=== PATIENT | female | born 1950 | race Caucasian/White ===

== ENCOUNTER 2019-09-11 11:10 | Outpatient (CLI) | payer MEDICARE, MEDICAID, SELFPAY ==
--- NOTE | 2019-09-11 11:12 | MM_ITS ---
WS: [id number] BILATERAL DIGITAL SCREENING MAMMOGRAPHY WITH CAD CLINICAL INFORMATION: SCREENING COMPARISON: September 24, 2016 TECHNIQUE: Bilateral CC and MLO views. FINDINGS: Scattered fibroglandular densities bilaterally. Incidental axillary lymph nodes. A few stable cluster ed calcifications. Vascular calcification. No suspicious focal mass, asymmetry, calcifications, or ar chitectural distortion. No evidence of malignancy. MM/[place] [id number] IMPRESSION: BI-RADS: 2-Benign FOLLOW UP: 1 Year Follow-up Recommend return to annual screening mammography.
== END 2019-09-11 11:11 | disposition home or self-care (01) ==
LOC: RADSHAW 11:10
PROVIDERS: Family Provider Family Medicine; PCP Family Medicine; Visit Provider Family Medicine
DX: Z12.31 Encounter for screening mammogram for malignant neoplasm of breast (principal)
CPT/HCPCS: 77067

== ENCOUNTER 2020-05-20 20:00 | Outpatient (CLI) | payer MEDICARE, MEDICAID, SELFPAY | END 2020-05-20 20:01 | disposition home or self-care (01) | LOC: SLEEP 05-21 09:34 | PROVIDERS: Family Provider Family Medicine; PCP Family Medicine; Visit Provider Family Medicine | DX: G47.33 Obstructive sleep apnea (adult) (pediatric) (principal) | CPT/HCPCS: 95810; 95811 ==

== ENCOUNTER 2020-07-03 20:00 | Outpatient (CLI) | payer MEDICARE, MEDICAID, SELFPAY | END 2020-07-03 20:01 | disposition home or self-care (01) | LOC: SLEEP 07-04 10:13 | PROVIDERS: Family Provider Family Medicine; PCP Family Medicine; Visit Provider Family Medicine | DX: G47.33 Obstructive sleep apnea (adult) (pediatric) (principal) | CPT/HCPCS: 95811 ==

== ENCOUNTER 2021-02-05 09:47 | Outpatient (CLI) | payer MEDICARE, MEDICAID, SELFPAY | END 2021-02-05 09:48 | disposition home or self-care (01) | LOC: WOUND 09:48 | PROVIDERS: Family Provider Family Medicine; PCP Family Medicine; Visit Provider Nurse Practitioner Family | DX: E11.622 Type 2 diabetes mellitus with other skin ulcer (principal); L97.902 Non-pressure chronic ulcer of unspecified part of unspecified lower leg with fat layer exposed | CPT/HCPCS: 11042; G0463 ==

== ENCOUNTER 2021-02-16 10:31 | Outpatient (CLI) | payer MEDICARE, MEDICAID, SELFPAY | END 2021-02-16 10:32 | disposition home or self-care (01) | LOC: WOUND 10:35 | PROVIDERS: Family Provider Family Medicine; PCP Family Medicine; Visit Provider Nurse Practitioner Family | DX: E11.622 Type 2 diabetes mellitus with other skin ulcer (principal); L97.818 Non-pressure chronic ulcer of other part of right lower leg with other specified severity | CPT/HCPCS: 11042 ==

== ENCOUNTER 2021-02-26 08:02 | Outpatient (CLI) | payer MEDICARE, MEDICAID, SELFPAY | END 2021-02-26 08:03 | disposition home or self-care (01) | LOC: WOUND 08:06 | PROVIDERS: Family Provider Family Medicine; PCP Family Medicine; Visit Provider Nurse Practitioner Family | DX: Z09 Encounter for follow-up examination after completed treatment for conditions other than malignant neoplasm (principal) | CPT/HCPCS: 99212 ==

== ENCOUNTER 2021-03-04 12:45 | Outpatient (CLI) | payer MEDICARE, MEDICAID, SELFPAY ==
--- NOTE | 2021-03-04 12:45 | USCV_ITS ---
Roz Mann Age: 70 Gender: F : 1950 Exam Date: 03/04/2021 12:39 Ordering Phys: Shanel Calderon DO Technologist: Marlin Mohamud Exam Location: [facility] – [place] Indication: LOWER EXTREMITY ULCER RIGHT LEFT Brachial 153.00 mmHg Brachial 144.00 mmHg Pressure (mmHg) Waveform Pressure (mmHg) Waveform 141.00 BUILDINGS AND GROUNDS DIRECTOR 125.00 136.00 DPA 121.00 0.92 Ankle/Brachial Index 0.82 124.00 Pre-Exercise Toe Pressure 97.00 0.81 Pre-Exercise Toe/Brachial Index 0.63 FINDINGS Slightly diminished resting ABIs bilaterally-0.92 on the right side and 0.82 on the left side Normal TBI on the right side with a diminished TBI on the left side CONCLUSIONS Features of mild peripheral artery disease on the left side. Possibly no significant arterial obstruction on the right side Dr Ebony Samaniego MD [facility] (Electronically Signed) Final Date: 08 March 2021 21:29 S
== END 2021-03-04 12:46 | disposition home or self-care (01) ==
LOC: US 12:47
PROVIDERS: PCP Family Medicine; Visit Provider Dermatology
DX: L95.0 Livedoid vasculitis (principal); I99.8 Other disorder of circulatory system; L97.909 Non-pressure chronic ulcer of unspecified part of unspecified lower leg with unspecified severity
CPT/HCPCS: 93922

== ENCOUNTER 2021-09-15 18:05 | Inpatient (IN) | payer MEDICARE, MEDICAID, SELFPAY ==
[2021-09-15 18:16] VITALS: BP 110/63; PULSE 103; RESP 20; TEMP 36.8; O2SAT 88; BMI 51.5
--- NOTE | 2021-09-15 18:31 | ECG_ITS ---
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 [id number]
--- NOTE | 2021-09-15 18:31 | XRR_ITS ---
PROCEDURE INFORMATION: Exam: XR Chest Exam date and time: 09/15/2021 6:31 PM Age: 71 years old Clinical indication: Shortness of breath; Additional info: SOB TECHNIQUE: Imaging protocol: XR of the chest. Views: 1 view. COMPARISON: No relevant prior studies available. FINDINGS: Lungs: Ill-defined interstitial and alveolar opacities in the lower lungs. Findings are suspicious for pneumonia, including atypical and viral organisms. Pleural spaces: No pleural effusion. No pneumothorax. Heart/Mediastinum: The cardiac silhouette is mildly enlarged. Mediastinal contours are unremarkable. Bones/joints: Unremarkable for age. XR/XR chest 1V portable [id number] IMPRESSION: 1. Ill-defined interstitial and alveolar opacities in the lower lungs. Findings are suspicious for pneumonia, including atypical and viral organisms. Recommend clinical correlation. Recommend followup chest imaging to insure resolution of these findings. 2. Incidental/nonacute findings are listed in the report.
[2021-09-15] MEDS: dexamethasone 4 mg/mL INJ 6 MG IVP (18:47)
[2021-09-15 18:48] LABS: Basophils % 0.3 %; Eosinophils # 0.3 10^3/uL (0.0-0.8); Eosinophils % 2.2 %; Hematocrit 38.5 % (37.0-47.0); Lymphocytes # 2.2 10^3/uL (0.8-4.8); Lymphocytes % 18.8 %; Mean Corpuscular HGB Conc 31.2 g/dL (30.0-36.0); Mean Corpuscular Hemoglobin 28.1 pg (28.0-34.0); Mean Corpuscular Volume 90.2 fl (81-99); Mean Platelet Volume 11.8 fL (7.4-10.4); Monocytes # 0.7 10^3/uL (0.2-0.9); Monocytes % 5.7 %; Neutrophils # 8.49 10^3/uL (1.8-7.7); Neutrophils % 72.2 %; Nucleated Red Blood Cells % 0 %; Platelet Count 191 10^3/cmm (130-400); Red Blood Count 4.27 10^6/uL (4.1-5.3); Red Cell Distribution Width 15.3 % (12.1-15.1); White Blood Count 11.8 10^3/uL (4.0-10.0)
[2021-09-15 18:50] VITALS: PULSE 126; RESP 18; O2SAT 97
[2021-09-15] MEDS: ipratropium-albuterol 3 mL Neb INHALATION ×2 (18:50→21:45)
[2021-09-15 18:54] VITALS: PULSE 128
--- NOTE | 2021-09-15 18:54 | W.ED.SOB ---
HPI - SOB/Dyspnea General: Chief Complaint: Shortness of Breath/Dyspnea Stated Complaint: O2 Stats Low 84 Time Seen by Provider: 09/15/21 18:17 Source: patient Mode of arrival: ambulatory Limitations: no limitations History of Present Illness: HPI Narrative: 71-year-old female states that she has been having fever chills body aches cough and increasing dyspnea over the last 3 days. She is got much more short of breath today and is in distress here able to only speak in 1-2 word sentences patient is currently on 6 L of oxygen states she does not wear oxygen at baseline she does have a history of obesity and diabetes denies any history of any lung issues in the past. Denies any chest pain. Associated symptoms: Reports fever(s); Deny abdominal pain, chest pain, nausea or vomiting Review of Systems Const: Reports: fever(s), chills and body aches; Denies: change in appetite Eyes: Denies: blurry vision or eye discomfort ENMT: Denies: throat pain or dental pain Card: Denies: chest pain Resp: Reports: dyspnea and non-productive cough GI: Denies: abdominal pain, nausea, vomiting or diarrhea : Denies: dysuria Musc: Denies: neck pain or back pain Skin/Breast: Denies: rash Neuro: Denies: headache(s) Psych: Denies: depression Ede/Lymph: Denies: easy bruising All/Imm: Denies: urticaria PFSH ED PFSH: Medical History Diabetes Essential (primary) hypertension Hyperlipidemia Surgical History H/O: hysterectomy History of appendectomy History of hernia surgery History of tonsillectomy History of tubal ligation Family History Other CAD (coronary artery disease) Social History Smoking and tobacco status: never smoked Alcohol intake: never History of recent travel: No Physical Exam Const: COMMON NORMALS: patient oriented x3 GENERAL APPEARANCE: in distress and ill appearing HENMT: COMMON NORMALS: normocephalic and atraumatic HEAD & SCALP: normocephalic and atraumatic Eye: COMMON NORMALS: Equal, round and reactive pupils present and EOMs intact bilaterally PUPIL: Yes Equal, round and reactive pupils present Neck/C-Spine: COMMON NORMALS: full ROM and supple Chest: COMMONS NORMALS: normal inspection of the chest and normal palpation of entire chest wall Resp: COMMON NORMALS: No retractions EFFORT & INSPECTION: Yes tachypneic, Yes respiratory distress and Yes labored AUSCULTATION: rales Cardio: COMMON NORMALS: regular rate, regular rhythm and No murmurs present (Cardio) RATE: regular rate RHYTHM: regular rhythm GI: COMMON NORMALS: Normal to inspection, nondistended, normoactive bowel sounds present, Soft to palpation, non-tender and no masses PALPATION: Yes Soft to palpation Extremity: COMMON NORMALS: normal to inspection and full ROM Neuro: COMMON NORMALS: patient oriented x3, moves all extremities and no focal motor deficits Psych: COMMON NORMALS: mental status grossly normal, Normal thought process present and cooperative THOUGHT PROCESS: Normal thought process present Skin: COMMON NORMALS: no rashes or lesions noted and no wounds GENERAL SKIN EXAM: no rashes or lesions noted Course Vital Signs: Vital signs: Vital Signs Temperature 98.3 F 09/15/21 18:16 Pulse Rate 82 09/15/21 22:14 Respiratory Rate 22 H 09/15/21 22:14 Blood Pressure 98/61 09/15/21 22:14 Pulse Oximetry 94 09/15/21 22:14 MDM - SOB/Dyspnea Medical Decision Making Patient presents here with dyspnea with hypoxia from COVID. Her PCR did come back positive for COVID she is doing well here on nasal cannula blood pressures been stable was originally in A. fib with RVR but is since heart rate is now in the 70s patient seen by hospitalist will admit. Lab Data : 09/15/21 18:37 09/15/21 18:37 Labs/Radiology: Radiology Impressions Chest X-Ray 09/15/21 18:31 IMPRESSION: 1. Ill-defined interstitial and alveolar opacities in the lower lungs. Findings are suspicious for pneumonia, including atypical and viral organisms. Recommend clinical correlation. Recommend followup chest imaging to insure resolution of these findings. 2. Incidental/nonacute findings are listed in the report. Laboratory Results WBC 11.8 10^3/uL (4.0-10.0) H 09/15/21 18:37 RBC 4.27 10^6/uL (4.1-5.3) 09/15/21 18: Hgb 12.0 g/dL (11.5-15.3) 09/15/21 18: Hct 38.5 % (37.0-47.0) 09/15/21 18: MCV 90.2 fl (81-99) 09/15/21 18: MCH 28.1 pg (28.0-34.0) 09/15/21 18: MCHC 31.2 g/dL (30.0-36.0) 09/15/21 18: RDW 15.3 % (12.1-15.1) H 09/15/21 18: Plt Count 191 10^3/cmm (130-400) 09/15/21 18: MPV 11.8 fL (7.4-10.4) H 09/15/21 18:37 Neut % (Auto) 72.2 % 09/15/21 18: Lymph % (Auto) 18.8 % 09/15/21 18:37 [place] % (Auto) 5.7 % 09/15/21 18:37 Eos % (Auto) 2.2 % 09/15/21 18:37 Baso % (Auto) 0.3 % 09/15/21 18:37 Neut # (Auto) 8.49 10^3/uL (1.8-7.7) H 09/15/21 18:37 Lymph # (Auto) 2.2 10^3/uL (0.8-4.8) 09/15/21 18:37 [place] # (Auto) 0.7 10^3/uL (0.2-0.9) 09/15/21 18:37 Eos # (Auto) 0.3 10^3/uL (0.0-0.8) 09/15/21 18:37 Baso # (Auto) 0.0 10^3/uL (0.0-0.1) 09/15/21 18:37 Nucleated RBC % (auto) 0 % 09/15/21 18: Nucleated RBCs # 0.0 /100WBC 09/15/21 18: D-Dimer 1.67 ug/mIFEU (0-0.59) H 09/15/21 18:37 Specimen Type Arterial 09/15/21: Sample Site Radial, left 09/15/21: ABG pH 7.46 (7.35-7.45) H 09/15/21: ABG pCO2 35.4 mmHg (35-45) 09/15/21: ABG pO2 95.0 mmHg (80.0-100.0) 09/15/21: ABG HCO3 25.2 mmol/L (22-26) 09/15/21: ABG Base Excess 1.6 mmol/L (-2.0-2.0) 09/15/21: Maximino Test Pos 09/15/21: Hematocrit 36.7 % (37-47) L 09/15/21: O2 Delivery Device Nc 09/15/21: O2 Liters/Min 6.0 % 09/15/21: Dental Technician ID Buttr 09/15/21: Sodium 137 mmol/L (136-145) 09/15/21 18:37 Potassium 4.1 mmol/L (3.5-5.1) 09/15/21 18:37 Chloride 100 mmol/L (98-107) 09/15/21 18:37 Carbon Dioxide 23 mmol/L (22-29) 09/15/21 18:37 Anion Gap 18.1 (5-19) 09/15/21 18:37 BUN 18 mg/dL (8-23) 09/15/21 18:37 Creatinine 1.3 mg/dL (0.5-0.9) H 09/15/21 18:37 GFR Calculation Not Reportable 09/15/21 18:37 Glucose 200 mg/dL (65-115) H 09/15/21 18:37 Calculated Osmolality 292 mOsm/kg (285-295) 09/15/21 18:37 Lactic Acid 1.8 mmol/L (0.5-2.2) 09/15/21 18:37 Calcium 8.1 mg/dL (8.5-10.5) L 09/15/21 18:37 Total Bilirubin 0.2 mg/dL (0.15-1.2) 09/15/21 18:37 AST 34 U/L (0-32) H 09/15/21 18:37 ALT 22 U/L (0-33) 09/15/21 18:37 Alkaline Phosphatase 326 IU/L (35-105) H 09/15/21 18:37 C-Reactive Protein 162.5 mg/L (0.0-4.9) H 09/15/21 18:37 NT-Pro-B Natriuret Pep 578 pg/mL (0-125) H 09/15/21 18:37 Total Protein 6.7 g/dL (6.6-8.7) 09/15/21 18:37 Albumin 3.7 g/dL (3.5-5.2) 09/15/21 18:37 Globulin 3.0 g/dL (1.3-4.6) 09/15/21 18:37 Procalcitonin 0.33 ng/mL (0-0.5) 09/15/21 18:37 TSH 2.13 uIU/mL (0.27-4.20) 09/15/21 18:37 Coronavirus 229E (PCR) Not detected (NOT DETECT) 09/15/21 18:47 SARS-CoV-2 (PCR) Detected (NOT DETECT) A 09/15/21 18:47 SARS-CoV-2 Ag (Rapid) Negative (Negative) 09/15/21 19:45 EKG Data EKG 1: I personally reviewed and interpreted this EKG as follows: EKG Interpretation Date: 09/15/21 EKG interpretation time: 18:52 Interpretation: afib rvr hr [address] or t wave abnormalities qrs 97 qtc 377 Critical Care Time Critical Care Time: Critical Care Time: Yes Total Critical Care Time: 40 Attestation: The high probability of a clinically significant, sudden or life threatening deterioration of the patient's resp system(s) required my full and direct attention, intervention and personal management. The critical care time is as shown. This time is in addition to time spent performing any reported procedures but includes the following: [x] Data and vital sign review and interpretation [x] Patient assessment, examination and intervention [x] Documentation [x] Medication orders and management Discharge Plan Discharge Patient Disposition: Admitted As Inpatient Clinical Impression: COVID-19, Respiratory failure with hypoxia Condition: Stable Coding Level of Care Code ED Finance Professor for Chg Fwd Exam Comprehensive
--- NOTE | 2021-09-15 18:55 | PC.NURSE ---
pt on continuous spo2, nibp, cm.
[2021-09-15 19:07] LABS: Lactic Sepsis W/Reflex 1.8 mmol/L (0.5-2.2)
--- NOTE | 2021-09-15 19:17 | PC.NURSE ---
report given to cornell vang assumed care.
[2021-09-15 19:27] LABS: D Dimer 1.67 ug/mIFEU (0-0.59)
[2021-09-15 19:40] LABS: ABG PCO2 35.4 mmHg (35-45); ABG PH Result 7.46 (7.35-7.45); Arterial Blood Gas Hematocrit 36.7 % (37-47); Base Excess ABG 1.6 mmol/L (-2.0-2.0); Blood Gas Allen Test Pos; Blood Gas Sample Site Radial, left; Blood Gas Sample Type Arterial; HCO3 ABG 25.2 mmol/L (22-26); Oxygen Device NC
[2021-09-15 19:43] LABS: Alanine Aminotransferase 22 U/L (0-33); Albumin Level 3.7 g/dL (3.5-5.2); Alkaline Phosphatase 326 IU/L (35-105); Anion Gap 18.1 (5-19); Aspartate Amino Transferase 34 U/L (0-32); Blood Urea Nitrogen 18 mg/dL (8-23); C Reactive Protein 162.5 mg/L (0.0-4.9); Calcium 8.1 mg/dL (8.5-10.5); Carbon Dioxide 23 mmol/L (22-29); Chloride 100 mmol/L (98-107); Creatinine Clr Calc Pharmacy 53.0871; Glucose 200 mg/dL (65-115); NT Pro B Type Natriuretic Pept 578 pg/mL (0-125); Osmolality Calculated 292 mOsm/kg (285-295); Potassium 4.1 mmol/L (3.5-5.1); Sodium 137 mmol/L (136-145); Total Bilirubin 0.2 mg/dL (0.15-1.2); Total Protein 6.7 g/dL (6.6-8.7)
[2021-09-15 20:13] LABS: SARS Covid-2 Antigen Negative (Negative)
[2021-09-15 21:02] LABS: Procalcitonin 0.33 ng/mL (0-0.5)
--- NOTE | 2021-09-15 21:10 | P.HP_ITS ---
Providers/Chief Complaint Admitting Physician: Nitesh Carney MD, hospitalist Primary Care Provider: Rm Cabral MD Chief Complaint: O2 Stats Low 84 History of Present Illness Roz Mann is a 71 year old female who presents to the emergency department with shortness of breath. She reports she has been ill for at least 2 weeks, started with nasal congestion and cough. In the last 3 to 4 days she has run a fever. She has felt significantly short of breath, and cough is productive of colored sputum. She denies any hemoptysis, chest pain. She reports she is vaccinated for Covid but has not received a booster. She denies any exposure to Covid. She has not had any nausea or vomiting. She denies any prior history of cardiac issues or arrhythmias. Review of Systems General: Reports: 10 or more systems reviewed and unremarkable except in HPI and below Const: Reports: fever(s) and fatigue Eyes: Denies: change in vision ENMT: Denies: throat pain Card: Denies: chest pain Resp: Reports: dyspnea and productive cough GI: Denies: abdominal pain, hematochezia or melena : Denies: flank pain Musc: Denies: neck pain Skin/Breast: Denies: rash Neuro: Denies: headache(s) Psych: Denies: anxiety Endo: Denies: polyuria Ede/Lymph: Denies: easy bruising All/Imm: Denies: urticaria Medications/Allergies Home Medications Medication Instructions Recorded Confirmed Last Taken Type aspirin 81 mg tablet,delayed 81 mg PO DAILY 01/29/21 08/24/21 Unknown History release (Adult Aspirin Regimen) glipizide 5 mg tablet 2.5 mg PO DAILY 01/29/21 08/24/21 Unknown History insulin degludec 100 unit/mL (3 15 unit SUBCUT DAILY 01/29/21 08/24/21 Unknown History mL) subcutaneous pen (Tresiba FlexTouch U-100 insulin) lisinopril 20 1 tab PO DAILY 01/29/21 08/24/21 Unknown History mg-hydrochlorothiazide 25 mg tablet metformin 1,000 mg tablet 1,000 mg PO BID 01/29/21 08/24/21 Unknown History metronidazole 1 % topical cream 1 applic TOPICAL DAILY 01/29/21 08/24/21 Unknown History rosuvastatin 20 mg tablet 20 mg PO DAILY 01/29/21 08/24/21 Unknown History diabetic shoes with 3 molded #1 ea 07/13/21 08/24/21 Unknown Rx inserts fluticasone propionate 50 1 spray INTRANASAL DAILY 07/13/21 08/24/21 Unknown History mcg/actuation nasal spray,suspension gabapentin 300 mg capsule 300 mg PO TID 30 Days #90 cap 07/13/21 08/24/21 Unknown Rx montelukast 10 mg tablet 10 mg PO DAILY 07/13/21 08/24/21 Unknown History gabapentin 300 mg capsule 300 mg PO TID 30 Days #90 cap 08/24/21 08/24/21 Unknown Rx Allergies Allergy/AdvReac Type Severity Reaction Status Date / Time No Known Allergies Allergy Verified 07/13/21 15:26 PFSH Acute PFSH: Medical History (Updated 09/15/21 @ 22:37 by Sommer Santo MD) Diabetes Essential (primary) hypertension Hyperlipidemia Surgical History (Updated 09/15/21 @ 21:12 by Nitesh Carney MD) H/O: hysterectomy History of appendectomy History of hernia surgery History of tonsillectomy History of tubal ligation Family History (Updated 09/15/21 @ 21:13 by Nitesh Carney MD) Other CAD (coronary artery disease) Social History (Updated 09/15/21 @ 21:13 by Nitesh Carney MD) Smoking and tobacco status: never smoked Alcohol intake: never History of recent travel: No Vitals/I&O/Wt Last Vital Signs Temp 98.3 F 09/15/21 18:16 Pulse 128 H 09/15/21 18:54 Resp 18 09/15/21 18:50 BP 110/63 09/15/21 18:16 Pulse Ox 97 09/15/21 18:50 Weight last 48 hrs Weight 136.078 kg Physical Exam Narrative: General exam is a white female, visibly short of breath with accessory muscle use on 6 L of oxygen HEENT: Pupils equally round. Oropharynx clear. Neck supple no lymphadenopathy or thyromegaly Cardiovascular irregular, irregular without murmur Lungs coarse breath sounds at the bases bilaterally Abdomen is soft nontender positive bowel sounds. Obese. exam is deferred Extremities no cyanosis clubbing or edema, cap refill brisk Skin without rash Neuro no focal deficits. Data : 09/15/21 18:37 09/15/21 18:37 Other Labs: EKG demonstrates atrial fibrillation with rapid ventricular rate, rate of around 125, normal axis Chest x-ray demonstrates bibasilar infiltrate. Dimer is 1.67 LFTs demonstrate alk phos of 326, CRP of 162, BNP of 578. AST slightly high at 34 Rapid Covid negative, PCR pending Micro: Microbiology 09/15/21 19:26 Blood Culture - Preliminary Blood SPECIMEN COLLECTED 09/15/21 18:37 Blood Culture - Preliminary Blood SPECIMEN COLLECTED A&P Assessment and plan (1) Pneumonia: Covid PCR has now come back positive. Initiate remdesivir, dexamethasone CRP is elevated, however patient did not start having fevers until 3 days ago in this 2-week illness. There may be superimposed bacterial pneumonia. We will not initiate baricitinib or Actemra currently. Budesonide, DuoNeb, incentive spirometer, flutter valve Prone is much as possible IV antibiotics consisting of Rocephin and azithromycin in case superimposed bacterial pneumonia is present Sputum culture, MRSA PCR. Check urinalysis Status: Acute (2) Atrial fibrillation: Appears to be in rapid ventricular rate on admission, but with treatment of respiratory status with breathing treatments, and oxygen heart rate has drifted down to 82. Full dose anticoagulation Check echocardiogram, TSH, magnesium Initiate low-dose metoprolol Status: Acute (3) Acute kidney injury: Hydrated in the emergency department Continue oral hydration, monitoring respiratory status closely Repeat BMP in the morning Check urinalysis Status: Acute (4) Elevated d-dimer: No further exploration currently. Patient will be on full dose anticoagulation with Lovenox secondary to atrial fibrillation Status: Acute Plan Multiple other medical problems as outlined in past medical history Full code Lovenox will suffice for DVT prophylaxis Protonix for GI prophylaxis Attestations Medical Necessity Statement*: Will need greater than 2 midnight stay for evaluation and treatment of acute hypoxic respiratory failure with pneumonia requiring significant amounts of oxygen. Coding Level of Care Code Acute Medical Billing Clerk for Maurilio Cao Diagnoses Pneumonia J18.9 Atrial fibrillation I48.91 Acute kidney injury N17.9 Elevated d-dimer R79.89
[2021-09-15] MEDS: cefTRIAXone 1,000 MG in sodium chloride 0.9% (plus) 50 ML 100 MG IV (21:33)
[2021-09-15] MEDS: sodium chloride 0.9% 1,000 ML 999 ML IV (21:33)
[2021-09-15 21:44] LABS: Thyroid Stimulating Hormone 2.13 uIU/mL (0.27-4.20)
[2021-09-15 21:45] VITALS: PULSE 78; RESP 14; O2SAT 94
[2021-09-15 22:14] VITALS: BP 98/61; PULSE 82; RESP 22; O2SAT 94
[2021-09-15 22:16] LABS: Adenovirus Not Detected (NOT DETECT); Chlamydia Pneumoniae Not Detected (NOT DETECT); Coronavirus 229E,HKU1,NL63,OC4 Not Detected (NOT DETECT); Human Metapneumovirus Not Detected (NOT DETECT); Human Rhinovirus/Enterovirus Not Detected (NOT DETECT); Influenza A Not Detected (NOT DETECT); Influenza A H1 Not Detected (NOT DETECT); Influenza A H1-2009 Not Detected (NOT DETECT); Influenza A H3 Not Detected (NOT DETECT); Influenza B Not Detected (NOT DETECT); Mycoplasma Pneumoniae Not Detected (NOT DETECT); Parainfluenza Virus Type 1 Not Detected (NOT DETECT); Parainfluenza Virus Type 2 Not Detected (NOT DETECT); Parainfluenza Virus Type 3 Not Detected (NOT DETECT); Parainfluenza Virus Type 4 Not Detected (NOT DETECT); Respiratory Syncytial Virus A Not Detected (NOT DETECT); Respiratory Syncytial Virus B Not Detected (NOT DETECT); SARS-COV-2 Detected (NOT DETECT)
[2021-09-15] MEDS: azithromycin 500 MG in sodium chloride 0.9% 250 ML 250 MG IV (22:29)
[2021-09-15] MEDS: enoxaparin 150 mg/mL Syringe 130 MG SUBCUT (22:38)
[2021-09-15 23:59] VITALS: BP 93/40; PULSE 75; RESP 12; O2SAT 96
[2021-09-16] VITALS (26 sets, daily range): BP systolic 97–155; BP diastolic 42–73; PULSE 64–78; RESP 14–32; TEMP 36.6–37; O2SAT 91–97
--- NOTE | 2021-09-16 | USCV_ITS ---
Transthoracic Echo Roz Mann Age: 71 Gender: F : 1950 Exam Date: 09/16/2021 02:32 Ordering Phys: Nitesh Carney MD Technologist: MIRNA Exam Location: [facility] – [place] Indication: Atrial fibrillation BP: / HR: 67 Rhythm: Sinus Technical Quality: Adequate MEASUREMENTS (Male / Female) Normal Values 2D ECHO LVOT Diameter 2.1 cm LA Diameter 3.2 cm LA Width 3.6 cm LA Height 5.5 cm Aorta at Sinotubular Diameter 2.8 cm DOPPLER AV Peak Velocity 188.0 cm/s LVOT Peak Velocity 197.0 cm/s AV Area Cont Eq vti 4.3 cm squared AV Area Cont Eq pk 3.5 cm squared MV Peak Velocity 89.0 cm/s MV Area PHT 4.9 cm squared Mitral E to A Ratio 1.7 MV E' Velocity 44.5 cm/s Mitral E to MV E' Ratio 15.0 Mitral E to LV E' Lateral Ratio 13.1 Mitral E to LV E' Septal Ratio 18.0 TR Peak Velocity 160.7 cm/s TR Peak Gradient 12.5 mmHg TR Mean Velocity 181.7 cm/s TR Mean Gradient 14.4 mmHg TR Velocity Time Integral 82.5 cm TV Peak E Velocity 123.0 cm/s Right Atrial Pressure 5.0 mmHg Pulmonary Artery Systolic Pressu 15.3 mmHg RV Acceleration Time 0.1 s RV Ejection Time 0.3 s RV AcT/ET 0.2 FINDINGS Left Ventricle Normal left ventricular cavity size. Normal left ventricular systolic function. Left ventricular ejection fraction is estimated at 65 %. Although no diagnostic regional wall motion abnormality could be rectified, this possibility cannot be completely excluded. Grade II diastolic dysfunction, moderately elevated filling pressures. Right Ventricle Normal right ventricular size and systolic function. Right ventricular systolic pressure 25 mm Hg. Right Atrium Right atrium not well visualized. Left Atrium Left atrium not well visualized. Mitral Valve Mild mitral annular calcification. Mildly thickened mitral valve. No mitral valve stenosis. No significant mitral valve regurgitation. Aortic Valve Aortic valve not well visualized. No aortic valve stenosis. Trace aortic valve regurgitation. Tricuspid Valve Structurally normal tricuspid valve. Pulmonic Valve Pulmonic valve not well visualized. Pericardium No pericardial effusion. Aorta Normal size aortic root and proximal ascending aorta. CONCLUSIONS 1. This is a technically difficult study with off axis images. 2. Normal left ventricular cavity size and systolic function. Left ventricular ejection fraction is estimated at 65 %. Although no diagnostic regional wall motion abnormality could be rectified, this possibility cannot be completely excluded. Grade II diastolic dysfunction, moderately elevated filling pressures. 3. No prior similar studies to compare. Yasmine Tam MD (Electronically Signed) Final Date: 16 September 2021 16:36 S
[2021-09-16] MEDS: remdesivir 200 MG in sodium chloride 0.9% (100 ml) 60 ML 100 MG IV (00:20)
[2021-09-16 00:21] LABS: Troponin T (5th) Once 18 ng/L (0-10)
[2021-09-16 00:28] LABS: Procalcitonin 0.31 ng/mL (0-0.5)
[2021-09-16] MEDS: ipratropium-albuterol 3 mL Neb INHALATION ×7 (01:49→23:31)
--- NOTE | 2021-09-16 04:37 | PC.NURSE ---
Pt. resting quietly in bed with eyes closed. Pt. states that she has no needs or complaints at this time. Pt. states that she would like some food, I have explained that the refrigerator is empty at this time and I will be looking for something.
[2021-09-16 06:10] LABS: Basophils % 0.2 %; Eosinophils % 0.1 %; Hematocrit 36.4 % (37.0-47.0); Hemoglobin 10.9 g/dL (11.5-15.3); Lymphocytes % 22.8 %; Mean Corpuscular HGB Conc 29.9 g/dL (30.0-36.0); Mean Corpuscular Hemoglobin 27.9 pg (28.0-34.0); Mean Corpuscular Volume 93.3 fl (81-99); Mean Platelet Volume 11.5 fL (7.4-10.4); Monocytes # 0.4 10^3/uL (0.2-0.9); Monocytes % 4.1 %; Neutrophils # 6.16 10^3/uL (1.8-7.7); Neutrophils % 71.9 %; Nucleated Red Blood Cells % 0 %; Platelet Count 176 10^3/cmm (130-400); Red Cell Distribution Width 15.4 % (12.1-15.1); White Blood Count 8.6 10^3/uL (4.0-10.0)
[2021-09-16 06:26] LABS: Alanine Aminotransferase 21 U/L (0-33); Albumin Level 3.3 g/dL (3.5-5.2); Alkaline Phosphatase 273 IU/L (35-105); Anion Gap 17.2 (5-19); Aspartate Amino Transferase 25 U/L (0-32); Blood Urea Nitrogen 20 mg/dL (8-23); C Reactive Protein 134.1 mg/L (0.0-4.9); Calcium 8.5 mg/dL (8.5-10.5); Carbon Dioxide 21 mmol/L (22-29); Chloride 104 mmol/L (98-107); Globulin 3.5 g/dL (1.3-4.6); Glucose 267 mg/dL (65-115); Osmolality Calculated 298 mOsm/kg (285-295); Potassium 4.2 mmol/L (3.5-5.1); Sodium 138 mmol/L (136-145); Total Bilirubin 0.2 mg/dL (0.15-1.2); Total Protein 6.8 g/dL (6.6-8.7)
--- NOTE | 2021-09-16 06:49 | P.PN_ITS ---
Subjective Subjective: He states Ursula reports she is feeling a little bit better this morning. Not coughing as much. She is trying to lay on her side as much as possible. No chest discomfort. Medications: Reviewed: Yes Vitals/I&O/Wt Last Vital Signs Temp 98.3 F 09/15/21 18:16 Pulse 66 09/16/21 05:39 Resp 16 09/16/21 05:39 BP 103/42 09/16/21 05:39 Pulse Ox 94 09/16/21 05:39 09/15/21 09/15/21 09/16/21 14:59 22:59 06:59 Intake Total 50 / 50 1310 / 1360 Balance 50 / 50 1310 / 1360 Weight last 48 hrs Weight 136.078 kg Physical Exam Narrative: General exam no distress currently on oxygen. Telemetry shows sinus rhythm today. Neck supple no lymphadenopathy or thyromegaly Cardiovascular regular rate and rhythm without murmur Lungs coarse breath sounds at the bases bilaterally Abdomen is soft nontender positive bowel sounds. Obese. Extremities no cyanosis clubbing or edema, cap refill brisk Data : 09/16/21 05:55 09/16/21 05:55 Micro: Microbiology 09/15/21 19:26 Blood Culture - Preliminary Blood SPECIMEN COLLECTED 09/15/21 18:37 Blood Culture - Preliminary Blood SPECIMEN COLLECTED A&P Assessment and plan (1) Pneumonia: Covid PCR has now come back positive. Continue remdesivir, dexamethasone CRP is elevated, however patient did not start having fevers until 3 days ago in this 2-week illness. There may be superimposed bacterial pneumonia. We will not initiate baricitinib or Actemra currently. Budesonide, DuoNeb, incentive spirometer, flutter valve Prone is much as possible Continue Rocephin and azithromycin in case superimposed bacterial pneumonia is present Await sputum culture, MRSA PCR. Urinalysis not yet collected CRP is decreasing. Status: Acute (2) Atrial fibrillation: A. fib with RVR on admission. Metoprolol started. She is already converted to sinus rhythm. Continue full dose anticoagulation Await echocardiogram TSH and magnesium were checked and normal Echocardiogram pending Status: Acute (3) Acute kidney injury: Hydrated in the emergency department Continue oral hydration, monitoring respiratory status closely Await urinalysis Creatinine improved Status: Acute (4) Elevated d-dimer: No further exploration currently. Patient will be on full dose anticoagulation with Lovenox secondary to atrial fibrillation Status: Acute Plan Multiple other medical problems as outlined in past medical history Full code Lovenox will suffice for DVT prophylaxis Protonix for GI prophylaxis Attestations Medical Necessity Statement*: Needs continued hospital stay secondary to COVID-19 pneumonia with hypoxia. Coding Level of Care Code Acute General Cleaner for [facility] Diagnoses Pneumonia J18.9 Atrial fibrillation I48.91 Acute kidney injury N17.9 Elevated d-dimer R79.89
[2021-09-16] MEDS: insulin lispro 100 unit/1 mL SUBCUT ×4 (08:33→21:11)
[2021-09-16] MEDS: atorvastatin 40 mg Tablet 80 MG PO (08:36)
[2021-09-16] MEDS: budesonide 0.5 mg/2 mL Neb INHALATION ×2 (08:48→19:30)
[2021-09-16] MEDS: pantoprazole DR 40 mg Tablet PO (09:07)
[2021-09-16] MEDS: aspirin 81 mg EC Tablet PO (09:07)
[2021-09-16] MEDS: metoprolol tartrate 25 mg Tablet 12.5 MG PO ×2 (09:07→21:01)
[2021-09-16 09:49] LABS: Glucose Point of Care 226 mg/dL (70-110)
[2021-09-16] MEDS: enoxaparin 150 mg/mL Syringe 130 MG SUBCUT ×2 (11:06→21:01)
[2021-09-16] MEDS: gabapentin 300 mg Capsule PO ×3 (11:07→21:00)
[2021-09-16 11:32] LABS: Glucose Point of Care 217 mg/dL (70-110)
[2021-09-16 16:02] LABS: Glucose Point of Care 213 mg/dL (70-110)
[2021-09-16] MEDS: remdesivir 100 MG in sodium chloride 0.9% (100 ml) 80 ML IV (16:45)
[2021-09-16] MEDS: dexamethasone 10 mg/mL INJ 6 MG IVP (19:51)
[2021-09-16] MEDS: cefTRIAXone 1,000 MG in sodium chloride 0.9% (plus) 50 ML 100 MG IV (19:52)
[2021-09-16 20:34] LABS: Glucose Point of Care 207 mg/dL (70-110)
[2021-09-16] MEDS: azithromycin 500 MG in sodium chloride 0.9% 250 ML 250 MG IV (20:44)
[2021-09-16 21:45] LABS: Glucose Point of Care 205 mg/dL (70-110)
[2021-09-17] VITALS (18 sets, daily range): BP systolic 93–146; BP diastolic 49–92; PULSE 58–75; RESP 16–22; TEMP 35.7–36.4; O2SAT 87–99
[2021-09-17 03:09] LABS: Basophils % 0.2 %; Eosinophils % 0.2 %; Hematocrit 35.2 % (37.0-47.0); Hemoglobin 10.7 g/dL (11.5-15.3); Lymphocytes # 1.5 10^3/uL (0.8-4.8); Mean Corpuscular HGB Conc 30.4 g/dL (30.0-36.0); Mean Corpuscular Hemoglobin 28.2 pg (28.0-34.0); Mean Corpuscular Volume 92.9 fl (81-99); Monocytes # 0.6 10^3/uL (0.2-0.9); Monocytes % 5.6 %; Neutrophils # 8.63 10^3/uL (1.8-7.7); Neutrophils % 79.1 %; Nucleated Red Blood Cells % 0 %; Platelet Count 226 10^3/cmm (130-400); Red Blood Count 3.79 10^6/uL (4.1-5.3); Red Cell Distribution Width 15.3 % (12.1-15.1); White Blood Count 10.9 10^3/uL (4.0-10.0)
[2021-09-17 03:30] LABS: Alanine Aminotransferase 29 U/L (0-33); Albumin Level 3.5 g/dL (3.5-5.2); Alkaline Phosphatase 270 IU/L (35-105); Anion Gap 15.8 (5-19); Aspartate Amino Transferase 35 U/L (0-32); Blood Urea Nitrogen 27 mg/dL (8-23); Calcium 8.5 mg/dL (8.5-10.5); Carbon Dioxide 23 mmol/L (22-29); Chloride 103 mmol/L (98-107); Globulin 3.1 g/dL (1.3-4.6); Glucose 272 mg/dL (65-115); Osmolality Calculated 299 mOsm/kg (285-295); Potassium 4.8 mmol/L (3.5-5.1); Sodium 137 mmol/L (136-145); Total Bilirubin 0.2 mg/dL (0.15-1.2); Total Protein 6.6 g/dL (6.6-8.7)
[2021-09-17 03:31] LABS: D Dimer 0.79 ug/mIFEU (0-0.59)
[2021-09-17 06:30] LABS: Glucose Point of Care 317 mg/dL (70-110)
[2021-09-17 07:40] LABS: Bilirubin Urine Neg (Negative); Blood Urine 2+ (Negative); Glucose Urine UA 1+ (Normal); Ketones Urine Negative (Negative); Leukocyte Esterase Urine Negative (Negative); Nitrate Urine Negative (Negative); Protein Urine 1+ (Negative); Urine Appearance Clear (CLEAR); Urine Color Yellow (Yellow); Urobilinogen Urine Norm (Negative); pH Urine 5 (5-7)
[2021-09-17 07:41] LABS: Add Urine Culture? No; Bacteria Urine 1+ /hpf; Mucus Urine TRACE /hpf; RBC Urine 0-4 /hpf (0-2); Squamous Epithelial Cell Urine 0-4 /hpf (0-5)
[2021-09-17] MEDS: ipratropium-albuterol 3 mL Neb INHALATION ×2 (07:41→12:02)
[2021-09-17] MEDS: budesonide 0.5 mg/2 mL Neb INHALATION (07:41)
[2021-09-17] MEDS: insulin lispro 100 unit/1 mL SUBCUT ×2 (07:50→11:52)
[2021-09-17] MEDS: enoxaparin 150 mg/mL Syringe 130 MG SUBCUT (07:52)
[2021-09-17] MEDS: atorvastatin 40 mg Tablet 80 MG PO (08:02)
[2021-09-17] MEDS: gabapentin 300 mg Capsule PO ×2 (08:02→15:58)
[2021-09-17] MEDS: pantoprazole DR 40 mg Tablet PO (08:02)
[2021-09-17] MEDS: aspirin 81 mg EC Tablet PO (08:02)
[2021-09-17] MEDS: metoprolol tartrate 25 mg Tablet 12.5 MG PO (09:26)
[2021-09-17 11:41] LABS: Glucose Point of Care 224 mg/dL (70-110)
--- NOTE | 2021-09-17 12:56 | PM.DCS ---
Discharge Providers Date of Admission: 09/16/21 03:31 Date of Discharge: September 17, 2021 Attending Provider at Admission: Nitesh Carney MD Attending Provider at Discharge: Franklyn Ceballos Primary Care Provider: Rm Cabral MD Diagnoses at Discharge Discharge Diagnosis (1) Pneumonia: Status: Acute (2) Atrial fibrillation: Status: Acute (3) Acute kidney injury: Status: Acute (4) Elevated d-dimer: Status: Acute Reason for Visit Reason for Visit: O2 Stats Low 84 Hospital Course Hospital Course Pleasant 71-year-old lady with history of diabetes, HTN, HLD, obesity, admitted due to malaise of 2 weeks duration, cough, progressive shortness of breath, found to have severe COVID-19, possible superimposed bacterial pneumonia. Started on treatment with ceftriaxone, azithromycin, remdesivir, dexamethasone. Noted to be in new atrial fibrillation with RVR on presentation. Started on low-dose metoprolol with improvement, started on anticoagulation for stroke protection. Noted mild acute kidney injury on presentation, creatinine 1.3. LUH inhibitor for now held. As to avoid any nephrotoxins. Her symptoms have been improving, she is feeling much better today. Had mild diarrhea yesterday, but this is since resolved. Tolerating oral intake. Shortness of breath is better. Wean down from 6 L nasal cannula oxygen needed initially down to 3 L currently. Feels comfortable continuing her recovery at home. Home oxygen evaluation is requested. Blood cultures so far negative. MRSA PCR was negative. Sputum culture is in progress. Physical Exam Const: COMMON NORMALS: no acute distress and patient oriented x3 NUTRITIONAL APPEARANCE: obese HENMT: COMMON NORMALS: oropharynx normal Neck/C-Spine: COMMON NORMALS: no JVD Resp: COMMON NORMALS: normal respiratory effort and clear to auscultation bilaterally AUSCULTATION: clear to auscultation bilaterally Cardio: COMMON NORMALS: no JVD, regular rhythm, S1 normal heart sound present, S2 normal heart sound present and No murmurs present (Cardio) RHYTHM: regular rhythm HEART SOUNDS: S1 normal heart sound present and S2 normal heart sound present GI: COMMON NORMALS: Normal to inspection, nondistended, normoactive bowel sounds present, Soft to palpation and non-tender PALPATION: Yes Soft to palpation Extremity: COMMON NORMALS: no joint enlargement and no pedal edema OTHER: Chronic stasis changes. Neuro: COMMON NORMALS: patient oriented x3 and moves all extremities Skin: COMMON NORMALS: no rashes or lesions noted GENERAL SKIN EXAM: no rashes or lesions noted Discharge Data Studies Completed and Pending Completed Studies During Hospitalization Category Date Time Status XR chest 1V portable [id number] Stat Exams 09/15/21 18:31 Completed Pending at discharge Category Date Time Status Blood Culture Stat Lab 09/15/21 19:26 Results Sputum Culture and Gram Stain Routine Lab 09/16/21 00:49 Results CV. echo complete* [id number] Routine Ultrasound 09/16/21 21:17 Taken Radiology Impressions Chest X-Ray 09/15/21 18:31 IMPRESSION: 1. Ill-defined interstitial and alveolar opacities in the lower lungs. Findings are suspicious for pneumonia, including atypical and viral organisms. Recommend clinical correlation. Recommend followup chest imaging to insure resolution of these findings. 2. Incidental/nonacute findings are listed in the report. Laboratory Results WBC 10.9 10^3/uL (4.0-10.0) H 09/17/21 02:24 RBC 3.79 10^6/uL (4.1-5.3) L 09/17/21 02:24 Hgb 10.7 g/dL (11.5-15.3) L 09/17/21 02:24 Hct 35.2 % (37.0-47.0) L 09/17/21 02:24 MCV 92.9 fl (81-99) 09/17/21 02:24 MCH 28.2 pg (28.0-34.0) 09/17/21 02:24 MCHC 30.4 g/dL (30.0-36.0) 09/17/21 02:24 RDW 15.3 % (12.1-15.1) H 09/17/21 02:24 Plt Count 226 10^3/cmm (130-400) 09/17/21 02:24 MPV 12.0 fL (7.4-10.4) H 09/17/21 02:24 Neut % (Auto) 79.1 % 09/17/21 02:24 Lymph % (Auto) 14.0 % 09/17/21 02:24 [place] % (Auto) 5.6 % 09/17/21 02:24 Eos % (Auto) 0.2 % 09/17/21 02:24 Baso % (Auto) 0.2 % 09/17/21 02:24 Neut # (Auto) 8.63 10^3/uL (1.8-7.7) H 09/17/21 02:24 Lymph # (Auto) 1.5 10^3/uL (0.8-4.8) 09/17/21 02:24 [place] # (Auto) 0.6 10^3/uL (0.2-0.9) 09/17/21 02:24 Eos # (Auto) 0.0 10^3/uL (0.0-0.8) 09/17/21 02:24 Baso # (Auto) 0.0 10^3/uL (0.0-0.1) 09/17/21 02:24 Nucleated RBC % (auto) 0 % 09/17/21 02: Nucleated RBCs # 0.0 /100WBC 09/17/21 02: D-Dimer 0.79 ug/mIFEU (0-0.59) H 09/17/21 02:24 Specimen Type Arterial 09/15/21 19:28 Sample Site Radial, left 09/15/21 19:28 ABG pH 7.46 (7.35-7.45) H 09/15/21 19:28 ABG pCO2 35.4 mmHg (35-45) 09/15/21 19:28 ABG pO2 95.0 mmHg (80.0-100.0) 09/15/21 19: ABG HCO3 25.2 mmol/L (22-26) 09/15/21 19: ABG Base Excess 1.6 mmol/L (-2.0-2.0) 09/15/21 19:28 Maximino Test Pos 09/15/21 19:28 Hematocrit 36.7 % (37-47) L 09/15/21 19:28 O2 Delivery Device Nc 09/15/21 19:28 O2 Liters/Min 6.0 % 09/15/21 19:28 Landfill Gas Collection Operator ID Buttr 09/15/21 19:28 Sodium 137 mmol/L (136-145) 09/17/21 02:24 Potassium 4.8 mmol/L (3.5-5.1) 09/17/21 02:24 Chloride 103 mmol/L (98-107) 09/17/21 02:24 Carbon Dioxide 23 mmol/L (22-29) 09/17/21 02:24 Anion Gap 15.8 (5-19) 09/17/21 02:24 BUN 27 mg/dL (8-23) H 09/17/21 02:24 Creatinine 1.2 mg/dL (0.5-0.9) H 09/17/21 02:24 GFR Calculation Not Reportable 09/17/21 02:24 Glucose 272 mg/dL (65-115) H 09/17/21 02:24 POC Glucose 224 mg/dL (70-110) H 09/17/21 11:31 Calculated Osmolality 299 mOsm/kg (285-295) H 09/17/21 02:24 Lactic Acid 1.8 mmol/L (0.5-2.2) 09/15/21 18:37 Calcium 8.5 mg/dL (8.5-10.5) 09/17/21 02:24 Magnesium 2.0 mg/dL (1.7-2.3) 09/15/21 18:37 Total Bilirubin 0.2 mg/dL (0.15-1.2) 09/17/21 02:24 AST 35 U/L (0-32) H 09/17/21 02:24 ALT 29 U/L (0-33) 09/17/21 02:24 Alkaline Phosphatase 270 IU/L (35-105) H 09/17/21 02:24 Troponin T Gen 5 ng/L 18 ng/L (0-10) H 09/15/21 18:37 C-Reactive Protein 134.1 mg/L (0.0-4.9) H 09/16/21 05:55 NT-Pro-B Natriuret Pep 578 pg/mL (0-125) H 09/15/21 18:37 Total Protein 6.6 g/dL (6.6-8.7) 09/17/21 02:24 Albumin 3.5 g/dL (3.5-5.2) 09/17/21 02:24 Globulin 3.1 g/dL (1.3-4.6) 09/17/21 02:24 Procalcitonin 0.31 ng/mL (0-0.5) 09/15/21 18:37 Procalcitonin 0.33 ng/mL (0-0.5) 09/15/21 18:37 TSH 2.13 uIU/mL (0.27-4.20) 09/15/21 18:37 Urine Color Yellow (Yellow) 09/17/21 07:20 Urine Appearance Clear (CLEAR) 09/17/21 07:20 Urine pH 5 (5-7) 09/17/21 07:20 Ur Specific [place] 1.020 (1.005-1.030) 09/17/21 07:20 Urine Protein 1+ (Negative) H 09/17/21 07:20 Urine Glucose (UA) 1+ (Normal) H 09/17/21 07:20 Urine Ketones Negative (Negative) 09/17/21 07:20 Urine Blood 2+ (Negative) H 09/17/21 07:20 Urine Nitrate Negative (Negative) 09/17/21 07:20 Urine Bilirubin Neg (Negative) 09/17/21 07:20 Urine Urobilinogen Norm mg/dL (Negative) 09/17/21 07:20 Ur Leukocyte Esterase Negative (Negative) 09/17/21 07:20 Urine RBC 0-4 /hpf (0-2) H 09/17/21 07:20 Urine WBC None /hpf (0-5) 09/17/21 07:20 Ur Squamous Epith Cells 0-4 /hpf (0-5) H 09/17/21 07:20 Amorphous Sediment Not Reportable 09/17/21 07:20 Urine Bacteria 1+ /hpf (NONE) H 09/17/21 07:20 Urine Mucus Trace /hpf 09/17/21 07:20 Coronavirus 229E (PCR) Not detected (NOT DETECT) 09/15/21 18:47 SARS-CoV-2 (PCR) Detected (NOT DETECT) A 09/15/21 18:47 SARS-CoV-2 Ag (Rapid) Negative (Negative) 09/15/21 19:45 Vitals Last Vital Signs Temp 96.3 F L 09/17/21 12:00 Pulse 68 09/17/21 12:12 Resp 18 09/17/21 12:12 BP 116/92 09/17/21 12:00 Pulse Ox 94 09/17/21 12:12 Discharge Plan Discharge Patient Disposition: Home Condition: Stable Prescriptions: New benzonatate 200 mg capsule 200 mg PO BID PRN (Reason: cough) Qty: 60 0RF Eliquis 5 mg tablet 5 mg PO BID Qty: 90 0RF azithromycin 500 mg tablet 500 mg PO DAILY 5 Days Qty: 5 0RF metoprolol tartrate 25 mg Tablet 12.5 mg PO BID@0900,2100 Qty: 180 0RF Robitussin Cough-Chest Ryan DM 5-100 mg/5 mL liquid 10 ml PO Q4H PRN (Reason: cough) Qty: 237 0RF cefdinir 300 mg capsule 300 mg PO BID 5 Days Qty: 10 0RF Continued metformin 1,000 mg tablet 1,000 mg PO BID 0RF rosuvastatin 20 mg tablet 20 mg PO BEDTIME 0RF aspirin [Adult Aspirin Regimen] 81 mg tablet,delayed release (DR/EC) 81 mg PO BEDTIME 0RF montelukast 10 mg tablet 10 mg PO BEDTIME 0RF fluticasone propionate 50 mcg/actuation spray,suspension 1 spray intranasal BID 0RF Rx Instructions: administer into each nostril (DME) diabetic shoes with 3 molded inserts See Rx Instructions .Route .MEDSUPPLY Qty: 1 0RF Rx Instructions: As directed gabapentin 300 mg capsule 300 mg PO TID 30 Days Qty: 90 2RF glipizide 5 mg tablet extended release 24hr 5 mg PO QAM 0RF triamcinolone acetonide 0.1 % cream 1 applic TOPICAL BID PRN (Reason: UNKNOWN) 0RF levothyroxine 100 mcg tablet 100 mcg PO .MON THROUGH FRI 0RF levothyroxine 125 mcg tablet 125 mcg PO .ON SAT AND SUN 0RF furosemide 20 mg tablet 20 mg PO DAILY PRN (Reason: Edema) 0RF azelastine 137 mcg (0.1 %) aerosol,spray 2 spray INTRANASAL BID 0RF albuterol sulfate 90 mcg/actuation HFA aerosol inhaler 2 puff INHALATION BID PRN (Reason: Shortness Of Breath) 0RF Tradjenta 5 mg tablet 5 mg PO BEDTIME 0RF Rene Mag Zinc Plus D3 333 mg-133 unit -133 mg-5 mg Tablet 3 tab PO BEDTIME 0RF Myrbetriq 25 mg tablet extended release 24 hr 25 mg PO QAM 0RF Tresiba FlexTouch U-200 200 unit/mL (3 mL) insulin pen 64 unit SUBCUT QAM 0RF Held lisinopril 20 mg tablet 20 mg PO QAM 0RF Hold Instructions: Resume on 09/28/21. Discharge Orders: Discharge Order (Routine); Ordered 09/17/21 Ordered By: Franklyn Ceballos Referrals: Rm Cabral MD [Primary Care Provider] - 1 week Discharge Diet: Diabetic and Low Cholesterol Discharge Activity: Increase activity as tolerated and Oxygen as instructed Patient Instructions: A-fib (Atrial Fibrillation) (GEN), Acute Kidney Injury (GEN), Using Oxygen at Home (GEN), Hypoxia (GEN), COVID-19 (Coronavirus Disease 2019) (GEN), How to Recover from COVID-19 at Home (GEN) Activity Restrictions/Additional Instructions: Target oxygen saturation 90-92%. Increase oxygen flow in case oxygen level falling below 88%. Decrease oxygen flow if oxygen staying in high 90s. Seek medical attention if your oxygen level persistently below 88% despite increasing oxygen flow, taking a rest from activity, or having chest pain or pressure, fainting, or any other concerning symptoms. Avoid bouts of cough, take cough medicine. Maintain droplet and contact precautions for additional 6 days, then isolation may be discontinued. Hold losartan for now due to mild acute kidney injury. Please have your primary doctor follow-up your renal function. Avoid any NSAIDs like ibuprofen, Aleve, or other medications that may injure your kidneys. Please discuss with your primary doctor also regarding finding of atrial fibrillation presentation. To reduce risk of stroke you are started on blood thinner medication. Avoid any injury as this medication increase your risk of bleeding. If experiencing bleeding that is not minor and is not stopping, do not take any more of the blood thinner medication and seek medical attention immediately. Discharge Attestations Time Spent in Discharge Care*: greater than 30 min Quality Metrics Clinical Quality Measures [ No reported AMI, CVA or VTE this stay] Coding Level of Care Code Acute Chg FW DC note Diagnoses Pneumonia J18.9 Atrial fibrillation I48.91 Acute kidney injury N17.9 Elevated d-dimer R79.89
== END 2021-09-17 17:30 | disposition home or self-care (01) | DRG 177 ==
LOC: ER 22:37 → CSU 09-16 05:52
PROVIDERS: Admitting Provider Internal Medicine; Emergency Provider Emergency Medicine; PCP Family Medicine; Visit Provider Internal Medicine
DX: U07.1 COVID-19 (principal); J12.82 Pneumonia due to coronavirus disease 2019; J96.01 Acute respiratory failure with hypoxia; J18.9 Pneumonia, unspecified organism; N17.9 Acute kidney failure, unspecified; Z68.43 Body mass index [BMI] 50.0-59.9, adult; I48.91 Unspecified atrial fibrillation; R79.1 Abnormal coagulation profile; E11.9 Type 2 diabetes mellitus without complications; E78.5 Hyperlipidemia, unspecified; E66.9 Obesity, unspecified; Z79.84 Long term (current) use of oral hypoglycemic drugs; Z79.82 Long term (current) use of aspirin; Z79.4 Long term (current) use of insulin
CPT/HCPCS: 36415; 36416; 36600; 71045; 80053; 81001; 82803; 82962; 83605; 83735; 83880; 84145; 84443; 84484; 85025; 85378; 86140; 87040; 87070; 87205; 87426; 87635; 87641; 93005; 93306; 94640; 96365; 96367; 96372; 96375; 99285; J0456; J0696; J1100; J1650; J1815; J7030; J7050; J7626

== ENCOUNTER → 2022-02-02 08:57 | Outpatient (BNVA) | payer MEDICARE, MEDICAID, SELFPAY | PROVIDERS: PCP Family Medicine; Visit Provider Podiatrist Foot & Ankle Surgery | DX: E11.42 Type 2 diabetes mellitus with diabetic polyneuropathy (principal); M79.671 Pain in right foot; M79.672 Pain in left foot; M21.41 Flat foot [pes planus] (acquired), right foot; M21.42 Flat foot [pes planus] (acquired), left foot; L60.3 Nail dystrophy | CPT/HCPCS: 99213; 99214 ==

== ENCOUNTER → 2022-05-11 09:01 | Outpatient (BNVA) | payer MEDICARE, MEDICAID, SELFPAY | PROVIDERS: PCP Family Medicine; Visit Provider Podiatrist Foot & Ankle Surgery | DX: E11.8 Type 2 diabetes mellitus with unspecified complications (principal); E11.42 Type 2 diabetes mellitus with diabetic polyneuropathy; M21.41 Flat foot [pes planus] (acquired), right foot; M21.42 Flat foot [pes planus] (acquired), left foot; L60.3 Nail dystrophy; Z79.4 Long term (current) use of insulin | CPT/HCPCS: 11721 ==

== ENCOUNTER → 2022-08-10 08:46 | Outpatient (BNVA) | payer MEDICARE, MEDICAID, SELFPAY | PROVIDERS: PCP Family Medicine; Visit Provider Podiatrist Foot & Ankle Surgery | DX: E11.42 Type 2 diabetes mellitus with diabetic polyneuropathy (principal); M21.41 Flat foot [pes planus] (acquired), right foot; M21.42 Flat foot [pes planus] (acquired), left foot; L60.3 Nail dystrophy; E11.8 Type 2 diabetes mellitus with unspecified complications; Z79.84 Long term (current) use of oral hypoglycemic drugs; Z79.4 Long term (current) use of insulin | CPT/HCPCS: 11721 ==

== ENCOUNTER 2022-08-24 09:31 | Outpatient (RCR) | payer MEDICARE, MEDICAID, SELFPAY | END 2022-08-31 23:59 | disposition home or self-care (01) | LOC: SOT 09:31 | PROVIDERS: PCP Family Medicine; Visit Provider Family Medicine | DX: M65.311 Trigger thumb, right thumb (principal) | CPT/HCPCS: 97110; 97166 ==

== ENCOUNTER 2022-09-01 06:00 | Outpatient (RCR) | payer MEDICARE, MEDICAID, SELFPAY | END 2022-09-28 23:59 | disposition home or self-care (01) | LOC: SOT 06:00 | PROVIDERS: PCP Family Medicine; Visit Provider Family Medicine | DX: M65.311 Trigger thumb, right thumb (principal) | CPT/HCPCS: 97018; 97035; 97110; 97140 ==

== ENCOUNTER → 2022-09-21 07:56 | Outpatient (BNVA) | payer MEDICARE, MEDICAID, SELFPAY | PROVIDERS: PCP Family Medicine; Referring Provider Family Medicine; Visit Provider Orthopaedic Surgery | DX: M65.311 Trigger thumb, right thumb (principal) | CPT/HCPCS: 99203 ==

== ENCOUNTER 2022-09-29 06:00 | Outpatient (RCR) | payer MEDICARE, MEDICAID, SELFPAY | END 2022-10-27 23:59 | disposition home or self-care (01) | LOC: SOT 06:00 | PROVIDERS: PCP Family Medicine; Visit Provider Family Medicine | DX: M65.311 Trigger thumb, right thumb (principal) | CPT/HCPCS: 97110 ==

== ENCOUNTER → 2022-11-16 08:04 | Outpatient (BNVA) | payer MEDICARE, MEDICAID, SELFPAY | PROVIDERS: PCP Family Medicine; Visit Provider Podiatrist Foot & Ankle Surgery | DX: E11.42 Type 2 diabetes mellitus with diabetic polyneuropathy (principal); M21.41 Flat foot [pes planus] (acquired), right foot; M21.42 Flat foot [pes planus] (acquired), left foot; L60.3 Nail dystrophy; E11.8 Type 2 diabetes mellitus with unspecified complications; Z79.84 Long term (current) use of oral hypoglycemic drugs; Z79.4 Long term (current) use of insulin | CPT/HCPCS: 11721 ==

== ENCOUNTER 2023-01-25 09:21 | Outpatient (RCR) | payer MEDICARE, MEDICAID, SELFPAY | END 2023-01-28 23:59 | disposition home or self-care (01) | LOC: SOT 09:21 | PROVIDERS: PCP Family Medicine; Visit Provider Family Medicine | DX: M77.12 Lateral epicondylitis, left elbow (principal) | CPT/HCPCS: 97110; 97166; 97530 ==

== ENCOUNTER 2023-02-11 14:56 | Outpatient (RCR) | payer MEDICARE, MEDICAID, SELFPAY | END 2023-02-28 23:59 | disposition home or self-care (01) | LOC: SOT 14:56 | PROVIDERS: PCP Family Medicine; Visit Provider Family Medicine | DX: M77.12 Lateral epicondylitis, left elbow (principal) | CPT/HCPCS: 97035; 97110; 97124; 97140 ==

== ENCOUNTER → 2023-02-16 09:16 | Outpatient (BNVA) | payer MEDICARE, MEDICAID, SELFPAY | PROVIDERS: PCP Family Medicine; Visit Provider Podiatrist Foot & Ankle Surgery | DX: M21.41 Flat foot [pes planus] (acquired), right foot (principal); M21.42 Flat foot [pes planus] (acquired), left foot; L60.3 Nail dystrophy; E11.42 Type 2 diabetes mellitus with diabetic polyneuropathy | CPT/HCPCS: 11721 ==

== ENCOUNTER 2023-03-01 06:00 | Outpatient (RCR) | payer MEDICARE, MEDICAID, SELFPAY | END 2023-03-31 23:59 | disposition home or self-care (01) | LOC: SOT 06:00 | PROVIDERS: PCP Family Medicine; Visit Provider Family Medicine | DX: M65.311 Trigger thumb, right thumb (principal) | CPT/HCPCS: 97035; 97110; 97140 ==

== ENCOUNTER → 2023-05-18 09:20 | Outpatient (BNVA) | payer MEDICARE, MEDICAID, SELFPAY | PROVIDERS: PCP Family Medicine; Visit Provider Podiatrist Foot & Ankle Surgery | DX: L03.116 Cellulitis of left lower limb (principal); M21.41 Flat foot [pes planus] (acquired), right foot; M21.42 Flat foot [pes planus] (acquired), left foot; L60.3 Nail dystrophy; E11.42 Type 2 diabetes mellitus with diabetic polyneuropathy; I89.0 Lymphedema, not elsewhere classified; Z79.84 Long term (current) use of oral hypoglycemic drugs; Z79.4 Long term (current) use of insulin | CPT/HCPCS: 11721; 99213 ==

== ENCOUNTER → 2023-07-11 13:44 | Outpatient (BNVA) | payer MEDICARE, MEDICAID, SELFPAY | PROVIDERS: PCP Family Medicine; Visit Provider Thoracic Surgery (Cardiothoracic Vascular Surgery) | DX: I87.2 Venous insufficiency (chronic) (peripheral) (principal); E11.52 Type 2 diabetes mellitus with diabetic peripheral angiopathy with gangrene; L97.821 Non-pressure chronic ulcer of other part of left lower leg limited to breakdown of skin; L97.811 Non-pressure chronic ulcer of other part of right lower leg limited to breakdown of skin | CPT/HCPCS: 97597; 99213 ==

== ENCOUNTER 2023-07-15 08:26 | Outpatient (RCR) | payer MEDICARE, MEDICAID, SELFPAY | END 2023-07-31 23:59 | disposition home or self-care (01) | LOC: SPT 08:26 | PROVIDERS: PCP Family Medicine; Visit Provider Thoracic Surgery (Cardiothoracic Vascular Surgery) | DX: I89.0 Lymphedema, not elsewhere classified (principal) | CPT/HCPCS: 29581; 97140; 97161 ==

== ENCOUNTER → 2023-07-18 15:46 | Outpatient (BNVA) | payer MEDICARE, MEDICAID, SELFPAY | PROVIDERS: PCP Family Medicine; Visit Provider Thoracic Surgery (Cardiothoracic Vascular Surgery) | DX: I96 Gangrene, not elsewhere classified (principal); I87.2 Venous insufficiency (chronic) (peripheral); L97.821 Non-pressure chronic ulcer of other part of left lower leg limited to breakdown of skin; L97.811 Non-pressure chronic ulcer of other part of right lower leg limited to breakdown of skin | CPT/HCPCS: 97597 ==

== ENCOUNTER → 2023-08-03 14:48 | Outpatient (BNVA) | payer MEDICARE, MEDICAID, SELFPAY | PROVIDERS: PCP Family Medicine; Visit Provider Thoracic Surgery (Cardiothoracic Vascular Surgery) | DX: E11.52 Type 2 diabetes mellitus with diabetic peripheral angiopathy with gangrene (principal); I87.2 Venous insufficiency (chronic) (peripheral); E11.622 Type 2 diabetes mellitus with other skin ulcer; L97.821 Non-pressure chronic ulcer of other part of left lower leg limited to breakdown of skin; L97.811 Non-pressure chronic ulcer of other part of right lower leg limited to breakdown of skin | CPT/HCPCS: 97597 ==

== ENCOUNTER → 2023-08-08 07:51 | Outpatient (BNVA) | payer MEDICARE, MEDICAID, SELFPAY | PROVIDERS: PCP Family Medicine; Visit Provider Podiatrist Foot & Ankle Surgery | DX: M21.41 Flat foot [pes planus] (acquired), right foot (principal); M21.42 Flat foot [pes planus] (acquired), left foot; L60.3 Nail dystrophy; E11.42 Type 2 diabetes mellitus with diabetic polyneuropathy; I89.0 Lymphedema, not elsewhere classified; I87.2 Venous insufficiency (chronic) (peripheral); E11.52 Type 2 diabetes mellitus with diabetic peripheral angiopathy with gangrene; E11.622 Type 2 diabetes mellitus with other skin ulcer; L97.821 Non-pressure chronic ulcer of other part of left lower leg limited to breakdown of skin; L97.811 Non-pressure chronic ulcer of other part of right lower leg limited to breakdown of skin; Z79.4 Long term (current) use of insulin; Z79.84 Long term (current) use of oral hypoglycemic drugs | CPT/HCPCS: 97597; 99213 ==

== ENCOUNTER → 2023-08-15 11:09 | Outpatient (BNVA) | payer MEDICARE, MEDICAID, SELFPAY | PROVIDERS: PCP Family Medicine; Visit Provider Thoracic Surgery (Cardiothoracic Vascular Surgery) | DX: E11.52 Type 2 diabetes mellitus with diabetic peripheral angiopathy with gangrene (principal); E11.622 Type 2 diabetes mellitus with other skin ulcer; I87.2 Venous insufficiency (chronic) (peripheral); L97.821 Non-pressure chronic ulcer of other part of left lower leg limited to breakdown of skin; L97.811 Non-pressure chronic ulcer of other part of right lower leg limited to breakdown of skin | CPT/HCPCS: 11042; 97597 ==

== ENCOUNTER → 2023-08-29 15:03 | Outpatient (BNVA) | payer MEDICARE, MEDICAID, SELFPAY | PROVIDERS: PCP Family Medicine; Visit Provider Thoracic Surgery (Cardiothoracic Vascular Surgery) | DX: E11.52 Type 2 diabetes mellitus with diabetic peripheral angiopathy with gangrene (principal); E11.622 Type 2 diabetes mellitus with other skin ulcer; L97.821 Non-pressure chronic ulcer of other part of left lower leg limited to breakdown of skin; Z09 Encounter for follow-up examination after completed treatment for conditions other than malignant neoplasm | CPT/HCPCS: 97597; A6219 ==

== ENCOUNTER → 2023-09-06 13:52 | Outpatient (BNVA) | payer MEDICARE, MEDICAID, SELFPAY | PROVIDERS: PCP Family Medicine; Visit Provider Thoracic Surgery (Cardiothoracic Vascular Surgery) | DX: Z09 Encounter for follow-up examination after completed treatment for conditions other than malignant neoplasm (principal); Z87.2 Personal history of diseases of the skin and subcutaneous tissue | CPT/HCPCS: 99212 ==

== ENCOUNTER → 2023-11-21 09:19 | Outpatient (BNVA) | payer MEDICARE, MEDICAID, SELFPAY | PROVIDERS: PCP Family Medicine; Visit Provider Podiatrist Foot & Ankle Surgery | DX: L60.3 Nail dystrophy (principal); I89.0 Lymphedema, not elsewhere classified; E11.42 Type 2 diabetes mellitus with diabetic polyneuropathy; Z79.4 Long term (current) use of insulin; Z79.84 Long term (current) use of oral hypoglycemic drugs | CPT/HCPCS: 11721 ==

== ENCOUNTER → 2024-02-23 07:52 | Outpatient (BNVA) | payer MEDICARE, MEDICAID, SELFPAY | PROVIDERS: PCP Family Medicine; Visit Provider Podiatrist Foot & Ankle Surgery | DX: L60.3 Nail dystrophy (principal); I89.0 Lymphedema, not elsewhere classified; E11.42 Type 2 diabetes mellitus with diabetic polyneuropathy; Z79.84 Long term (current) use of oral hypoglycemic drugs; Z79.4 Long term (current) use of insulin | CPT/HCPCS: 11721 ==

== ENCOUNTER → 2024-03-15 09:37 | Outpatient (BNVA) | payer MEDICARE, MEDICAID, SELFPAY | PROVIDERS: PCP Family Medicine; Visit Provider Physician Assistant | DX: M25.561 Pain in right knee (principal); M25.562 Pain in left knee; M17.0 Bilateral primary osteoarthritis of knee | CPT/HCPCS: 20610; 73560; 73565; 99203; J3301 ==

== ENCOUNTER → 2024-04-06 08:29 | Outpatient (BNVA) | payer MEDICARE, MEDICAID, SELFPAY | PROVIDERS: PCP Family Medicine; Visit Provider Physician Assistant | DX: M54.16 Radiculopathy, lumbar region; M16.12 Unilateral primary osteoarthritis, left hip | CPT/HCPCS: 73502; 99213 ==

== ENCOUNTER → 2024-04-12 13:16 | Outpatient (BNVA) | payer MEDICARE, MEDICAID, SELFPAY | PROVIDERS: PCP Family Medicine; Visit Provider Orthopaedic Surgery | DX: M43.16 Spondylolisthesis, lumbar region (principal); M54.16 Radiculopathy, lumbar region | CPT/HCPCS: 72110; 99204 ==

== ENCOUNTER → 2024-05-10 13:57 | Outpatient (BNVA) | payer MEDICARE, MEDICAID, SELFPAY | PROVIDERS: PCP Family Medicine; Visit Provider Physician Assistant | DX: M25.511 Pain in right shoulder (principal); M19.011 Primary osteoarthritis, right shoulder; M75.41 Impingement syndrome of right shoulder | CPT/HCPCS: 73030; 99213 ==

== ENCOUNTER → 2024-05-17 08:00 | Outpatient (BNVA) | payer MEDICARE, MEDICAID, SELFPAY | PROVIDERS: PCP Family Medicine; Visit Provider Podiatrist Foot & Ankle Surgery | DX: I89.0 Lymphedema, not elsewhere classified (principal); M79.671 Pain in right foot; M79.672 Pain in left foot; E11.42 Type 2 diabetes mellitus with diabetic polyneuropathy; R03.0 Elevated blood-pressure reading, without diagnosis of hypertension; Z79.84 Long term (current) use of oral hypoglycemic drugs; Z79.4 Long term (current) use of insulin | CPT/HCPCS: 99213 ==

== ENCOUNTER 2024-05-24 09:20 | Outpatient (RCR) | payer MEDICARE, MEDICAID, SELFPAY | END 2024-05-31 23:59 | disposition home or self-care (01) | LOC: SPT 09:20 | PROVIDERS: PCP Family Medicine; Visit Provider Physician Assistant | DX: M25.511 Pain in right shoulder (principal); M75.41 Impingement syndrome of right shoulder | CPT/HCPCS: 97110; 97161 ==

== ENCOUNTER 2024-06-01 06:00 | Outpatient (RCR) | payer MEDICARE, MEDICAID, SELFPAY | END 2024-06-30 23:59 | disposition home or self-care (01) | LOC: SPT 06:00 | PROVIDERS: PCP Family Medicine; Visit Provider Physician Assistant | DX: M25.511 Pain in right shoulder (principal); M75.41 Impingement syndrome of right shoulder | CPT/HCPCS: 97110 ==

== ENCOUNTER → 2024-06-21 10:21 | Outpatient (BNVA) | payer MEDICARE, MEDICAID, SELFPAY | PROVIDERS: PCP Family Medicine; Visit Provider Physician Assistant | DX: M17.0 Bilateral primary osteoarthritis of knee (principal) | CPT/HCPCS: 20610; 99213; J3301 ==

== ENCOUNTER 2024-07-01 06:00 | Outpatient (RCR) | payer MEDICARE, MEDICAID, SELFPAY | END 2024-07-31 23:59 | disposition home or self-care (01) | LOC: SPT 06:00 | PROVIDERS: PCP Family Medicine; Visit Provider Physician Assistant | DX: M25.511 Pain in right shoulder (principal); M75.41 Impingement syndrome of right shoulder | CPT/HCPCS: 97110; 97164 ==

== ENCOUNTER → 2024-07-05 14:26 | Outpatient (BNVA) | payer MEDICARE, MEDICAID, SELFPAY | PROVIDERS: PCP Family Medicine; Visit Provider Physician Assistant | DX: M75.41 Impingement syndrome of right shoulder (principal); M19.011 Primary osteoarthritis, right shoulder | CPT/HCPCS: 99213 ==

== ENCOUNTER → 2024-08-16 08:15 | Outpatient (BNVA) | payer MEDICARE, MEDICAID, SELFPAY | PROVIDERS: PCP Family Medicine; Visit Provider Podiatrist Foot & Ankle Surgery | DX: E11.8 Type 2 diabetes mellitus with unspecified complications (principal); I89.0 Lymphedema, not elsewhere classified; E11.42 Type 2 diabetes mellitus with diabetic polyneuropathy; L97.512 Non-pressure chronic ulcer of other part of right foot with fat layer exposed; E11.621 Type 2 diabetes mellitus with foot ulcer; Z79.4 Long term (current) use of insulin; Z79.84 Long term (current) use of oral hypoglycemic drugs | CPT/HCPCS: 11042; 11721 ==

== ENCOUNTER → 2024-09-28 09:36 | Outpatient (BNVA) | payer MEDICARE, MEDICAID, SELFPAY | PROVIDERS: PCP Family Medicine; Visit Provider Physician Assistant | DX: M17.0 Bilateral primary osteoarthritis of knee (principal); Z71.89 Other specified counseling | CPT/HCPCS: 99213 ==

== ENCOUNTER → 2024-11-15 08:01 | Outpatient (BNVA) | payer MEDICARE, MEDICAID, SELFPAY | PROVIDERS: PCP Family Medicine; Visit Provider Podiatrist Foot & Ankle Surgery | DX: I89.0 Lymphedema, not elsewhere classified (principal); E11.42 Type 2 diabetes mellitus with diabetic polyneuropathy; L97.512 Non-pressure chronic ulcer of other part of right foot with fat layer exposed; E11.8 Type 2 diabetes mellitus with unspecified complications; E11.621 Type 2 diabetes mellitus with foot ulcer; Z79.4 Long term (current) use of insulin; Z79.84 Long term (current) use of oral hypoglycemic drugs | CPT/HCPCS: 99213 ==

== ENCOUNTER → 2024-12-12 12:35 | Outpatient (BNVA) | payer MEDICARE, MEDICAID, SELFPAY | PROVIDERS: PCP Family Medicine; Visit Provider Physician Assistant | DX: M17.0 Bilateral primary osteoarthritis of knee (principal) | CPT/HCPCS: 20610; 99213; J3301; J9999 ==

== ENCOUNTER → 2025-01-03 09:35 | Outpatient (BNVA) | payer MEDICARE, MEDICAID, SELFPAY | PROVIDERS: PCP Family Medicine; Visit Provider Podiatrist Foot & Ankle Surgery | DX: E11.8 Type 2 diabetes mellitus with unspecified complications (principal); I89.0 Lymphedema, not elsewhere classified; E11.42 Type 2 diabetes mellitus with diabetic polyneuropathy; Z79.84 Long term (current) use of oral hypoglycemic drugs | CPT/HCPCS: 99214 ==

== ENCOUNTER → 2025-03-15 10:08 | Outpatient (BNVA) | payer MEDICARE, MEDICAID, SELFPAY | PROVIDERS: PCP Family Medicine; Visit Provider Physician Assistant | DX: M17.0 Bilateral primary osteoarthritis of knee (principal) | CPT/HCPCS: 99213 ==

== ENCOUNTER 2025-03-27 12:17 | Emergency (ER) | payer MEDICARE, MEDICAID, SELFPAY ==
[2025-03-27 12:30] VITALS: BP 143/78; PULSE 59; RESP 20; TEMP 36.6; O2SAT 97
--- NOTE | 2025-03-27 13:44 | W.ED.BACK ---
HPI - Back Pain/Injury General: Chief Complaint: Back Pain/Injury Stated Complaint: Lower Back down to feet Pain Time Seen by Provider: 03/27/25 12:59 Source: patient and family Mode of arrival: wheelchair Limitations: no limitations History of Present Illness: Patient is a 74-year-old female who presents to the ED today with a complaint of left-sided lower back pain that radiates down into her left buttock and then all the way down to my toes . She states she has noticed symptoms over the past few days. She does report injuring her back over a decade ago and states since then she has not been able to lie on her left side due to pain in her back and hips. She states she has seen her primary care provider for this complaint as well as Dr. Novoa. They are wanting MRI imaging of her lumbar spine however they are having difficulty finding an MRI bariatric scanner. She has attempted MRI imaging here at the [facility] as well as an open MRI in [place] but was not able to comfortably tolerate this exam. She is not complaining of saddle anesthesia or bowel/bladder incontinence or retention. MD elicited complaint: back pain Pertinent past history: prior back pain Onset (ago): day(s) Timing: constant Severity: severe Similar Symptoms Previously: Yes Quality: burning and sharp Location: left lower back Radiation: buttocks and left leg below the knee Exacerbating factors: movement, walking and other (going from lying to sitting and sitting to standing) Relieving factors: none Associated symptoms: Reports no associated symptoms; Deny abdominal pain, dysuria, fever(s) or hematuria Work related injury: No Related Data Home Medications ?Medication ?Instructions ?Recorded ?Confirmed metformin 1,000 mg tablet 1,000 mg PO BID 01/29/21 03/15/25 rosuvastatin 20 mg tablet 20 mg PO BEDTIME 01/29/21 03/15/25 fluticasone propionate 50 1 spray intranasal BID 07/13/21 03/15/25 mcg/actuation nasal spray,suspension montelukast 10 mg tablet 10 mg PO BEDTIME 07/13/21 03/15/25 albuterol sulfate 90 mcg/actuation 2 puff inhalation BID PRN 09/16/21 03/15/25 aerosol inhaler Shortness Of Breath azelastine 137 mcg (0.1 %) nasal 2 spray intranasal BID 09/16/21 03/15/25 spray calcium 333 mg-vit D3 133 3 tab PO BEDTIME 09/16/21 03/15/25 unit-magnesium 133 mg-zinc 5 mg tablet (Rene Mag Zinc Plus D3) furosemide 20 mg tablet 20 mg PO DAILY PRN Edema 09/16/21 03/15/25 glipizide 5 mg tablet, extended 5 mg PO QAM 09/16/21 03/15/25 release 24 hr insulin degludec 200 unit/mL (3 64 unit SUBCUT QAM 09/16/21 03/15/25 mL) subcutaneous pen (Tresiba FlexTouch U-200 insulin) levothyroxine 100 mcg tablet 100 mcg PO .MON THROUGH Tue09/16/21 03/15/25 levothyroxine 125 mcg tablet 125 mcg PO .ON SAT AND SUN 09/16/21 03/15/25 linagliptin 5 mg tablet (Tradjenta) 5 mg PO BEDTIME 09/16/21 03/15/25 lisinopril 20 mg tablet 20 mg PO QAM 09/16/21 03/15/25 Held on 09/17/21. Instructions: Resume on 09/28/21. mirabegron 25 mg tablet,extended 25 mg PO QAM 09/16/21 03/15/25 release 24 hr (Myrbetriq) triamcinolone acetonide 0.1 % 1 applic topical BID PRN UNKNOWN 09/16/21 03/15/25 topical cream betamethasone valerate 0.1 % 1 applic topical DAILY PRN 05/10/24 03/15/25 topical cream calcipotriene 0.005 % scalp 1 applic topical DAILY 05/10/24 03/15/25 solution fluorouracil 5 % topical cream 1 applic topical BID 05/10/24 03/15/25 Previous Rx's ?Medication ?Instructions ?Recorded diabetic shoes with 3 molded #1 ea 07/13/21 inserts apixaban 5 mg tablet (Eliquis) 5 mg PO BID #90 tabs 09/17/21 benzonatate 200 mg capsule 200 mg PO BID PRN cough #60 caps 09/17/21 dextromethorphan-guaifenesin 5 10 ml PO Q4H PRN cough #237 mL 09/17/21 mg-100 mg/5 mL oral liquid (Robitussin Cough-Chest Congestion DM) metoprolol tartrate 25 mg tablet 12.5 mg (1/2 x 25 mg) PO 09/17/21 BID@0900,2100 #180 tabs diazepam 5 mg tablet 5 mg PO BID PRN anxiety #2 tabs 04/12/24 cephalexin 500 mg capsule 500 mg PO BID #14 caps 08/31/24 mupirocin 2 % topical ointment 1 applic topical TID #22 grams 08/31/24 cyclobenzaprine 10 mg tablet 10 mg PO TID PRN muscle spasm 7 12/18/24 days #21 tabs gabapentin 100 mg capsule 100 mg PO TID 3 months #270 caps 01/03/25 methocarbamol 500 mg tablet 500 mg PO Q8H #20 tabs 03/27/25 methylprednisolone 4 mg tablets in See Rx Instructions PO .COMPLEX 03/27/25 a dose pack (Medrol (Tristan)) #21 ea Allergies Allergy/AdvReac Type Severity Reaction Status Date / Time No Known Allergies Allergy Verified 03/15/25 10:09 Review of Systems Const: Denies: fever(s) GI: Denies: abdominal pain : Denies: flank pain, dysuria or hematuria Musc: Reports: back pain and extremity swelling (chronic lymphedema); Denies: neck pain, extremity pain, joint pain, joint swelling or joint redness Skin/Breast: Denies: rash Neuro: Denies: headache(s), numbness in extremities, weakness in extremities or sensory changes PFSH ED PFSH: Medical History Atrial fibrillation Pneumonia Diabetes Hyperlipidemia Essential (primary) hypertension Surgical History History of hernia surgery History of tubal ligation History of tonsillectomy History of appendectomy H/O: hysterectomy Family History Other CAD (coronary artery disease) Social History Smoking and tobacco/nicotine status: never used tobacco/nicotine Alcohol intake: never Physical Exam Const: COMMON NORMALS: no acute distress, patient oriented x3, no limitations, alert and well nourished GENERAL APPEARANCE: cooperative NUTRITIONAL APPEARANCE: obese morbidly obese (BMI of 58.5) ORIENTATION/CONSCIOUSNESS: Yes awake, Yes oriented to person, Yes oriented to place and Yes oriented to time Back/Pelvis: COMMON NORMALS: thoracic and lumbar spine normal to inspection and no thoracic nor lumbar tenderness LUMBAR SPINE/LOWER BACK: No lumbar spinal tenderness, No paraspinal muscle spasm and No mass present PELVIS: Yes sciatic notch tenderness on the left SACROILIAC JOINTS: Yes SI joint(s) abnormal SI joint details: tender to palpation (left) SACRUM: no tenderness COCCYX: no tenderness Extremity: NARRATIVE EXTREMITY EXAM: chronic bilateral lymphedema with wraps GENERAL: Yes normal exam except as noted Neuro: COMMON NORMALS: patient oriented x3, moves all extremities, no focal motor deficits and no sensory deficits noted SENSORIUM/ORIENTATION: Yes alert, Yes oriented to person, Yes oriented to place and Yes oriented to time MOTOR EXAM: 5/5 motor strength present throughout Course Vital Signs: Vital signs: Vital Signs Temperature 97.9 F 03/27/25 12:30 Pulse Rate 98 03/27/25 14:03 Respiratory Rate 18 03/27/25 14:03 Blood Pressure 142/78 03/27/25 14:03 Pulse Oximetry 97 03/27/25 14:03 Oxygen Delivery Me thod Room Air 03/27/25 12:30 MDM - Back Pain/Injury Medical Decision Making Patient's symptoms consistent with a left-sided sciatica. Contacted MRI team here who was unaware of location of closest bariatric MRI scanner. Recommend she continue to work with PCP regarding this. She did not seem open to surgery admitting that she would be very high risk given her comorbidities-I agree. She has tried PT in the past with no relief. She did not really seem open regarding pain management but family would like to see her to see them to see if they had any further suggestions in treating her pain non-operatively. They will speak to PCP regarding a referral. From an emergency standpoint I am limited in what I am going to be able to provide for patient today. XR/CT imaging would be of low yield and unlikely to change any form of management. She is agreeable to try steroids/muscle relaxers. States she cannot take NSAIDS and does not want controlled pain medication. Differential Diagnosis Likely lumbar radiculopathy, sciatica and strain of lumbar region Medical Records I reviewed the patient's medical records. No radiology studies performed this visit Discharge Plan Discharge Patient Disposition: Home Clinical Impression: Acute left-sided back pain with sciatica Condition: Stable Prescriptions: New methocarbamol 500 mg tablet 500 mg PO Q8H Qty: 20 0RF methylprednisolone [Medrol (Tristan)] 4 mg tablets,dose pack See Rx Instructions .ROUTE .COMPLEX Qty: 21 0RF Rx Instructions: orally per package directions No Action metformin 1,000 mg tablet 1,000 mg PO BID rosuvastatin 20 mg tablet 20 mg PO BEDTIME montelukast 10 mg tablet 10 mg PO BEDTIME fluticasone propionate 50 mcg/actuation spray,suspension 1 spray intranasal BID Rx Instructions: administer into each nostril (DME) diabetic shoes with 3 molded inserts See Rx Instructions .Route .MEDSUPPLY Qty: 1 0RF Rx Instructions: As directed diazepam 5 mg tablet 5 mg PO BID PRN (Reason: anxiety) Qty: 2 0RF Rx Instructions: 1st tab 1 1/2 hour prior to MRI. 2 tab just prior to MRI fluorouracil 5 % cream 1 applic topical BID betamethasone valerate 0.1 % cream 1 applic topical DAILY PRN calcipotriene 0.005 % solution 1 applic topical DAILY Rx Instructions: rub in gently and completely gabapentin 100 mg capsule 100 mg PO TID 90 Days Qty: 270 1RF mupirocin 2 % ointment 1 applic topical TID Qty: 22 2RF Rx Instructions: apply to wound TID and as needed with dressing changes, cover with band-aid cephalexin 500 mg capsule 500 mg PO BID Qty: 14 0RF cyclobenzaprine 10 mg tablet 10 mg PO TID PRN (Reason: muscle spasm) 7 Days Qty: 21 1RF lisinopril 20 mg tablet 20 mg PO QAM glipizide 5 mg tablet extended release 24hr 5 mg PO QAM triamcinolone acetonide 0.1 % cream 1 applic TOPICAL BID PRN (Reason: UNKNOWN) levothyroxine 100 mcg tablet 100 mcg PO .MON THROUGH FRI levothyroxine 125 mcg tablet 125 mcg PO .ON SAT AND SUN furosemide 20 mg tablet 20 mg PO DAILY PRN (Reason: Edema) azelastine 137 mcg (0.1 %) aerosol,spray 2 spray INTRANASAL BID albuterol sulfate 90 mcg/actuation HFA aerosol inhaler 2 puff INHALATION BID PRN (Reason: Shortness Of Breath) Tradjenta 5 mg tablet 5 mg PO BEDTIME Rene Mag Zinc Plus D3 333 mg-133 unit -133 mg-5 mg Tablet 3 tab PO BEDTIME Myrbetriq 25 mg tablet extended release 24 hr 25 mg PO QAM Tresiba FlexTouch U-200 200 unit/mL (3 mL) insulin pen 64 unit SUBCUT QAM benzonatate 200 mg capsule 200 mg PO BID PRN (Reason: cough) Qty: 60 0RF Robitussin Cough-Chest Ryan DM 5-100 mg/5 mL liquid 10 ml PO Q4H PRN (Reason: cough) Qty: 237 0RF Eliquis 5 mg tablet 5 mg PO BID Qty: 90 0RF metoprolol tartrate 25 mg Tablet 12.5 mg PO BID@0900,2100 Qty: 180 0RF Discharge Orders: Discharge ED (Routine); Ordered 03/27/25 Ordered By: Jael Pearson Referrals: Rm Cabral MD [Primary Care Provider, Family Practice] Patient Instructions: Sciatica (ED), Patient Portal & Janine Instructions, Sciatica Activity Restrictions/Additional Instructions: As we discussed, please follow-up with your primary care provider for further evaluation if medications are not helpful in treating discomfort. I did try to reach out to our MRI team here at the hospital and they did not have any further suggestions on location of a bariatric MRI scanner. We also discussed speaking to Dr. Cabral regarding whether he thought a referral to pain management could help with your discomfort. Print Language: Bolivian Coding Level of Care Code ED Flexo Operator for Maurilio Cao
[2025-03-27 14:03] VITALS: BP 142/78; PULSE 98; RESP 18; O2SAT 97
== END 2025-03-27 14:04 | disposition home or self-care (01) ==
PROVIDERS: Emergency Provider Physician Assistant; PCP Family Medicine
DX: M54.32 Sciatica, left side (principal); M54.50 Low back pain, unspecified; Z79.84 Long term (current) use of oral hypoglycemic drugs; Z79.01 Long term (current) use of anticoagulants; E11.9 Type 2 diabetes mellitus without complications; E78.5 Hyperlipidemia, unspecified; I10 Essential (primary) hypertension
CPT/HCPCS: 99283

== ENCOUNTER → 2025-04-11 08:05 | Outpatient (BNVA) | payer MEDICARE, MEDICAID, SELFPAY | PROVIDERS: PCP Family Medicine; Visit Provider Podiatrist Foot & Ankle Surgery | DX: E11.42 Type 2 diabetes mellitus with diabetic polyneuropathy (principal); L60.3 Nail dystrophy; I89.0 Lymphedema, not elsewhere classified; Z79.4 Long term (current) use of insulin; Z79.84 Long term (current) use of oral hypoglycemic drugs | CPT/HCPCS: 11721 ==

== ENCOUNTER → 2025-07-11 07:47 | Outpatient (BNVA) | payer MEDICARE, MEDICAID, SELFPAY | PROVIDERS: PCP Family Medicine; Visit Provider Podiatrist Foot & Ankle Surgery | DX: E11.42 Type 2 diabetes mellitus with diabetic polyneuropathy (principal); L60.3 Nail dystrophy; E11.8 Type 2 diabetes mellitus with unspecified complications; I89.0 Lymphedema, not elsewhere classified; Z79.4 Long term (current) use of insulin; Z79.84 Long term (current) use of oral hypoglycemic drugs | CPT/HCPCS: 11721 ==

== ENCOUNTER 2025-07-13 21:37 | Emergency (ER) | payer MEDICARE, MEDICAID, SELFPAY ==
[2025-07-13 21:39] VITALS: BP 145/64; PULSE 72; RESP 18; TEMP 36.4; O2SAT 99; BMI 58.3
--- OUTSIDE RECORDS SUMMARY | 2025-07-13 21:43 | XMS_ITS | Continuity of Care Document ---
Author Organization BUNNY Waddell [facility] Sujata Haines, [facility] ([facility]) Address [address] [place] [address] Care Team Providers Care Analytical Engineer Name Role Phone CABRAL, PRATEEK Primary Care Provider [phone] Assessment No assessment recorded. Plan of Treatment Reminders Order Date Submit Date Provider Last Modified By Organization Details Last Modified Time Details Appointments None recorded. Lab hemoglobin A1C/hemoglo bin total, QN, blood 2024 025 [facility], [address], [address], [place], [address], 5 11:52:01 microalbumi n/creatinin e, mass ratio, urine 2024 025 [facility], [address], [address] [place], [address], 5 06:12:27 CMP, serum or plasma 2024 025 [facility], [address], [address], [place], [address], 5 12:21:53 CBC 2024 025 [facility], [address], [address], [place], [address], 11:50:56 PTH (parathyroi d hormone), intact, serum or plasma 2024 025 [facility], [address], [address], [place], [address], 06:12:27 thyrotropin , QN, serum or plasma 2024 025 [facility], [address], [address], [place], [address], 12:22:04 Referral None recorded. Procedures None recorded. Surgeries None recorded. Imaging None recorded. Medication Orders None recorded. Patient TargetsNo targets recorded. Patient InstructionsNo instructions recorded. Reason for Referral None Reported. Results Created Date Observation Date Name Description Value Unit Range Abnormal Flag Note LastModifiedBy Organization Detail LastModifiedTime 04/19/2004/19/2025 CBC WBC 12.0 x10 4.0-10 .5 high Not Available [facility] [address], [place], [address], 04/19/2025 11:50:56 04/19/2004/19/2025 CBC RBC 3.95 x10 3.50-5 .50 Not Available [facility] [address] [facility] [address], [place], [address], 04/19/2025 11:50:56 04/19/2004/19/2025 CBC HGB 11.8 g/dL 12.0-1 6.0 low Not Available [facility] [address], [place], [address], 04/19/2025 11:50:56 04/19/2004/19/2025 CBC HCT 37.8 % 37.0-4 7.0 Not Available [facility] [address] [facility], [place], [address], 04/19/2025 11:50:56 04/19/20 25 04/19/2025 CBC MCV 95.7 fL 80.0-9 9.9 Not Available [facility] [address] [facility] [address], [place], [address], 04/19/2025 11:50:56 04/19/20 25 04/19/2025 CBC MCH 29.9 pg 27.0-3 2.0 Not Available [facility] [address] [facility] [address] [facility] [address], [place], [address], 04/19/2025 11:50:56 04/19/20 25 04/19/2025 CBC MCHC 31.2 g/dL 32.0-3 6.0 low Not Available [facility] [address] [facility] [address] [facility] [address], [place], [address], 04/19/2025 11:50:56 04/19/20 25 04/19/2025 CBC RDW 13.9 % 11.5-1 4.5 Not Available [facility] [address] [facility] [address] [facility] [address], [place], [address], 04/19/2025 11:50:56 04/19/20 25 04/19/2025 CBC plt 214.7 x10 140.0- 451.0 Not Available [facility] [address] [facility] [address] [facility] [address], [place], [address], 04/19/2025 11:50:56 04/19/20 25 04/19/2025 CBC lymphocytes % 23.4 % 20.0-5 0.0 Not Available [facility] [address] [facility] [address] [facility] [address], [place], [address], 04/19/2025 11:50:56 04/19/20 25 04/19/2025 CBC granulcytes % 68.7 % 30.0-7 0.0 Not Available [facility] [address] [facility], [place], [address], 04/19/2025 11:50:56 04/19/20 25 04/19/2025 CBC monocytes % 4.8 % 2.0-16 .0 Not Available [facility] [address] [facility] [facility] [address] [facility] [address], [place], [address], 04/19/2025 11:50:56 04/19/20 25 04/19/2025 CBC granulcytes# 8.2 x10 Not Kaur ilable [facility] [address] [facility] [facility] [address], [place], [address], 04/19/2025 11:50:56 04/19/20 25 04/19/2025 CBC lymphocytes # 2.8 x10 Not Available [facility] [address] [facility] [facility], [place], [address], 04/19/2025 11:50:56 04/19/20 25 04/19/2025 CBC monocytes # 0.6 x10 Not Avai lable [facility] [address] [facility] [facility] [address], [place], [address], 04/19/2025 11:50:56 04/19/20 25 04/19/2025 HBA1C hemaglobin A1C 6.4 4.2-6. 5 Not Available [facility] [address] [facility] [facility] 1, [place], [address], 04/19/2025 11:52:01 04/19/20 25 04/19/2025 CMP (FEMA LE) glucose 121.0 mg/dL 60.0-9 9.0 high Not Available [facility] [address] [facility] [facility] 1, [place], [address], 04/19/2025 12:21:53 04/19/20 25 04/19/2025 CMP (FEMA LE) BUN (blood urea nitrogen) 33.0 mg/dL 10.0-2 6.0 high Not Available [facility] [address] [facility] 1, [place], [address], 04/19/2025 12:21:53 04/19/20 25 04/19/2025 CMP (FEMA LE) creatinine (serum) 1.1 mg/dL 0.4-1. 5 Not Available [facility] [address] [facility] [address], [place], [address], 04/19/2025 12:21:53 04/19/20 25 04/19/2025 CMP (FEMA LE) BUN/creatini ne ratio 30.00 ratio Not Available [facility] [address] [facility] [address], [place], [address], 04/19/2025 12:21:53 04/19/20 25 04/19/2025 CMP (FEMA LE) eGFR calculated 51.2 Not Available [facility] [address] [facility] [address], [place], [address], 04/19/2025 12:21:53 04/19/20 25 04/19/2025 CMP (FEMA LE) total protein 6.7 g/dL 6.0-8. 5 Not Available [facility] [address] [address], [place], [address], 04/19/2025 12:21:53 04/19/20 25 04/19/2025 CMP (FEMA LE) total bilirubin 0.5 mg/dL 0.2-1. 3 Not Available [facility] [address] [facility] [address], [place], [address], 04/19/2025 12:21:53 04/19/20 25 04/19/2025 CMP (FEMA LE) albumin 4.1 g/dL 3.5-5. 5 Not Available [facility] [address] [facility] [address], [place], [address], 04/19/2025 12:21:53 04/19/20 25 04/19/2025 CMP (FEMA LE) globulin 2.6 calc Not Available [facility] [address] [facility] [address], [place], [address], 04/19/2025 12:21:53 04/19/20 25 04/19/2025 CMP (FEMA LE) AST (SGOT) 22.0 U/L 0.0-46 .0 Not Available [facility] [address] [facility] [address], [place], [address], 04/19/2025 12:21:53 04/19/20 25 04/19/2025 CMP (FEMA LE) altv (SGPT) 21.0 U/L 13.0-6 9.0 normal Not Available [facility] [address] [facility] [address], [place], [address], 04/19/2025 12:21:53 04/19/20 25 04/19/2025 CMP (FEMA LE) A/G ratio 1.6 ratio Not Available [facility] [address] [facility] [address], [place], [address], 04/19/2025 12:21:53 04/19/20 25 04/19/2025 CMP (FEMA LE) ALP phos 116.0 U/L 30.0-1 40.0 normal Not Available [facility] [address] [facility] [address], [place], [address], 04/19/2025 12:21:53 04/19/2004/19/2025 CMP (FEMA LE) calcium 9.7 mg/dL 8.4-10 .5 Not Available [facility] [address] [facility], [place], [address], 04/19/2025 12:21:53 04/19/20 25 04/19/2025 CMP (FEMA LE) sodium 141.0 mmol/ L 136.0- 145.0 Not Available [facility] [address] [facility], [place], [address], 04/19/2025 12:21:53 04/19/20 25 04/19/2025 CMP (FEMA LE) potassium 4.4 mmol/ L 3.5-5. 1 Not Available [facility] [address] [facility], [place], [address], 04/19/2025 12:21:53 04/19/2004/19/2025 CMP (FEMA LE) chloride 108.0 mmol/ L 98.0-1 10.0 normal Not Available [facility] [address] [facility] [address], [place], [address], 04/19/2025 12:21:53 04/19/20 25 04/19/2025 CMP (FEMA LE) C02 25.0 mmol/ L 22.0-3 1.0 Not Available [facility] [address] [facility] [address], [place], [address], 04/19/2025 12:21:53 04/19/20 25 04/19/2025 CMP (FEMA LE) anion gap 8.0 calc Not Available [facility] [address] [facility] [address], [place], [address], 04/19/2025 12:21:53 04/19/20 25 04/19/2025 CMP (FEMA LE) osmolality 299.1 calc Not Available [facility] [address] [facility], [place], [address], 04/19/2025 12:21:53 04/19/20 25 04/19/2025 TSH TSH 1.41 uIU/m L 0.49-3 .82 Not Available [facility] [address] [facility] [address], [place], [address], 04/19/2025 12:22:04 04/19/2004/20/2025 ALBUM IN, RANDO M URINE W/CRE ATINI NE creatinine, random urine 72 mg/dL 20-275 normal Not Available [facility] [address] [place], [address], 04/20/2025 06:12:26 04/19/2004/20/2025 ALBUM IN, RANDO M URINE W/CRE ATINI NE albumin, urine 5.9 mg/dL see note: normal Refer ence Range : Refer ence Range Not estab lishe d Not Available [address] , [place], [address], 04/20/2025 06:12:26 04/19/2004/20/2025 ALBUM IN, RANDO M URINE W/CRE ATINI NE albumin/crea tinine ratio, random urine 82 mg/g_ creat <30 high The ADA defin es abnor malit ies in album in excre tion as follo ws: Album inuri a Categ ory Resul t (mg/g creat inine ) Lucy l to Mildl y incre ased <30 Moder ately incre ased 30-29 9 Sever gauri incre ased > OR = 300 The ADA recom mends that at least two of three speci mens colle cted withi n a 3-6 month perio d be abnor mal befor e consi eyal g a patie nt to be withi n a diagn ostic categ ory. Not Available [facility] [address] [place], [address], 04/20/2025 06:12:26 04/19/2004/20/2025 PTH, INTAC T WITHO UT CALCI UM parathyroid hormone, intact 22 pg/mL 16-77 normal Inter preti ve Guide Intac t PTH Calci um ----- ----- ----- --- ----- ----- ----- -- Lucy l Parat hyroi d Lucy l Lucy l Hypop noemy yroid ism Low or Low Lucy l Low Hyper parat hyroi dism Prima ry Lucy l or High High Secon jonathan High Lucy l or Low Terti martha High High Non-P noemy yroid Hyper calce dustin Low or Low Lucy l High Not Available [facility] [address] [place], [address], 04/20/2025 06:12:27 04/29/20 25 12/13/2021 XR, chest , 2 view No observ ation record ed. [email or web address] Not Available 04/30 11:59:35 04/29/20 25 03/15/2024 XR, knee No observ ation record ed. [email or web address] Not Available 04/30 12:45:26 04/29/20 25 2024 XR, hip + pelvi s, bilat eral No observ ation record ed. [email or web address] Not Available 04/30 12:47:16 04/29/20 25 05/10/2024 XR, lumbo sacra l spine No observ ation record ed. [email or web address] Not Available 04/30 12:49:32 04/29/20 25 03/04/2021 imagi ng/di agnos tic resul t No observ ation record ed. [email or web address] Not Available 04/30 12:52:06 05/30/20 25 05/30/2025 CT, lumba r spine , w/o contr ast No observ ation record ed. [facility] [address] [facility], [place], [address], 05/31/2025 12:14:48 Result Notes None recorded. Problems Name Problem SNOMED Code Status Onset Date Resolution Date Notes Provider Name and Address Organization Details Recorded Time Valeri 415626613 Active 2021 RIANNA buckner [place] - [facility] 10:13:09 Hyperlipi demia 70079061 Active 2021 RIANNA PINEDA null, [facility] 4 10:12:19 Neuropath y due to diabetes mellitus 885817787 Active 2022 RIANNA PINEDA null, [facility] 4 10:12:47 Atrial fibrillat ion 53370394 Active 2022 RIANNA buckner, [facility] 4 10:11:21 Periphera l vascular disease 684935665 Active 2022 RIANNA buckner, [facility] 4 10:12:55 Hypothyro idism 56761029 Active 2022 RIANNA buckner, [facility] 4 10:12:25 Essential hypertens ion 57930801 Active 2022 RIANNA buckner, [facility] 4 10:12:08 Chronic respirato ry failure 24232342 Active 2023 RIANNA buckner, [facility] 5 08:53:36 Abnormal gait 23418387 Active 2023 RIANNA buckner, [facility] 5 08:53:01 Obstructi ve sleep apnea syndrome 18918677 Active 2023 RIANNA buckner, [facility] 4 10:26:23 Non-alcoh olic fatty liver 762146530 Active 2023 RIANNA buckner, [facility] 5 08:53:36 Squamous cell carcinoma of skin 503547241 Completed 202310/29/2024 Kanika Anderson null, [facility] 5 23:11:35 Actinic keratosis 121159211 Active 2023 Kanika Monica null, [facility] 5 23:11:29 Chronic kidney disease stage 3 due to type 2 diabetes mellitus 463714090104 Active 2023 RIANNA PINEDA null, [facility] 5 08:53:36 Type 2 diabetes mellitus 33651365 Active 2024 RIANNA PINEDA null, [facility] 5 15:24:58 Morbid obesity 974437010 Active 2024 RIANNA PINEDA null, [facility] 5 08:53:36 Chronic kidney disease stage 3A 305446718 Active 2024 RIANNA PINEDA null, [facility] 5 08:53:36 Bilateral sciatica 547841780786 69993 Active 2024 Prateek Cabral MD [address] [place] [address], [address], [facility] 5 11:03:33 Bilateral arthritis of knees 828588166466 9108 Active 2024 RIANNA PINEDA null, [facility] 5 13:27:03 Lumbar spondylol isthesis 600466884642 102 Active 2024 RIANNA PINEDA null, [facility] 5 13:27:03 Severe obesity 594728360828 04 Active 2024 RIANNA PINEDA null, [facility] 5 13:27:03 Uncontrol led type 2 diabetes mellitus 253663399 Active 2024 [facility]EDA null, [facility] 13:27:03 Problem Notes None recorded. Procedures Surgical History Date Name Laterality Status Provider Name and Address Organization Details Recorded Time repair of umbilical hernia completed [facility]23 10:14:45 [facility] 09:57:35 appendectomy completed [facility]ikajosiane Anderson [facility] 10/29/2024 23:11:55 [facility]29[facility]2024 23:12:06 Imaging Results None recorded. Procedure Notes None recorded. Medical Equipment None Reported. Allergies No known drug allergies Medications Name Sig Start Date Stop Date Status Note LastModified by Organization Details LastModified Time cyclobenz aprine 10 mg tablet TAKE 1 TABLET BY MOUTH THREE TIMES DAILY NEEDED FOR MUSCLE SPASMS for 7 days active Not Available Not Available No t Available methocarb prince 500 mg tablet TAKE 1 TABLET BY MOUTH EVERY 8 HOURS active Not Available Not Available No t Available Colace 100 mg capsule as needed 10/25 completed 0; Recorded 06/28/20 22 10:46AM by Kanika Jean RN, Office Visit; Not Available Not Available Not Available doxycycli ne hyclate 100 mg capsule TAKE 1 CAPSULE BY MOUTH TWICE A DAY FOR 10 DAYS 10/04 completed Not Available Not Available Not Available cetirizin e 10 mg tablet 1 daily 2021 active Not Available Not Available Not Avai lable chlorzoxa zone 500 mg tablet TAKE 1/2 TABLET BY MOUTH 3 TIMES DAILY NEEDED FOR 7 DAYS. 12/28 completed Not Available Not Available Not Available lisinopri l 20 mg tablet TAKE 1 TABLET BY MOUTH EVERY DAY active Not Available Not Available No t Available prednison e 20 mg tablet TAKE 1 TABLET BY MOUTH EVERY DAY FOR 5 DAYS 04/12 completed Not Available Not Available Not Available fluoroura cil 5 % topical cream THIN LAYER TO ARMS & HANDS TWICE DAILY FOR 2 WEEKS FOR ACTINIC KERATOSI S WASH BETWEEN APPLICAT IONS active Not Available Not Available No t Available glipizide ER 5 mg tablet, extended release 24 hr TAKE 1 TABLET BY MOUTH EVERY DAY 06/05 completed Not Available Not Available Not Available triamcino lone acetonide 0.1 % topical cream APPLY TO LOWER LEGS 2 TIMES DAILY, THEN FOLLOW WITH VASELINE AND MINERAL OIL COMBINAT ION 04/12 completed Not Available Not Available Not Available levothyro xine 100 mcg tablet TAKE 1 CAPSULE BY MOUTH FOR FIVE DAYS PER WEEK 10/20 completed Not Available Not Available Not Available betametha sone valerate 0.1 % topical cream apply ONE gram TO THE legs TWICE DAILY NEEDED FOR psoriasi s flare active Not Available Not Available No t Available cephalexi n 500 mg capsule take 1 capsule BY MOUTH TWICE DAILY 10/25 completed Not Available Not Available Not Available metformin 1,000 mg tablet TAKE 1 TABLET BY MOUTH TWICE DAILY active Not Available Not Available No t Available levothyro xine 125 mcg tablet TAKE 1 TABLET BY MOUTH 3 DAYS PER WEEK 03/30 completed Not Available Not Available Not Available gabapenti n 300 mg capsule take 1 capsule BY MOUTH THREE TIMES DAILY active Not Available Not Available No t Available monteluka st 10 mg tablet TAKE 1 TABLET BY MOUTH EVERY DAY active Not Available Not Available No t Available mupirocin 2 % topical ointment apply TO wound THREE TIMES DAILY and NEEDED with dressing changes, cover with bandaid. active Not Available Not Available No t Available furosemid e 20 mg tablet TAKE 1 TABLET BY MOUTH EVERY DAY active Not Available Not Available No t Available gabapenti n 100 mg capsule take 1 capsule BY MOUTH THREE TIMES DAILY 04/26 completed Not Available Not Available Not Available azelastin e 137 mcg (0.1 %) nasal spray USE 2 SPRAYS TO EACH NOSTRIL TWO TIMES DAILY active Not Available Not Available No t Available calcipotr iene 0.005 % scalp solution APPLY 1 GRAM DAILY TO LEGS FOR PSORIASI S active Not Available Not Available No t Available methylpre dnisolone 4 mg tablets in a dose pack Take as directed on package for 6 days 04/26 completed Not Available Not Available Not Available albuterol sulfate HFA 90 mcg/actua tion aerosol inhaler INHALE 2 PUFFS BY MOUTH TWICE DAILY NEEDED active Not Available Not Available No t Available fluticaso ne propionat e 50 mcg/actua tion nasal spray,miah pension SPRAY 1 SPRAY IN NOSTRIL( S) TWICE DAILY active Not Available Not Available No t Available levothyro xine 112 mcg tablet TAKE 1 TABLET BY MOUTH EVERY DAY active Not Available Not Available No t Available rosuvasta tin 20 mg tablet TAKE 1 TABLET BY MOUTH EVERY DAY active Not Available Not Available No t Available metoprolo l tartrate 25 mg tablet take 1/2 tablet BY MOUTH TWICE DAILY active Not Available Not Available No t Available metronida zole 1 % topical gel APPLY TO AFFECTED AREA ONCE DAILY AFTER WASHING active Not Available Not Available No t Available metronida zole once daily after washing 03/10 completed 436; Recorded 06/14/20 22 8:03AM by Rianna Pineda LPN (Authori ramo through Prateek Cabral MD), Refill Request; Refill Quantity : 1; Applicat or; Not Available Not Available Not Available nystatin two times daily 03/10 completed appply to the affected areas twice daily; 436; Recorded 12/02/19 22 9:53AM by Rianna Pineda LPN (Authori ramo through Prateek Cabral MD), Annotati on/Adden dum; Refill Quantity : 60; Gram; Not Available Not Available Not Available furosemid e daily 03/10 completed DOC DM/ky; 436; Recorded 10/19/19 23 1:11PM by Rianna Pineda LPN (Authori ramo through Prateek Cabral MD), Refill Request; Refill Quantity : 90; Tablet; Not Available Not Available Not Available lisinopri l daily 03/10 completed 436; Recorded 02/24/20 22 9:22AM by Rianna Pineda LPN (Authori ramo through Prateek Cabral MD), Annotati on/Adden dum; Refill Quantity : 90; Tablet; Not Available Not Available Not Available azelastin e two times daily 03/10 completed vo AM/dh; 436; Recorded 07/12/20 22 7:39AM by Rianna Pineda LPN (Authori zed through Prateek Cabral MD), Refill Request; Refill Quantity : 1; Applicat or; Not Available Not Available Not Available metformin BID 03/10 completed vo AM/dh; 436; Recorded 07/12/20 22 7:39AM by Rianna Pineda LPN (Authori presleyd through Prateek Cabral MD), Refill Request; Refill Quantity : 180; Tablet; Not Available Not Available Not Available [facility] Levothyro xine Sodium three days per week 03/10 completed 100 mcg aod; 436; Recorded 10/19/19 23 1:11PM by Rianna Pineda LPN (Authori presleyd through Prateek Cabral MD), Refill Request; Refill Quantity : 40; Capsule; Not Available Not Available Not Available Glipizide XL daily 03/10 completed 436; Recorded 01/13/20 22 12:04PM by Rianna Pineda LPN (Authori presleyd through Prateek Cabral MD), Refill Request; Refill Quantity : 90; Tablet; Not Available Not Available Not Available diclofena c 1 % topical gel APPLY 2 GRAMS TO THE AFFECTED AREA(S) BY TOPICAL ROUTE 4 TIMES PER DAY active Not Available Not Available No t Available Tradjenta 5 mg tablet TAKE 1 TABLET BY MOUTH EVERY DAY 06/05 completed Not Available Not Available Not Available Myrbetriq 25 mg tablet,ex tended release TAKE 1 TABLET BY MOUTH EVERY DAY active Not Available Not Available No t Available Eliquis 5 mg tablet TAKE 1 TABLET BY MOUTH TWICE A DAY active Not Available Not Available No t Available Eliquis two times daily 03/10 completed 436; Recorded 04/30/20 22 2:10PM by Rianna Pineda LPN (Authori presleyd through Prateek Cabral MD), Refill Request; Refill Quantity : 180; Tablet; Not Available Not Available Not Available True Metrix Glucose Test Strip USE TO TEST TWICE DAILY active Not Available Not Available No t Available True Metrix Glucose Test Strip BID 03/10 completed 436; Recorded 04/30/20 22 2:10PM by Rianna Pineda LPN (Authori ramo through Prateek Cabral MD), Refill Request; Refill Quantity : 100; Each; Not Available Not Available Not Available Tresiba FlexTouch U-200 insulin 200 unit/mL (3 mL) subcutane ous pen inject 50 units SUBCUTAN EOUSLY EVERY DAY active Not Available Not Available No t Available TechLITE Pen Needle 31 gauge x 5/16 USE ONCE daily with tresiba 2024 active Not Available Not Available Not Avai lable TechLITE Pen Needle 31 gauge x 3/16 USE ONCE daily with tresiba active Not Available Not Available No t Available turmeric 10/04 completed Not Available Not Available Not Available Paxlovid 300 mg (150 mg x 2)-100 mg tablets in a dose pack USE DIRECTED ON PACKAGE DIRECTIO NS (TWICE DAILY FOR 5 DAYS) 04/12 completed Not Available Not Available Not Available Mounjaro 5 mg/0.5 mL subcutane ous pen injector inject 5mg SUBCUTAN EOUSLY ONCE weekly active Not Available Not Available No t Available Mounjaro 2.5 mg/0.5 mL subcutane ous pen injector inject 2.5mg SUBCUTAN EOUSLY EVERY week FOR 28 DAYS 06/25 completed Not Available Not Available Not Available Klayesta 100,000 unit/gram topical powder APPLY TO AFFECTED AREA TWICE A DAY active Not Available Not Available No t Available Vitals None Recorded Social History Question Answer Notes LastModified by [employer] ion Details LastModified Time Tobacco Smoking Status Never Smoker RIANNA PINEDA [facility] 01/06/2023 09:56:56 What Was The Date Of Your Most Recent Tobacco Screening? 04/26/2025 skinny Information not available 04/26/2025 Sex: Unknown Functional Status Question Answer Note LastModified by Organizat ion Details LastModified Time Do you use any illicit or recreational drugs? No Information not available 01/06/2023 Do you or have you ever used any other forms of tobacco or nicotine? No Information not available 10/05/2023 What is your level of alcohol consumption? None Information not available 01/06/2023 Do you or have you ever used any nicotine-free cigarettes, vape, or chewing tobacco? No [email or web address] Information not available 04/26/2025 Mental Status None recorded. Family History Relationship Description Onset Age of this Age Resolved Age Notes LastModified by Organization Details LastModified Time Mother Myocardial infarction [email or web address] Not available 03/2023 09:57:04 Father Coronary atherosclero sis [email or web address] Not available 01/06 09:57:12 Medical History No medical history recorded. Gynecological HistoryNo gynecological history recorded. Obstetrics History GPAL:G 0 P 0 0 0 0 Immunizations Vaccine Type Date Status Note Provider Nam e and Address Organization Details Recorded Time zoster live 3 completed Not Available [facility] 11:01:31 Influenza, split virus, trivalent, preservative 2 completed Not Available [facility] 06/07/2023 11:01:31 Tdap 7 completed Not Available [facility] 06/07/2023 11:01:31 Influenza, split virus, trivalent, preservative 1 completed Not Available [facility] 06/07/2023 11:01:31 Influenza, split virus, trivalent, preservative 8 completed Not Available [facility] 06/07/2023 11:01:31 Influenza, split virus, trivalent, preservative 7 completed Not Available [facility] 06/07/2023 11:01:31 Influenza, split virus, trivalent, preservative 1 completed Not Available [facility] 06/07/2023 11:01:31 Pneumococcal conjugate PCV 13 7 completed Not Available [facility] 06/07/2023 11:01:31 pneumococcal polysaccharide PPV23 8 completed Not Available [facility] 06/07/2023 11:01:31 pneumococcal polysaccharide PPV23 5 completed Not Available [facility] 06/07/2023 11:01:31 Influenza, adjuvanted, trivalent, PF 5 completed RIANNA buckner [facility] 06/05/2025 12:31:22 Influenza, high-dose, trivalent, PF 4 completed Not Available [facility] 06/05/2025 10:34:06 zoster recombinant 1 completed Kanika Anderson [facility], [facility] 12/28/2022 13:35:05 zoster recombinant 0 completed Kanika Monica [facility], [facility] 12/28/2022 13:35:05 Influenza, high-dose, quadrivalent, PF 2 completed Kanika Monica [facility] 12/28/2022 13:35:05 COVID-19 vaccine, vector-nr, rS-Ad26, PF, 0.5 mL 1 [facility] 12/28/2022 13:35:05 pneumococcal polysaccharide PPV23 [facility] 12/28/2022 13:35:05 Hib (PRP-T) 5 completed Kanikajosiane Mcdermottoch [facility], [facility] 12/28/2022 13:35:05 Influenza, adjuvanted, quadrivalent, PF 3 completed Kanika Monica [facility] 06/07/2023 12:54:31 Pneumococcal conjugate PCV20, polysaccharide [id number] conjugate, adjuvant, PF 3 completed Kanika Monica [facility] 06/07/2023 12:54:31 Past Encounters Encounter ID Performer Location Encounter Start Date Encounter Closed Date Diagnosis/Indication Diagnosis SNOMED-CT Code Diagnosis ICD10 Code Diagnosis IMO Codes Diagnosis Note [id number] Prateek Cabral MD [facility] ([facility]) [address] [place] [phone] 04/19/2025 10:04:59 04/22/2025 09:19:15 Essential hypertension 69338598 I10 Type 2 trenton betes mellitus 88269330 E11.69 1446051875 Chronic ki dney disease stage 3A 083151810 N18.31 Hypothyroidism 25660193 E03.9 Health Concerns Section Related Observation LastModified by Organization Detai ls LastModified Time None Recorded Concern Status LastModified by Organization Details LastModified Time None Recorded Payers Encounter Date Sequence Insurance Name Policy Number Policy Laguna Covered Member ID Laguna Member ID Guarantor Name 04/19/2025 1 [place] Roz Mann [id number] Roz Mann 04/19/2025 2 [place] Roz Mann [id number] Roz Mann OBGyn Episode No OBEpisode recorded.
--- OUTSIDE RECORDS SUMMARY | 2025-07-13 21:43 | XMS_ITS | Continuity of Care Document ---
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 Lab None recorded. Referral neurologica l surgeon referral 2024 [email or web address] 2 [facility], [address], [place], [address], 12:06:41 Procedures None recorded. Surgeries None recorded. Imaging None recorded. Medication Orders gabapentin 300 mg capsule 2024 [facility], [facility] [place], [address], 15:40:55 Mounjaro 5 mg/0.5 mL subcutaneou s pen injector 2024 025 [facility], [facility], [address], 15:40:54 Tresiba FlexTouch U-200 insulin 200 unit/mL (3 mL) subcutaneou s pen 2024 025 [facility] [place], [facility], [address], 15:40:55 Patient TargetsNo targets recorded. Patient InstructionsNo instructions recorded. Reason for Referral Neurological Surgeon Referra l for Spinal stenosis Referring Physician: Prateek Meyer, Family Medicine, Encounter Date: 06/05/2025 Results Created Date Observation Date Name Description Value Unit Range Abnormal Flag Note LastModifiedBy Organization Detail LastModifiedTime 05/30/2005/30/2025 CT, lumba r spine , w/o contr ast No observ ation record ed. [facility] [address] [place], [address], 05/31/2025 12:14:48 Result Notes None recorded. Problems Name Problem SNOMED Code Status Onset Date Resolution Date Notes Provider Name and Address Organization Details Recorded Time Rosacea 306906342 Active 2021 RIANNA buckner [facility] 4 10:13:09 Hyperlipi demia 42696665 Active 2021 RIANNA buckner [facility] 4 10:12:19 Neuropath y due to diabetes mellitus 154969868 Active 2022 RIANNA buckner [facility] 4 10:12:47 Atrial fibrillat ion 75273180 Active 2022 RIANNA buckner [facility] 4 10:11:21 Periphera l vascular disease 846394692 Active 2022 RIANNA buckner [facility] 4 10:12:55 Hypothyro idism 49477320 Active 2022 RIANNA buckner, [facility] 4 10:12:25 Essential hypertens ion 30700043 Active 2022 RIANNA buckner, [facility] 4 10:12:08 Chronic respirato ry failure 83199788 Active 2023 RIANNA PINEDA null, [facility] 5 08:53:36 Abnormal gait 59792345 Active 2023 RIANNA buckner, [facility] 5 08:53:01 Obstructi ve sleep apnea syndrome 79927891 Active 2023 RIANNA buckner, [facility] 4 10:26:23 Non-alcoh olic fatty liver 737196099 Active 2023 RIANNA buckner, [facility] 5 08:53:36 Squamous cell carcinoma of skin 116963959 Completed 202310/29/2024 Kanika buckner, [facility] 5 23:11:35 Actinic keratosis 357541214 Active 2023 Kanika buckner, [facility] 5 23:11:29 Chronic kidney disease stage 3 due to type 2 diabetes mellitus 132494512973 Active 2023 RIANNA buckner, [facility] 5 08:53:36 Type 2 diabetes mellitus 13728981 Active 2024 RIANNA buckner, [facility] 5 15:24:58 Morbid obesity 098920529 [facility] 08:53:36 Chronic kidney disease stage 3A 633235118 Active 2024 RIANNA PINEDA sita [facility] 5 08:53:36 Bilateral sciatica 086601561881 71237 Active 2024 Prateek Meyer MD [address] [place] [address], [phone], [facility] 11:03:33 Bilateral arthritis of knees 684493636388 9108 Active 2024 RIANNA MIRIAM buckner [facility] 13:27:03 Lumbar spondylol isthesis 495809846283 102 Active 2024 RIANNA buckner [facility] 13:27:03 Severe obesity 297271173828 04 Active 2024 RIANNA MIRIAM buckner [facility] 13:27:03 Uncontrol led type 2 diabetes mellitus 108887763 Active 2024 RIANNA MIRIAM buckner [facility] 13:27:03 Problem Notes None recorded. Procedures Surgical History Date Name Laterality Status Provider Name and Address Organization Details Recorded Time repair of umbilical hernia completed RIANNAYANNICK PINEDA [facility] 10/05/2023 10:14:45 hysterectomy completed [facility] PINEDA [facility] 01/06/2023 09:57:35 appendectomy completed [facility] 10/29/2024 23:11:55 tonsillectomy completed [facility] 10/29/2024 23:12:06 Imaging Results None recorded. Procedure [...] as needed 10/25 completed 0; Recorded 06/28/20 10:46AM by Kanika Jean RN, Office Visit; [...] Rianna Pineda LPN (Authori ramo through Prateek Meyer MD), Refill Request; Refill Quantity : 1; Applicat or; Not Available Not Available Not Available nystatin two times daily 03/10 completed appply to the affected areas twice daily; 436; Recorded 12/02/19 22 9:53AM by Rianna Pineda LPN (Authori zed through Prateek Meyer MD), Annotati on/Adden dum; Refill Quantity : 60; Gram; Not Available Not Available Not Available furosemid e daily 03/10 completed DOC DM/ky; 436; Recorded 10/19/19 23 1:11PM by Rianna Pineda LPN (Authori zed through Prateek Meyer MD), Refill Request; Refill Quantity : 90; Tablet; Not Available Not Available Not Available lisinopri l daily 03/10 completed 436; Recorded 02/24/20 22 9:22AM by Rianna Pineda LPN (Authori zed through Prateek Meyer MD), Annotati on/Adden dum; Refill Quantity : 90; Tablet; Not Available Not Available Not Available azelastin e two times daily 03/10 completed vo AM/dh; 436; Recorded 07/12/20 22 7:39AM by Rianna Pineda LPN (Authori zed through Prateek Meyer MD), Refill Request; Refill Quantity : 1; Applicat or; Not Available Not Available Not Available metformin BID 03/10 completed vo AM/dh; 436; Recorded 07/12/20 22 7:39AM by Rianna Pineda LPN (Authori zed through Prateek Meyer MD), Refill Request; Refill Quantity : 180; Tablet; Not Available Not Available Not Available [facility] Levothyro xine Sodium three days per week 03/10 completed 100 mcg aod; 436; Recorded 10/19/19 23 1:11PM by Rianna Pineda LPN (Authori zed through Prateek Meyer MD), Refill Request; Refill Quantity : 40; Capsule; Not Available Not Available Not Available Glipizide XL daily 03/10 completed 436; Recorded 01/13/20 22 12:04PM by Rianna Pineda LPN (Authori zed through Prateek Meyer MD), Refill Request; Refill Quantity : 90; [...] 22 2:10PM by Rianna Pineda LPN (Authori zed through Prateek Meyer MD), Refill Request; Refill Quantity : 180; Tablet; Not Available Not Available Not Available True Metrix Glucose Test Strip USE TO TEST TWICE DAILY active Not Available Not Available No t Available True Metrix Glucose Test Strip BID 03/10 completed 436; Recorded 04/30/20 22 2:10PM by Rianna Pineda LPN (Authori presleyd through Prateek Meyer MD), Refill Request; Refill Quantity : 100; [...] Available Not Available No t Available Vitals Date Recorded Body height Body temperature Heart rate Oxygen saturation Systolic And Diastolic Provider Name and Address Organization Details Last Updated DateTime 162.56 cm 98 [degF] 78 /min 98 % 146/84 mm[Hg] RIANNA PINEDA [facility] 10:46:06 Social History Question Answer Notes LastModified by Onfido Details LastModified Time Tobacco Smoking Status Never Smoker RIANNA PINEDA [facility] 01/06/2023 09:56:56 What Was The Date Of Your Most Recent Tobacco Screening? 04/26/2025 [email or web address] Information not available 04/26/2025 Sex: Unknown Functional Status Question Answer Note LastModified by Onfido Details LastModified Time Do you use any illicit or recreational drugs? No [email or web address] Information not available 01/06/2023 Do you or have you ever used any other forms of tobacco or nicotine? No [email or web address] Information not available 10/05/2023 What is your level of alcohol consumption? None [email or web address] Information not available 01/06/2023 Do you or have you ever used any nicotine-free cigarettes, vape, or chewing tobacco? No [email or web address] Information not available 04/26/2025 Mental Status None recorded. Family History Relationship Description Onset Age of this Age Resolved Age Notes LastModified by Organization Details LastModified Time Mother Myocardial infarction [email or web address] Not available 03/2023 09:57:04 Father Coronary atherosclero sis [email or web address] Not available 01/06 09:57:12 Medical History No medical history recorded. Gynecological HistoryNo gynecological history recorded. Obstetrics History GPAL:G 0 P 0 0 0 0 Immunizations Vaccine Type Date Status Note Provider Nam e and Address Organization Details Recorded Time zoster live 3 completed Not Available [facility] 06/07/2023 11:01:31 Influenza, split virus, trivalent, preservative 2 completed Not Available [facility] 06/07/2023 11:01:31 Tdap 7 completed Not Available [facility] 06/07/2023 11:01:31 Influenza, split virus, trivalent, preservative 1 completed Not Available [facility] 06/07/2023 11:01:31 Influenza, split virus, trivalent, preservative 8 completed Not Available [facility] 06/07/2023 11:01:31 Influenza, split virus, trivalent, preservative 7 completed Not Available [facility] 06/07/2023 11:01:31 Influenza, split virus, trivalent, preservative 1 completed Not Available [facility] 06/07/2023 11:01:31 Pneumococcal conjugate PCV 13 7 completed Not Available [facility] 06/07/2023 11:01:31 pneumococcal polysaccharide PPV23 8 completed Not Available [facility] 06/07/2023 11:01:31 pneumococcal polysaccharide PPV23 5 completed Not Available [facility] 06/07/2023 11:01:31 Influenza, adjuvanted, trivalent, PF 5 completed RIANNA buckner, [facility] 06/05/2025 12:31:22 Influenza, high-dose, trivalent, PF 4 completed Not Available [facility] 06/05/2025 10:34:06 zoster recombinant 1 completed Kanika buckner [facility] 12/28/2022 13:35:05 zoster recombinant 0 completed Kanika buckner [facility] 12/28/2022 13:35:05 Influenza, high-dose, quadrivalent, PF 2 completed [facility] 12/28/2022 13:35:05 COVID-19 vaccine, vector-nr, rS-Ad26, PF, 0.5 mL 1 completed [facility] 12/28/2022 13:35:05 pneumococcal polysaccharide PPV23 5 completed [facility] 12/28/2022 13:35:05 Hib (PRP-T) 5 completed [facility] 12/28/2022 13:35:05 Influenza, adjuvanted, quadrivalent, PF 3 completed [facility] 06/07/2023 12:54:31 Pneumococcal conjugate PCV20, polysaccharide [id number] conjugate, adjuvant, PF 3 completed [facility] 06/07/2023 12:54:31 Past Encounters Encounter ID Performer Location Encounter Start Date Encounter Closed Date Diagnosis/Indication Diagnosis SNOMED-CT Code Diagnosis ICD10 Code Diagnosis IMO Codes Diagnosis Note [id number] Prateek Meyer MD [facility] ([facility]) [address] [place] [phone] 06/05/2025 10:33:49 06/10/2025 09:42:19 Uncontrolled type 2 diabetes mellitus 878018841 E11.69 Spinal stenosis 29840548 M48.[address] Type 2 trenton betes mellitus 71193468 E11.69 Requires i nfluenza virus vaccination 467075928 Z23 9007593 Administra tion of influenza vaccine 91703955 Z23 Health Concerns Section Related Observation LastModified by Organization Detai ls LastModified Time None Recorded Concern Status LastModified by Organization Details LastModified Time None Recorded Payers Encounter Date Sequence Insurance Name Policy Number Policy [place] Covered Member ID Laguna Member ID Guarantor Name 06/05/2025 1 [place] Roz Mann [id number] Roz Mann 06/05/2025 2 [place] Roz Mann [id number] Roz Mann Notes Date Note Type Note Provider Name and Address Organization Details Recorded Time text/html DiabetesReported by PatientHPIFor associated symptoms, patient reportsnumbness of feetandparesthesiasbut reportsno confusion,no increased thirst,no increased appetite,no increased urination, andno blurred vision. For duration, patient reportschronic. For control, patient reportsusually well controlled,hemoglobin a1c has been less than 7, andhemoglobin a1c goal is less than 7. For compliance, patient reportscompliant with medications,compliant with follow-up visits, andcompliant with home glucose monitoring. For self care, patient reportsmonitoring glucose daily(98 111 124 110 81 101 109 108 97 99 129 138 89 95 90 135 116 131 103 124 109 113 88 119).Patient states that the first week pt did have diarrhea and upset stomach but has been good ever since that time. Patient is also reminded to d/c Thalia.ROS as noted in the HPI 1 month f/u Mounjaro started at last visit Patient would like to get a refill of her gabapentin. Prateek Meyer MD [address] [place] [address], [phone], [facility] 11:17:45 OBGyn Episode No OBEpisode recorded.
--- OUTSIDE RECORDS SUMMARY | 2025-07-13 21:43 | XMS_ITS | Data Portability ---
Author Organization [facility] Address [address] [address] Care Team Providers Care Guinea Pig Breeder Name Role Phone PRATEEK CABRAL Primary Care Provider Assessment Encounter Date Assessment Date Assessment LastModified by Organization Details LastModified Time 04/26/2025 04/26/2025 we discussed the risks and benefits of glp-1 medication at length. we discussed risks of nausea/gi effects, pancreatitis and how severe that can be, and medullary thyroid cancer. the patient has confirmed that they have weighted the risks vs the benefits and wishes to proceed with treatment. benefits include weight loss better glycemic control and reduced risk of dying of CV events. we discussed her options for her deteriorating knees and spine. we are finally going to be able to do glp/gip fortunately. it looks like coverage has improved. we discussed medication options risks and benefits surgical options risks and benefits. spinal injections could hep and provide less risk than surgery. [email or web address] Not available 04/26/2025 10:59:19 06/05/2025 06/05/2025 d/c tradjenta d/c glipizide [email or web address] Not available 06/05/2025 11:06:39 Plan of Treatment Reminders Order Date Submit Date Provider Last Modified By Organization Details Last Modified Time Details Appointments None recorded. Lab hemoglobi n A1C/hemog lobin total, QN, blood 2024 025 [facility], [address], [address], [place], [address], 5 11:52:01 microalbu min/creat inine, mass ratio, urine 2024 025 [facility], [address] [place] [address], [address], [place], [address], 5 06:12:27 CMP, serum or plasma 2024 025 [facility], [address], [address], [place], [address], 5 12:21:53 CBC 2024 025 [facility], [address], [address], [place], [address], 5 11:50:56 PTH (parathyr oid hormone), intact, serum or plasma 2024 025 [facility], [address] [place] [address] 248, [address], [place], [address], 5 06:12:27 thyrotrop in, QN, serum or plasma 2024 025 [facility], [address], [address], [place], [address], 5 12:22:04 CMP, serum or plasma 2024 025 [facility], [address], [address], [place], [address], 5 10:27:03 CBC 2024 025 [facility], [address], [address], [place], [address], 5 09:57:07 PTH (parathyr oid hormone), intact, serum or plasma 2024 025 [email or web address], [address], [place], [address], 11:49:00 thyrotrop in, QN, serum or plasma 2024 025 [facility], [address], [address], [place], [address], 10:26:56 lipid panel, blood 2024 025 [facility], [address], [address], [place], [address], 5 10:27:06 microalbu min/creat inine, mass ratio, urine 2024 025 [email or web address] [facility], [address] [address], [address] [place], [address], 11:49:00 hemoglobi n A1C/hemog lobin total, QN, blood 2024 025 [facility], [address], [address], [place], [address], 10:05:37 Referral neurologi massimo surgeon referral 2024 025 [email or web address] 2 [facility], [address], [address], [place], [address], 5 12:06:41 Procedures None recorded. Surgeries None recorded. Imaging MRI, lumbar spine, w/o contrast - Patient will need to be put in feet first for this. 2024 025 [facility], [address], [place], [address], 5 15:19:54 Medication Orders gabapenti n 300 mg capsule [address], [address], 15:40:55 Mounjaro 5 mg/0.5 mL subcutane ous pen injector [address], [address], 15:40:54 Tresiba FlexTouch U-200 insulin 200 unit/mL (3 mL) subcutane ous pen [address], [address], 15:40:55 Mounjaro 2.5 mg/0.5 mL subcutane ous pen injector 2024 025 [email or web address], [address], 13:47:57 Tresiba FlexTouch U-200 insulin 200 unit/mL (3 mL) subcutane ous pen 2024 025 [email or web address], [address], 10:52:02 Patient TargetsNo targets recorded. Patient InstructionsNo instructions recorded. Reason for Referral Neurological Surgeon Referra l for Spinal stenosis Referring Physician: Prateek Cabral, Family Medicine, Encounter Date: 06/05/2025 Results Created Date Observation Date Name Description Value Unit Range Abnormal Flag Note LastModifiedBy Organization Detail LastModifiedTime 10/11/1910/10/2024 CBC WBC 10.9 x10 4.0-10 .5 high Not Available [facility] [address], [place], [address], 10/10/2024 09:57:07 10/11/1910/10/2024 CBC RBC 3.92 x10 3.50-5 .50 Not Available [facility] [address], [place], [address], 10/10/2024 09:57:07 10/11/19 25 10/10/2024 CBC HGB 12.8 g/dL 12.0-1 6.0 Not Available [facility] [address], [place], [address], 10/10/2024 09:57:07 10/11/1910/10/2024 CBC HCT 36.8 % 37.0-4 7.0 low Not Available [facility] [address] [facility] 1, [place], [address], 10/10/2024 09:57:07 10/11/19 25 10/10/2024 CBC MCV 93.9 fL 80.0-9 9.9 Not Available [facility] [address] [facility] 1, [place], [address], 10/10/2024 09:57:07 10/11/1910/10/2024 CBC MCH 32.6 pg 27.0-3 2.0 high Not Available [facility] [address], [place], [address], 10/10/2024 09:57:07 10/11/19 25 10/10/2024 CBC MCHC 34.8 g/dL 32.0-3 6.0 Not Available [facility] [address], [place], [address], 10/10/2024 09:57:07 10/11/19 25 10/10/2024 CBC RDW 14.2 % 11.5-1 4.5 Not Available [facility] [address] [facility], [place], [address], 10/10/2024 09:57:07 10/11/1910/10/2024 CBC plt 175.6 x10 140.0- 451.0 Not Available [facility] [address] [facility] 1, [place], [address], 10/10/2024 09:57:07 10/11/19 25 10/10/2024 CBC lymphocytes % 27.0 % 20.0-5 0.0 Not Available [facility] [address] [facility] 1, [place], [address], 10/10/2024 09:57:07 10/11/19 25 10/10/2024 CBC granulcytes % 64.1 % 30.0-7 0.0 Not Available [facility] [address] [address], [place], [address], 10/10/2024 09:57:07 10/11/1910/10/2024 CBC monocytes % 5.6 % 2.0-16 .0 Not Available [facility] [address] [facility] 1, [place], [address], 10/10/2024 09:57:07 10/11/19 25 10/10/2024 CBC granulcytes# 7.0 x10 Not Kaur ilable [facility] [address] [facility] 1, [place], [address], 10/10/2024 09:57:07 10/11/1910/10/2024 CBC lymphocytes # 3.0 x10 Not Available [facility] [address] [facility] 1, [place], [address], 10/10/2024 09:57:07 10/11/19 25 10/10/2024 CBC monocytes # 0.6 x10 Not Avai lable [facility] [address] [facility], [place], [address], 10/10/2024 09:57:07 10/11/19 25 10/10/2024 HBA1C hemaglobin A1C 6.2 4.2-6. 5 Not Available [facility] [address] [facility] 1, [place], [address], 10/10/2024 10:05:37 10/11/19 25 10/10/2024 TSH TSH 3.22 uIU/m L 0.49-3 .82 Not Available [facility] [address] [facility] 1, [place], [address], 10/10/2024 10:26:56 10/11/19 25 10/10/2024 CMP (FEMA LE) glucose 90.0 mg/dL 60.0-9 9.0 Not Available [facility] [address] [facility] 1, [place], [address], 10/10/2024 10:27:03 10/11/19 25 10/10/2024 CMP (FEMA LE) BUN (blood urea nitrogen) 31.0 mg/dL 10.0-2 6.0 high Not Available [facility] [address] [address], [place], [address], 10/10/2024 10:27:03 10/11/19 25 10/10/2024 CMP (FEMA LE) creatinine (serum) 1.1 mg/dL 0.4-1. 5 Not Available [facility] [address] [address], [place], [address], 10/10/2024 10:27:03 10/11/19 25 10/10/2024 CMP (FEMA LE) BUN/creatini ne ratio 28.18 ratio Not Available [facility] [address] [address], [place], [address], 10/10/2024 10:27:03 10/11/19 25 10/10/2024 CMP (FEMA LE) eGFR calculated 51.3 Not Available [facility] [address] [facility] [address] [facility] 1, [place], [address], 10/10/2024 10:27:03 10/11/19 25 10/10/2024 CMP (FEMA LE) total protein 6.7 g/dL 6.0-8. 5 Not Available [facility] [address] [facility], [place], [address], 10/10/2024 10:27:03 10/11/19 25 10/10/2024 CMP (FEMA LE) total bilirubin 0.5 mg/dL 0.2-1. 3 Not Available [facility] [address] [facility], [place], [address], 10/10/2024 10:27:03 10/11/19 25 10/10/2024 CMP (FEMA LE) albumin 4.0 g/dL 3.5-5. 5 Not Available [facility] [address] [facility], [place], [address], 10/10/2024 10:27:03 10/11/19 25 10/10/2024 CMP (FEMA LE) globulin 2.7 calc Not Available [facility] [address] [facility] 1, [place], [address], 10/10/2024 10:27:03 10/11/19 25 10/10/2024 CMP (FEMA LE) AST (SGOT) 28.0 U/L 0.0-46 .0 Not Available [facility] [address] [facility], [place], [address], 10/10/2024 10:27:03 10/11/19 25 10/10/2024 CMP (FEMA LE) altv (SGPT) 21.0 U/L 13.0-6 9.0 normal Not Available [facility] [address] [facility] 1, [place], [address], 10/10/2024 10:27:03 10/11/19 25 10/10/2024 CMP (FEMA LE) A/G ratio 1.5 ratio Not Available [facility] [address] [facility] 1, [place], [address], 10/10/2024 10:27:03 10/11/19 25 10/10/2024 CMP (FEMA LE) ALP phos 161.0 U/L 30.0-1 40.0 abnormal Not Available [facility] [address] [facility] 1, [place], [address], 10/10/2024 10:27:03 10/11/19 25 10/10/2024 CMP (FEMA LE) calcium 9.6 mg/dL 8.4-10 .5 Not Available [facility] [address] [facility] 1, [place], [address], 10/10/2024 10:27:03 10/11/19 25 10/10/2024 CMP (FEMA LE) sodium 140.0 mmol/ L 136.0- 145.0 Not Available [facility] [address] [facility] 1, [place], [address], 10/10/2024 10:27:03 10/11/19 25 10/10/2024 CMP (FEMA LE) potassium 5.4 mmol/ L 3.5-5. 1 high Not Available [facility] [address] [facility] 1, [place], [address], 10/10/2024 10:27:03 10/11/19 25 10/10/2024 CMP (FEMA LE) chloride 110.0 mmol/ L 98.0-1 10.0 normal Not Available [facility] [address] [facility] 1, [place], [address], 10/10/2024 10:27:03 10/11/19 25 10/10/2024 CMP (FEMA LE) C02 20.0 mmol/ L 22.0-3 1.0 low Not Available [facility] [address] [facility] 1, [place], [address], 10/10/2024 10:27:03 10/11/19 25 10/10/2024 CMP (FEMA LE) anion gap 10.0 calc Not Available [facility] [address] [facility] 1, [place], [address], 10/10/2024 10:27:03 10/11/19 25 10/10/2024 CMP (FEMA LE) osmolality 294.8 calc Not Available [facility] [address] [facility] 1, [place], [address], 10/10/2024 10:27:03 10/11/19 25 10/10/2024 LIPID PROFI LE (FEMA LE) cholesterol 152.0 mg/dL 0.0-20 0.0 Not Available [facility] [address] [address], [place], [address], 10/10/2024 10:27:06 10/11/19 25 10/10/2024 LIPID PROFI LE (FEMA LE) trig 257.0 mg/dL 0.0-15 0.0 high Not Available [facility] [address] [facility] 1, [place], [address], 10/10/2024 10:27:06 10/11/19 25 10/10/2024 LIPID PROFI LE (FEMA LE) HDL - direct 45.0 mg/dL >40.0 Not Available [facility] [address] [address], [place], [address], 10/10/2024 10:27:06 10/11/19 25 10/10/2024 LIPID PROFI LE (FEMA LE) VLDL - direct 51.4 mg/dL Not Available [facility] [address] [facility] 1, [place], [address], 10/10/2024 10:27:06 10/11/19 25 10/10/2024 LIPID PROFI LE (FEMA LE) LDL - direct 55.6 mg/dL 0.0-13 0.0 Not Available [facility] [address] [facility] 1, [place], [address], 10/10/2024 10:27:06 10/19/19 25 10/19/2024 PTH, INTAC T WITHO UT CALCI UM parathyroid hormone, intact 33 pg/mL 16-77 normal Inter preti ve Guide [...] or Low Lucy l High Not Available [facility] [address] [place], [address], 10/19/2024 09:36:32 10/19/19 25 10/19/2024 ALBUM IN, RANDO M URINE W/CRE ATINI NE creatinine, random urine 38 mg/dL 20-275 normal Not Available [email or web address] [address] [place], [address], 10/19/2024 10:08:24 10/19/19 25 10/19/2024 ALBUM IN, RANDO M URINE W/CRE ATINI NE albumin, urine 3.0 mg/dL see note: normal Refer ence Range : Refer ence Range Not estab lishe d Not Available [facility] [address] [place], [address], 10/19/2024 10:08:24 10/19/19 25 10/19/2024 ALBUM IN, RANDO M URINE W/CRE ATINI NE albumin/crea tinine ratio, random urine 79 mg/g_ creat <30 high The ADA defin [...] a diagn ostic categ ory. Not Available [facility] [address] [place], [address], 10/19/2024 10:08:24 04/19/20 25 04/19/2025 CBC WBC 12.0 x10 4.0-10 .5 high Not Available [facility] [address] [facility], [place], [address], 04/19/2025 11:50:56 04/19/20 25 04/19/2025 CBC RBC 3.95 x10 3.50-5 .50 Not Available [facility] [address], [place], [address], 04/19/2025 11:50:56 04/19/20 25 04/19/2025 CBC HGB 11.8 g/dL 12.0-1 6.0 low Not Available [facility] [address] [facility] [address], [place], [address], 04/19/2025 11:50:56 04/19/20 25 04/19/2025 CBC HCT 37.8 % 37.0-4 7.0 Not Available [facility] [address] [facility] 1, [place], [address], 04/19/2025 11:50:56 04/19/20 25 04/19/2025 CBC MCV 95.7 fL 80.0-9 9.9 Not Available [facility] [address] [facility] [address] [facility] 1, [place], [address], 04/19/2025 11:50:56 04/19/20 25 04/19/2025 CBC MCH 29.9 pg 27.0-3 2.0 Not Available [facility] [address] [facility] [address] [facility] 1, [place], [address], 04/19/2025 11:50:56 04/19/20 25 04/19/2025 CBC MCHC 31.2 g/dL 32.0-3 6.0 low Not Available [facility] [address] [facility] [address] [facility] 1, [place], [address], 04/19/2025 11:50:56 04/19/20 25 04/19/2025 CBC RDW 13.9 % 11.5-1 4.5 Not Available [facility] [address] [facility] [address] [facility] 1, [place], [address], 04/19/2025 11:50:56 04/19/20 25 04/19/2025 CBC plt 214.7 x10 140.0- 451.0 Not Available [facility] [address] [facility] [address] [facility] 1, [place], [address], 04/19/2025 11:50:56 04/19/20 25 04/19/2025 CBC lymphocytes % 23.4 % 20.0-5 0.0 Not Available [facility] [address] [facility] [address] [facility] 1, [place], [address], 04/19/2025 11:50:56 04/19/20 25 04/19/2025 CBC granulcytes % 68.7 % 30.0-7 0.0 Not Available [facility] [address] [facility] [address] [facility] 1, [place], [address], 04/19/2025 11:50:56 04/19/20 25 04/19/2025 CBC monocytes % 4.8 % 2.0-16 .0 Not Available [facility] [address] [facility] [address] [facility] 1, [place], [address], 04/19/2025 11:50:56 04/19/20 25 04/19/2025 CBC granulcytes# 8.2 x10 Not Kaur ilable [facility] [address] [facility], [place], [address], 04/19/2025 11:50:56 04/19/20 25 04/19/2025 CBC lymphocytes # 2.8 x10 Not Available [facility] [address] [facility] 1, [place], [address], 04/19/2025 11:50:56 04/19/20 25 04/19/2025 CBC monocytes # 0.6 x10 Not Avai lable [facility] [address] [facility], [place], [address], 04/19/2025 11:50:56 04/19/20 25 04/19/2025 HBA1C hemaglobin A1C 6.4 4.2-6. 5 Not Available [facility] [address] [facility] 1, [place], [address], 04/19/2025 11:52:01 04/19/20 25 04/19/2025 CMP (FEMA LE) glucose 121.0 mg/dL 60.0-9 9.0 high Not Available [facility] [address] [facility] [address] [facility] 1, [place], [address], 04/19/2025 12:21:53 04/19/20 25 04/19/2025 CMP (FEMA LE) BUN (blood urea nitrogen) 33.0 mg/dL 10.0-2 6.0 high Not Available [facility] [address], [place], [address], 04/19/2025 12:21:53 04/19/20 25 04/19/2025 CMP (FEMA LE) creatinine (serum) 1.1 mg/dL 0.4-1. 5 Not Available [facility] [address] [facility] 1, [place], [address], 04/19/2025 12:21:53 04/19/20 25 04/19/2025 CMP (FEMA LE) BUN/creatini ne ratio 30.00 ratio Not Available [facility] [address] [facility], [place], [address], 04/19/2025 12:21:53 04/19/20 25 04/19/2025 CMP (FEMA LE) eGFR calculated 51.2 Not Available [facility] [address] [facility], [place], [address], 04/19/2025 12:21:53 04/19/20 25 04/19/2025 CMP (FEMA LE) total protein 6.7 g/dL 6.0-8. 5 Not Available [facility] [address] [facility] 1, [place], [address], 04/19/2025 12:21:53 04/19/20 25 04/19/2025 CMP (FEMA LE) total bilirubin 0.5 mg/dL 0.2-1. 3 Not Available [facility] [address] [facility] 1, [place], [address], 04/19/2025 12:21:53 04/19/20 25 04/19/2025 CMP (FEMA LE) albumin 4.1 g/dL 3.5-5. 5 Not Available [facility] [address] [facility] 1, [place], [address], 04/19/2025 12:21:53 04/19/20 25 04/19/2025 CMP (FEMA LE) globulin 2.6 calc Not Available [facility] [address] [facility] 1, [place], [address], 04/19/2025 12:21:53 04/19/20 25 04/19/2025 CMP (FEMA LE) AST (SGOT) 22.0 U/L 0.0-46 .0 Not Available [facility] [address] [facility] 1, [place], [address], 04/19/2025 12:21:53 04/19/20 25 04/19/2025 CMP (FEMA LE) altv (SGPT) 21.0 U/L 13.0-6 9.0 normal Not Available [facility] [address] [facility] 1, [place], [address], 04/19/2025 12:21:53 04/19/20 25 04/19/2025 CMP (FEMA LE) A/G ratio 1.6 ratio Not Available [facility] [address] [facility] 1, [place], [address], 04/19/2025 12:21:53 04/19/20 25 04/19/2025 CMP (FEMA LE) ALP phos 116.0 U/L 30.0-1 40.0 normal Not Available [facility] [address] [facility] 1, [place], [address], 04/19/2025 12:21:53 04/19/20 25 04/19/2025 CMP (FEMA LE) calcium 9.7 mg/dL 8.4-10 .5 Not Available [facility] [address] [facility] 1, [place], [address], 04/19/2025 12:21:53 04/19/20 25 04/19/2025 CMP (FEMA LE) sodium 141.0 mmol/ L 136.0- 145.0 Not Available [facility] [address] [facility] 1, [place], [address], 04/19/2025 12:21:53 04/19/20 25 04/19/2025 CMP (FEMA LE) potassium 4.4 mmol/ L 3.5-5. 1 Not Available [facility] [address] [facility] 1, [place], [address], 04/19/2025 12:21:53 04/19/20 25 04/19/2025 CMP (FEMA LE) chloride 108.0 mmol/ L 98.0-1 10.0 normal Not Available [facility] [address] [facility] 1, [place], [address], 04/19/2025 12:21:53 04/19/20 25 04/19/2025 CMP (FEMA LE) C02 25.0 mmol/ L 22.0-3 1.0 Not Available [facility] [address] [facility] 1, [place], [address], 04/19/2025 12:21:53 04/19/20 25 04/19/2025 CMP (FEMA LE) anion gap 8.0 calc Not Available [facility] [address] [facility] 1, [place], [address], 04/19/2025 12:21:53 04/19/20 25 04/19/2025 CMP (FEMA LE) osmolality 299.1 calc Not Available [facility] [address] [facility] 1, [place], [address], 04/19/2025 12:21:53 04/19/20 25 04/19/2025 TSH TSH 1.41 uIU/m L 0.49-3 .82 Not Available [facility] [address], [place], [address], 04/19/2025 12:22:04 04/19/20 25 04/20/2025 ALBUM IN, RANDO M URINE W/CRE ATINI NE creatinine, random urine 72 mg/dL 20-275 normal Not Available [address] [address] [place], [address], 04/20/2025 06:12:26 04/19/20 25 04/20/2025 ALBUM IN, RANDO M URINE W/CRE ATINI NE albumin, urine 5.9 mg/dL see note: normal Refer ence Range : Refer ence Range Not estab lishe d Not Available [facility] [address] [place], [address], 04/20/2025 06:12:26 04/19/20 25 04/20/2025 ALBUM IN, RANDO M URINE W/CRE ATINI [...] a diagn ostic categ ory. Not Available [facility] [address] [place], [address], 04/20/2025 06:12:26 04/19/20 25 04/20/2025 PTH, INTAC T WITHO UT CALCI UM [...] or Low Lucy l High Not Available [facility] [address] [place], [address], 04/20/2025 06:12:27 04/29/20 25 12/13/2021 XR, chest [...] contr ast No observ ation record ed. [facility] [address] [facility], [place], [address], 05/31/2025 12:14:48 Result Notes None recorded. Problems Name Problem SNOMED Code Status Onset Date Resolution Date Notes Provider Name and Address Organization Details Recorded Time Valeri 111736886 Active [address] [facility] 4 10:13:09 Hyperlipi demia 82218157 Active [address] [facility] 4 10:12:19 Neuropath y due to diabetes mellitus 040032258 Active [address] [facility] 4 10:12:47 Atrial fibrillat ion 88481714 Active [address] [facility] 4 10:11:21 Periphera l vascular disease 785844108 Active [address] [facility] 4 10:12:55 Hypothyro idism 35757189 Active [address] [facility] 4 10:12:25 Essential hypertens ion 87598943 Active [address] [facility] 4 10:12:08 Chronic respirato ry failure 60047026 Active [address] [facility] 5 08:53:36 Abnormal gait 35126971 Active [address] [facility] 5 08:53:01 Obstructi ve sleep apnea syndrome 13403819 Active [address] [facility] 4 10:26:23 Non-alcoh olic fatty liver 251311085 Active 2023 RIANNA buckner, [facility] 5 08:53:36 Squamous cell carcinoma of skin [id number] Completed 202310/29/2024 Kanika Monica null, [facility] 5 23:11:35 Actinic keratosis 849294534 Active 2023 Kanika Anderson null, [facility] 5 23:11:29 Chronic kidney disease stage 3 due to type 2 diabetes mellitus [id number] Active 2023 RIANNA buckner, [facility] 5 08:53:36 Type 2 diabetes mellitus 69790918 Active 2024 RIANNA buckner, [facility] 15:24:58 Morbid obesity 316703319 Active 2024 RIANNA PINEDA null, [facility] 5 08:53:36 Chronic kidney disease stage 3A 534327409 Active 2024 RIANNA PINEDA null, [facility] 5 08:53:36 Bilateral sciatica 880883823538 29132 Active 2024 Prateek Cabral MD [address] [place] [address], [phone] [place] [address], L.L[facility] 5 11:03:33 Bilateral arthritis of knees 511873224371 9108 Active 2024 RIANNA buckner, [facility] 5 13:27:03 Lumbar spondylol isthesis 274010499637 102 Active 2024 RIANNA buckner, [facility] 13:27:03 Severe obesity 275575074608 04 [facility] [place] [facility] 13:27:03 Uncontrol led type 2 diabetes mellitus 784221572 Active 2024 RIANNA PINEDA [facility], [place] 13:27:03 Problem Notes None recorded. Procedures Surgical History Date Name Laterality Status Provider Name and Address Organization Details Recorded Time repair of umbilical hernia completed [facility] PINEDA [facility], [place] 10/05/2023 10:14:45 hysterectomy completed [facility], [place] 01/06/2023 09:57:35 appendectomy completed [facility], [place] 10/29/2024 23:11:55 tonsillectomy completed [facility], [place] 10/29/2024 23:12:06 Imaging Results None recorded. Procedure [...] 22 8:03AM by Rianna Pineda LPN (Authori presleyd through Prateek Cabral MD), Refill Request; Refill Quantity : 1; Applicat or; Not Available Not Available Not Available nystatin two times daily 03/10 completed appply to the affected areas twice daily; 436; Recorded 12/02/19 22 9:53AM by Rianna Pineda LPN (Authorantonio ralph through Prateek Cabral MD), Annotati on/Adden dum; [...] 22 9:22AM by Rianna Pineda LPN (Authori presleyd through Prateek Cabral MD), Annotati on/Adden dum; [...] and Address Organization Details Last Updated DateTime 5 162.56 cm 97.3 [degF] 71 /min 94 % 132/72 mm[Hg] Kanika Anderson [facility], [place] 5 09:57:00 Date Recorded Body height Body temperature Heart rate Oxygen saturation Systolic And Diastolic Provider Name and Address Organization Details Last Updated DateTime 5 162.56 cm 97.2 [degF] 56 /min 99 % 136/64 mm[Hg] RIANNA PINEDA [facility] 5 10:17:18 Date Recorded Body height Body temperature Heart rate Oxygen saturation Systolic And Diastolic Provider Name and Address Organization Details Last Updated DateTime 5 162.56 cm 98 [degF] 78 /min 98 % 146/84 mm[Hg] RIANNA PINEDA [facility] 5 10:46:06 Social History Question Answer Notes LastModified by [employer] Details LastModified Time Tobacco Smoking Status Never Smoker RIANNA PINEDA [facility] 01/06/2023 09:56:56 What Was The Date Of Your Most Recent Tobacco Screening? 04/26/2025 [email or web address] Information not available 04/26/2025 Sex: Unknown Functional Status Question Answer Note LastModified by [employer] Details LastModified Time Do you use any illicit or recreational drugs? No [email or web address] Information not available 01/06/2023 Do you or have you ever used any other forms of tobacco or nicotine? No [email or web address] Information not available 10/05/2023 What is your level of alcohol consumption? None [email or web address] Information not available 01/06/2023 Do you or have you ever used any nicotine-free cigarettes, vape, or chewing tobacco? No [email or web address] Information not available 04/26/2025 Mental Status None recorded. Family History Relationship Description Onset Age of this Age Resolved Age Notes LastModified by Organization Details LastModified Time Mother Myocardial infarction [email or web address] Not available 03/2023 09:57:04 Father Coronary atherosclero sis [email or web address] Not available 01/06 09:57:12 Medical History No medical history recorded. Gynecological HistoryNo gynecological history recorded. Obstetrics History GPAL:G 0 P 0 0 0 0 Immunizations Vaccine Type Date Status Note Provider Nam e and Address Organization Details Recorded Time zoster live 3 completed Not Available [facility] 06/07/2023 11:01:31 Influenza, split virus, trivalent, preservative 2 completed Not Available [facility] 06/07/2023 11:01:31 Tdap 7 completed Not Available [facility] 06/07/2023 11:01:31 Influenza, split virus, trivalent, preservative 1 completed Not Available [facility] 06/07/2023 11:01:31 Influenza, split virus, trivalent, preservative 8 completed Not Available [facility] 06/07/2023 11:01:31 Influenza, split virus, trivalent, preservative 7 completed Not Available [facility] 06/07/2023 11:01:31 Influenza, split virus, trivalent, preservative 1 completed Not Available [facility] 06/07/2023 11:01:31 Pneumococcal conjugate PCV 13 7 completed Not Available [facility] 06/07/2023 11:01:31 pneumococcal polysaccharide PPV23 8 completed Not Available [facility] 06/07/2023 11:01:31 pneumococcal polysaccharide PPV23 5 completed Not Available [facility] 06/07/2023 11:01:31 Influenza, adjuvanted, trivalent, PF 5 completed RIANNA buckner, [facility] 06/05/2025 12:31:22 Influenza, high-dose, trivalent, PF 4 completed Not Available [facility] 06/05/2025 10:34:06 zoster recombinant 1 completed Kanika buckner, [facility] 12/28/2022 13:35:05 zoster recombinant 0 completed Kanika buckner, [facility] 12/28/2022 13:35:05 Influenza, high-dose, quadrivalent, PF 2 completed Kanika buckner, [facility] 12/28/2022 13:35:05 COVID-19 vaccine, vector-nr, rS-Ad26, PF, 0.5 mL 1 completed Kanikajosiane buckner, [facility] 12/28/2022 13:35:05 pneumococcal polysaccharide PPV23 5 completed [facility], [facility] 12/28/2022 13:35:05 Hib (PRP-T) 5 completed [facility] Monica null, [facility] 12/28/2022 13:35:05 Influenza, adjuvanted, quadrivalent, PF 3 completed [facility] Monica sita, [facility] 06/07/2023 12:54:31 Pneumococcal conjugate PCV20, polysaccharide IYW206 conjugate, adjuvant, PF 3 [facility] 06/07/2023 12:54:31 Past Encounters Encounter ID Performer Location Encounter Start Date Encounter Closed Date Diagnosis/Indication Diagnosis SNOMED-CT Code Diagnosis ICD10 Code Diagnosis IMO Codes Diagnosis Note [id number] EARNESTINE MANDEL [facility] ([facility]) [address] [place] [id number] 5 12/08/2022 13:04:15 12/13/2022 13:36:25 Spasm 85713209 R25.2 Left Achil les tendinitis 3296661180 32159 M76.62 [id number] Prateek Cabral MD [facility] ([facility]) [address] [place] [id number] 5 12/28/2022 13:14:22 12/28/2022 19:27:53 Neuropathy due to diabetes mellitus 949866509 E11.40 Body mass index 40+ - severely obese 121973000 Z68.44 Chronic hy poxemic respiratory failure 957476591 J96.11 Atrial fibrillation 4943 6004 I48.91 Peripheral vascular disease 999785980 I73.9 Hypothyroidism 88463525 E03.9 Essential hypertension 22595475 I10 Left later al elbow tendinopathy 2361165173 26763 M77.12 tennis elbow brace ice the area frequently , rest the hands/wris ts/elbow.r ehabilitat ion exercises as demonstrat ed. follow up if not improvedpt referral Chronic ki dney disease stage 3A 865318117 N18.31 [id number] Prateek Cabral MD [facility] ([facility]) [address] [place] [address] [id number] 5 01/06/2023 09:46:51 01/18/2023 18:06:45 Morbid obesity 308104008 E66.01 Extreme ob esity with alveolar hypoventilation 670226075 E66.2 Pain of bi lateral knee joints 2689434030 36460 M25.561 M25.562 Diabetic p eripheral neuropathy 956346627 E11.40 Osteoarthritis 983620392 M19.90 Abnormal gait 58324121 R 26.9 Chronic low back pain 27 2097109 M54.50 [id number] Prateek Cabral MD [facility]) [address] [place] [id number] 5 03/10/2023 09:59:27 03/19/2023 14:48:34 Removal of suture 44592280 Z48.02 her suture site is well healedwe discussed the pathology dx and no need for further surgery on this but needs to see derm for comprehens bijal skin cancer tx. she will do so. after care discussedf /u or call if any issues sutures removed without difficulty the surgical site is intact and healing well without any sign of infection [id number] Prateek Cabral MD [facility] ([facility]) [address] [place] [id number] 5 03/17/2023 11:09:54 03/17/2023 14:14:25 Removal of suture 09438310 Z48.02 her suture site is well healedwe discussed the pathology dx and no need for further surgery on this but needs to see derm for comprehens bijal skin cancer tx. she will do so. after care discussedf /u or call if any issues sutures removed without difficulty the surgical site is intact and healing well without any sign of infection [id number] Prateek Cabral MD [facility]) [address] [place] [address] [id number] 5 03/22/2023 09:57:31 03/22/2023 10:35:55 [id number] Prateek Cabral MD [facility] ([facility]) [address] [place] [id number] 5 03/30/2023 10:40:29 03/30/2023 11:41:28 Hypothyroidism 57446143 E03.9 Type 2 trenton betes mellitus without complication 490661948 E11.9 Essential hypertension 05484704 I10 [id number] Prateek Cabral MD [facility] ([facility]) [address] [place] [id number] 5 06/07/2023 11:01:10 06/07/2023 18:22:20 Administration of influenza vaccine 69574135 Z23 Active or passive immunization 016213663 Z23 Venous sta sis edema of bilateral lower limbs 1789973770 1368761 I87.2 Cellulitis of lower limb 821894067 L03.438 [id number] Prateek Cabral MD [facility] ([facility]) [address] [place] [address] [id number] 5 09/28/2023 09:21:39 09/29/2023 10:26:52 Benign hypertension 10865814 I10 Hyperlipidemia 68608295 E78.5 Hypothyroidism 56855116 E03.9 Neuropathy due to diabetes mellitus 522797205 E11.40 [id number] Prateek Cabral MD [facility] ([facility]) [address] [place] [id number] 5 10/05/2023 09:57:16 10/05/2023 13:00:53 Body mass index 40+ - severely obese 731063269 Z68.43 disussed dietary chagnes Atrial fibrillation 4943 6004 I48.91 Chronic ki dney disease stage 3B 761404660 N18.32 stabke Peripheral vascular disease 985651386 I73.9 wounds healed Abnormal gait 71724155 R 26.9 Non-alcoho lic fatty liver 412170246 K76.0 [id number] Prateek Cabral MD [facility] ([facility]) [address] [place] [address] [id number] 5 02/10/2024 09:52:25 02/10/2024 13:44:23 Localized, primary osteoarthritis of the shoulder region 874718617 M19.012 M19.011 given her habitus, weight loss was strongly recommende d prior to matt fajardo. she understand s this. she would like to discuss any other options. we have discussed injections etc. we have discussed pain relieving meds not curative and likely not a good term solution. Arthritis of knee 859865 002 M13.861 M13.813 [id number] Chidi Vieira DO [facility] ([facility]) [address] [place] [address] 03/26/2024 13:05:16 03/26/2024 14:30:40 Acute upper respiratory infection 01086465 J06.9 COVID-19 983152447 U07.1 Pt is covid positive here in the office today.I counseled the patient on diagnosis, treatment options, medication s, and expectatio ns. All questions were addressed. we will start paxolvid and prednisone .Pt is to stay home and isolate for at least 5 days from when symptoms started, and then mask in public for an additional 5 days.They were instructed to call the office or come in for Follow Up with any questions, concerns, or worsening problems. [id number] Prateek Cabral MD [facility] ([facility]) [address] [place] [id number] 5 2024 08:48:27 04/08/2024 10:28:04 Essential hypertension 04337717 I10 Neuropathy due to diabetes mellitus 704638085 E11.40 Atrial fibrillation 4943 6004 I48.91 [id number] Prateek Cabral MD [facility] ([facility]) [address] [place] [address] [id number] 5 04/12/2024 09:51:56 04/12/2024 11:18:56 Atrial fibrillation 06096743 I48.91 Essential hypertension 95595877 I10 Hyperlipidemia 50649928 E78.5 Hypothyroidism 28132398 E03.9 Neuropathy due to diabetes mellitus 323858920 E11.40 Peripheral vascular disease 182007129 I73.9 wounds healed has patches with scale resembling ga or ringworm. path results pending. 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 6087564548 05 N18.30 avoid nsaids Severe obesity 712097713 1 9104 E66.01 [id number] Prateek Cabral MD [facility] ([facility]) [address] [place] [address] [id number] 5 10/10/2024 09:01:53 10/10/2024 09:05:46 Essential hypertension 68988067 I10 Hyperlipidemia 31187909 E78.5 Neuropathy due to diabetes mellitus 939237517 E11.40 Hypothyroidism 85241713 E03.9 [id number] Prateek Cabral MD [facility] ([facility]) [address] [place], [place] [id number] 5 10/25/2024 09:31:04 10/26/2024 08:14:47 Atrial fibrillation 16156160 I48.91 Type 2 trenton betes mellitus 43796556 E11.69 Morbid obesity 924387686 E66.01 Chronic ki dney disease stage 3A 099747865 N18.31 Peripheral vascular disease 094896297 I73.9 wounds healed has patches with scale resembling ga or ringworm. path results pending. Hypothyroidism 04490156 E03.9 Hyperlipidemia 12875376 E78.5 Essential hypertension 31588317 I10 Neuropathy due to diabetes mellitus 467996994 E11.40 Abnormal gait 68838575 R 26.9 Chronic re spiratory failure 12824410 J96.10 [id number] Prateek Cabral MD [facility] ([facility]) [address] [place] [address] [id number] 5 04/19/2025 10:04:59 04/22/2025 09:19:15 Essential hypertension 73254893 I10 Type 2 trenton betes mellitus 13442792 E11.69 2853515642 Chronic ki dney disease stage 3A 962702426 N18.31 Hypothyroidism 87354065 E03.9 [id number] Prateek Cabral MD [facility] ([facility]) [address] [place] [address] [id number] 5 04/26/2025 09:45:54 05/02/2025 11:19:34 Type 2 diabetes mellitus 38980367 E11.69 Lumbar spondylolisthesis 7017707112 01052 M43.16 [id number] we discussed her spinal instabilit y. if loss of bladder/ney wel control from baseline, saddle numbness foot drop, leg weakness etc go to er. Bilateral arthritis of knees 5651996734 580377 M17.0 22361981 Severe obesity 407368112 1 9104 E66.01 [id number] Uncontroll ed type 2 diabetes mellitus 230934430 E11.69 Bilateral sciatica 27628 31029 2929843 M54.31 M54.32 808329 [id number] Prateek Cabral MD [facility] ([facility]) [address] [place] [address] [id number] 5 06/05/2025 10:33:49 06/10/2025 09:42:19 Uncontrolled type 2 diabetes mellitus 010568227 E11.69 Spinal stenosis 43894629 M48.[address] Type 2 trenton betes mellitus 38600995 E11.69 Requires i nfluenza virus vaccination 051586544 Z23 5789357 Administra tion of influenza vaccine 41858672 Z23 Health Concerns Section Related Observation LastModified by Organization Detai ls LastModified Time None Recorded Concern Status LastModified by Organization Details LastModified Time None Recorded Advance Directives Directive None Recorded Payers Insurance Date Sequence Insurance Name Policy Number Policy Laguna Covered Member ID Laguna Member ID Guarantor Name 12/01/2023 2 UMR - CBA Roz Mann [id number] Roz Mann 06/04/2025 1 [place] [facility] Roz Mann [id number] Roz Mann 06/04/2025 2 [place] Roz Mann [id number] Roz Mann 06/04/2025 [place] - [facility] (MEDICARE) Roz Mann [id number] Roz Mann 06/04/2025 [place] [facility] Roz Mann [id number] Roz Mann Notes Date Note Type Note Provider Name and Address Organization Details Recorded Time 5 text/html DiabetesReported by PatientHPIFor associated symptoms, patient reportsheadaches,numbness of feet, andparesthesiasbut reportsno confusion,no increased thirst,no increased appetite,no increased urination, andno blurred vision. For duration, patient reportschronic. For control, patient reportsusually well controlled,hemoglobin a1c has been less than 7, andhemoglobin a1c goal is less than 7. For compliance, patient reportscompliant with medications,compliant with follow-up visits, andcompliant with home glucose monitoring. For self care, patient reportsmonitoring glucose daily(patient reports that her blood sugar has ranged from 65-124 fasting over the last 6 months). HyperlipidemiaReported by PatientHPIFor duration, patient reportschronic. For control, patient reportsusually well controlledandat goal. For adherence to treatment plan, patient reportstakes medications as prescribed. For complications, patient reportsno coronary artery diseaseandno cardiovascular disease. Hypertension IM/FMReported by PatientHPIFor associated symptoms, patient reportsexertional dyspneabut reportsno palpitationsandno chest pain. For quality, patient reportshere for check-up. For severity, patient reportsnormal (<120/<80 mmhg). For duration, patient reportshtn present for ___ years. For onset/timing, patient reportsgradual onset. For alleviating factors, patient reportsmedication. For self care, patient reportsnot under emotional stressandnon-smoker.her dyspnea is at baseline HypothyroidReported by PatientHPIFor reason for visit, patient reportstsh check/labs. For duration, patient reports>12 months. For associated symptoms, patient reportsno weaknessandno lightheadedness. For treatment, patient reportslast tsh level: 3.22.ROS as noted in the HPI she is actively tx her actinic lesions and she is going to see derm in two weeks. Prateek Cabral MD [address] [place] [address], [phone], [facility] 10/25/2024 10:56:47 5 text/html DiabetesReported by PatientHPIFor associated symptoms, patient [...] monitoring. For self care, patient reportsmonitoring glucose daily(patient had taken some steroids recently and her bs went up over 200, but normally bs is anywhere from 80-120s). HyperlipidemiaReported by PatientHPIFor duration, patient reportschronic. For control, patient reportsusually well controlledandat goal. For adherence to treatment plan, patient reportstakes medications as prescribed. For complications, patient reportsno coronary artery diseaseandno cardiovascular disease. Hypertension IM/FMReported by PatientHPIFor associated symptoms, patient reportsexertional dyspneabut reportsno palpitationsandno chest pain. For quality, patient reportshere for check-up. For severity, patient reportsnormal (<120/<80 mmhg). For duration, patient reportshtn present for ___ years. For onset/timing, patient reportsgradual onset. For alleviating factors, patient reportsmedication. For self care, patient reportsnot under emotional stressandnon-smoker.her dyspnea is at baseline HypothyroidReported by PatientHPIFor reason for visit, patient reportstsh check/labs. For duration, patient reports>12 months. For associated symptoms, patient reportsno weaknessandno lightheadedness. For treatment, patient reportslast tsh level: 1.41.ROS as noted in the HPI [facility] @ [id number] [place], [place] [address]GSnv ReportSignedPatient: Roz Mann #: [id number]: [id number]#:[id number]/Sex: 74 / FADM Date: 04/12/24Loc: ORTORoom/Bed:Attending Dr: Santhosh Novoa DOOrdering Provider/Ordering MD: Santhosh Novoa DODate of Service: 04/12/24Procedure(s): XR lumbar spine min 4V [id number] Number(s): [id number] Number: [id number]: [id number] lumbar spine min 4V [id number] FOR EXAM: lumbar painFINDINGS:Mild rotatory levoscoliosis.Straightening of the normal lordosis of the lumbar spine.No significant vertebral body abnormality. Mild osteophytosis L1-L5. Large left lateral bridging osteophyte at L2-L3.Mild narrowing of the intervertebral disc spaces L1-2 L4. Moderate narrowing of the disc spaces at L4-L5 and significant disc space narrowing at L5-S1.4 mm of anterolisthesis of L4 and L5 in the neutral position. With flexion this listhesis increases by 2 mm. The listhesis reduces somewhat with extension.No listhesis develops during flexion or extension.Moderate degenerative arthropathy in the facet joints L4-S1. XR/XR lumbar spine min 4V [id number]:Degenerativ e spondylosis of the lumbar spine as noted above. Prateek Cabral MD [address] [place] [address], [phone], [facility] 04/26/2025 11:04:30 5 text/html DiabetesReported by PatientHPIFor associated symptoms, patient [...] time. Patient is also reminded to d/c Tradjenta.ROS as noted in the HPI 1 month f/u Mounjaro started at last visit Patient would like to get a refill of her gabapentin. Prateek Cabral MD [address] [place] [address], [phone], [facility] 06/05/2025 11:17:45 OBGyn Episode No OBEpisode recorded.
--- OUTSIDE RECORDS SUMMARY | 2025-07-13 21:43 | XMS_ITS | Patient Health Record ---
Author Organization [facility] Address [address] [place] [address] Care Team Providers Care Roll Up Machine Operator Name Role Phone Misha BERGER, Rm Primary Care Provider Nathanael To [phone] Reason For Referral No Information Plan Of Treatment Next Appt Details Provider Name:Salty downing, 07/17/2025 01:15:00 PM, [address], NIMESH [address], [place], [address], Insurance Providers Payer Name Payer Address Payer Phone Subscriber Number Group Number Insured Name Patient Relationship to Insured Coverage Start Date Coverage End Date [place] [address] [address] [place] [address] [id number] Roz Mann Self - patient is the insured [place] Medicaid [address] [place] [address] [id number] Roz Mann Self - patient is the insured [place] Medicare [address] RAUL JENNA KHAN [address] [id number] Roz Mann Self - patient is the insured
--- OUTSIDE RECORDS SUMMARY | 2025-07-13 21:43 | XMS_ITS | Continuity of Care Document ---
Author Organization [facility] Julio Waddell [facility] Zaki, Sujata, [facility] ([facility]) Address [address] [place] [address] Care Team Providers Care Radiation Oncology Nurse Name Role Phone PRATEEK CABRAL Primary Care [...] hep and provide less risk than surgery. [email or web address] Not available 04/26/2025 10:59:19 Plan of Treatment Reminders Order Date Submit Date Provider Last Modified By Organization Details Last Modified Time Details Appointments None recorded. Lab None recorded. Referral None recorded. Procedures None recorded. Surgeries None recorded. Imaging MRI, lumbar spine, w/o contrast - Patient will need to be put in feet first for this. 2024 025 asurface [facility], Rose Mary[address], [place], [address], 15:19:54 Medication Orders Mounjaro 2.5 mg/0.5 mL subcutaneou s pen injector 2024 025 [email or web address] 5 [facility], [facility] [place], [address], 13:47:57 Tresiba FlexTouch U-200 insulin 200 unit/mL (3 mL) subcutaneou s pen 2024 025 [email or web address] 5 [facility], [facility] [place], [address], 10:52:02 Patient TargetsNo targets recorded. Patient InstructionsNo instructions recorded. Reason for Referral None Reported. Results Created Date Observation Date Name Description Value Unit Range Abnormal Flag Note LastModifiedBy Organization Detail LastModifiedTime 04/19/2004/19/2025 CBC WBC 12.0 x10 4.0-10 .5 high Not Available [facility] [address] [facility] [address], [place], [address], 04/19/2025 11:50:56 04/19/2004/19/2025 CBC RBC 3.95 x10 3.50-5 .50 Not Available [facility] [address] [facility] [address], [place], [address], 04/19/2025 11:50:56 04/19/2004/19/2025 CBC HGB 11.8 g/dL 12.0-1 6.0 low Not Available [facility] [address] [facility] [address], [place], [address], 04/19/2025 11:50:56 04/19/2004/19/2025 CBC HCT 37.8 % 37.0-4 7.0 Not Available [facility] [address] [facility] [address], [place], [address], 04/19/2025 11:50:56 04/19/2004/1904/19/2025 CBC MCV 95.7 fL 80.0-9 9.9 Not Available [facility] [address] Moh[address] Perdomo [facility], [place], [address], 04/19/2025 11:50:56 04/19/20 25 04/19/2025 CBC MCH 29.9 pg 27.0-3 2.0 Not Available [facility] [address] [facility], [place], [address], 04/19/2025 11:50:56 04/19/20 25 04/19/2025 CBC MCHC 31.2 g/dL 32.0-3 6.0 low Not Available [facility] [address] Moh[address] Perdomo [facility] 1, [place], [address], 04/19/2025 11:50:56 04/19/20 25 04/19/2025 CBC RDW 13.9 % 11.5-1 4.5 Not Available [facility] [address] [facility] 1, [place], [address], 04/19/2025 11:50:56 04/19/20 25 04/19/2025 CBC plt 214.7 x10 140.0- 451.0 Not Available [facility] [address] [facility] 1, [place], [address], 04/19/2025 11:50:56 04/19/20 25 04/19/2025 CBC lymphocytes % 23.4 % 20.0-5 0.0 Not Available [facility] [address] [facility] 1, [place], [address], 04/19/2025 11:50:56 04/19/20 25 04/19/2025 CBC granulcytes % 68.7 % 30.0-7 0.0 Not Available [facility] [address] [facility] 1, [place], [address], 04/19/2025 11:50:56 04/19/20 25 04/19/2025 CBC monocytes % 4.8 % 2.0-16 .0 Not Available [facility] [address] [facility] 1, [place], [address], 04/19/2025 11:50:56 04/19/20 25 04/19/2025 CBC granulcytes# 8.2 x10 Not Kaur ilable [facility] [address] [facility], [place], [address], 04/19/2025 11:50:56 04/19/20 25 04/19/2025 CBC lymphocytes # 2.8 x10 Not Available [facility] [address] [address], [place], [address], 04/19/2025 11:50:56 04/19/20 25 04/19/2025 CBC monocytes # 0.6 x10 Not Avai lable [facility] [address] [address], [place], [address], 04/19/2025 11:50:56 04/19/20 25 04/19/2025 HBA1C hemaglobin A1C 6.4 4.2-6. 5 Not Available [facility] [address] [address], [place], [address], 04/19/2025 11:52:01 04/19/20 25 04/19/2025 CMP (FEMA LE) glucose 121.0 mg/dL 60.0-9 9.0 high Not Available [facility] [address] [address], [place], [address], 04/19/2025 12:21:53 04/19/20 25 04/19/2025 CMP (FEMA LE) BUN (blood urea nitrogen) 33.0 mg/dL 10.0-2 6.0 high Not Available [facility] [address] [facility], [place], [address], 04/19/2025 12:21:53 04/19/20 25 04/19/2025 CMP (FEMA LE) creatinine (serum) 1.1 mg/dL 0.4-1. 5 Not Available [facility] [address] [facility], [place], [address], 04/19/2025 12:21:53 04/19/20 25 04/19/2025 CMP (FEMA LE) BUN/creatini ne ratio 30.00 ratio Not Available [facility] [address] [facility], [place], [address], 04/19/2025 12:21:53 04/19/20 25 04/19/2025 CMP (FEMA LE) eGFR calculated 51.2 Not Available [facility] [address] [facility], [place], [address], 04/19/2025 12:21:53 04/19/20 25 04/19/2025 CMP (FEMA LE) total protein 6.7 g/dL 6.0-8. 5 Not Available [facility] [address] [facility], [place], [address], 04/19/2025 12:21:53 04/19/20 25 04/19/2025 CMP (FEMA LE) total bilirubin 0.5 mg/dL 0.2-1. 3 Not Available [facility] [address] [facility], [place], [address], 04/19/2025 12:21:53 04/19/20 25 04/19/2025 CMP (FEMA LE) albumin 4.1 g/dL 3.5-5. 5 Not Available [facility] [address] [facility], [place], [address], 04/19/2025 12:21:53 04/19/20 25 04/19/2025 CMP (FEMA LE) globulin 2.6 calc Not Available [facility] [address] [facility] [address], [place], [address], 04/19/2025 12:21:53 04/19/20 25 04/19/2025 CMP (FEMA LE) AST (SGOT) 22.0 U/L 0.0-46 .0 Not Available [facility] [address] [facility] [address], [place], [address], 04/19/2025 12:21:53 04/19/20 25 04/19/2025 CMP (FEMA LE) altv (SGPT) 21.0 U/L 13.0-6 9.0 normal Not Available [facility] [address] [facility] [address], [place], [address], 04/19/2025 12:21:53 04/19/20 25 04/19/2025 CMP (FEMA LE) A/G ratio 1.6 ratio Not Available [facility] [address] [facility] [address], [place], [address], 04/19/2025 12:21:53 04/19/20 25 04/19/2025 CMP (FEMA LE) ALP phos 116.0 U/L 30.0-1 40.0 normal Not Available [facility] [address] [facility] [address], [place], [address], 04/19/2025 12:21:53 04/19/20 25 04/19/2025 CMP (FEMA LE) calcium 9.7 mg/dL 8.4-10 .5 Not Available [facility] [address] [facility] [address], [place], [address], 04/19/2025 12:21:53 04/19/20 25 04/19/2025 CMP (FEMA LE) sodium 141.0 mmol/ L 136.0- 145.0 Not Available [facility] [address] [facility] 1, [place], [address], 04/19/2025 12:21:53 04/19/2004/19/2025 CMP (FEMA LE) potassium 4.4 mmol/ L 3.5-5. 1 Not Available [facility] [address] [facility] 1, [place], [address], 04/19/2025 12:21:53 04/19/2004/19/2025 CMP (FEMA LE) chloride 108.0 mmol/ L 98.0-1 10.0 normal Not Available [facility] [address] [facility] [address], [place], [address], 04/19/2025 12:21:53 04/19/2004/19/2025 CMP (FEMA LE) C02 25.0 mmol/ L 22.0-3 1.0 Not Available [facility] [address] [facility] [address], [place], [address], 04/19/2025 12:21:53 04/19/2004/19/2025 CMP (FEMA LE) anion gap 8.0 calc Not Available [facility] [address] [facility] [address], [place], [address], 04/19/2025 12:21:53 04/19/2004/19/2025 CMP (FEMA LE) osmolality 299.1 calc Not Available [facility] [address] [facility] [address], [place], [address], 04/19/2025 12:21:53 04/19/2004/19/2025 TSH TSH 1.41 uIU/m L 0.49-3 .82 Not Available [facility] [address] [facility] [address], [place], [address], 04/19/2025 12:22:04 04/19/2004/20/2025 ALBUM IN, RANDO M URINE W/CRE ATINI NE creatinine, random urine 72 mg/dL 20-275 normal Not Available [address] [address] [place], [address], 04/20/2025 06:12:26 04/19/2004/20/2025 ALBUM IN, RANDO M URINE W/CRE ATINI NE albumin, urine 5.9 mg/dL see note: normal Refer ence Range : Refer ence Range Not estab lishe d Not Available [address], [address], 04/20/2025 06:12:26 04/19/2004/20/2025 ALBUM IN, RANDO M [...] a diagn ostic categ ory. Not Available [address] [address] [place], [address], 04/20/2025 06:12:26 04/19/2004/20/2025 PTH, INTAC T WITHO [...] or Low Lucy l High Not Available [facility] [address] [place], [address], 04/20/2025 06:12:27 04/29/20 25 12/13/2021 XR, chest [...] contr ast No observ ation record ed. [facility] [address] [facility], [place], [address], 05/31/2025 12:14:48 Result Notes None recorded. Problems Name Problem SNOMED Code Status Onset Date Resolution Date Notes Provider Name and Address Organization Details Recorded Time Meredithbrittni 259138775 Active 2021 BUNNY Vizcaino - [facility] 10:13:09 Hyperlipi demia 35510046 Active 2021 RIANNA PINEDA null, [facility] 4 10:12:19 Neuropath y due to diabetes mellitus 741720447 Active 2022 RIANNA PINEDA sita, [facility] 4 10:12:47 Atrial fibrillat ion 14091482 Active 2022 RIANNA buckner, [facility] 4 10:11:21 Periphera l vascular disease 255283148 Active 2022 RIANNA buckner, [facility] 4 10:12:55 Hypothyro idism 40934621 Active 2022 RIANNA PINEDA sita, [facility] 4 10:12:25 Essential hypertens ion 78223991 Active 2022 RIANNA buckner, [facility] 4 10:12:08 Chronic respirato ry failure 12400591 Active 2023 RIANNA buckner, [facility] 5 08:53:36 Abnormal gait 42182672 Active 2023 RIANNA buckner, [facility] 5 08:53:01 Obstructi ve sleep apnea syndrome 91325347 Active 2023 RIANNA PINEDA sita, [facility] 4 10:26:23 Non-alcoh olic fatty liver 468889489 Active 2023 RIANNA buckner, [facility] 5 08:53:36 Squamous cell carcinoma of skin 170696617 Completed 202310/29/2024 Kanika buckner, [facility] 5 23:11:35 Actinic keratosis 779744930 Active 2023 Kanika Mcdermottoch null, [facility] 5 23:11:29 Chronic kidney disease stage 3 due to type 2 diabetes mellitus 850696055770 Active 2023 RIANNA PINEDA null, [facility] 5 08:53:36 Type 2 diabetes mellitus 54892731 Active 2024 RIANNA PINEDA null, [facility] 5 15:24:58 Morbid obesity 734448937 Active 2024 RIANNA PINEDA null, [facility] 5 08:53:36 Chronic kidney disease stage 3A 976715648 Active 2024 RIANNA PINEDA null, [facility] 5 08:53:36 Bilateral sciatica 524754966954 11092 Active 2024 Prateek Cabral MD [address] [place] [address], [address] , [facility] 5 11:03:33 Bilateral arthritis of knees 319445208765 9108 Active 2024 RIANNA PINEDA null, [facility] 5 13:27:03 Lumbar spondylol isthesis 763420236023 102 Active 2024 RIANNA PINEDA null, [facility] 5 13:27:03 Severe obesity 143516458893 04 Active 2024 RIANNA PINEDA null, [facility] 13:27:03 Uncontrol led type 2 diabetes mellitus 562302589 Active 2024 [facility] PINEDA null, [facility] 13:27:03 Problem Notes None recorded. Procedures Surgical History Date Name Laterality Status Provider Name and Address Organization Details Recorded Time repair of umbilical hernia completed [facility] 10:14:45 hysterectomy completed [facility] 01/06/2023 09:57:35 [facility] 23:11:55 [facility]/29[facility]2024 23:12:06 Imaging Results None recorded. Procedure [...] 22 8:03AM by Rianna Pineda LPN (Authori zed through Prateek Cabral MD), Refill Request; Refill Quantity : 1; Applicat or; Not Available Not Available Not Available nystatin two times daily 03/10 completed appply to the affected areas twice daily; 436; Recorded 12/02/19 22 9:53AM by Rianna Pineda LPN (Authori zed through Prateek Cabral MD), Annotati on/Adden dum; [...] LPN (Authori zed through Prateek Cabral MD), Annotati on/Adden dum; [...] Organization Details Last Updated DateTime 162.56 cm 97.2 [degF] 56 /min 99 % 136/64 mm[Hg] RIANNA PINEDA [facility] 10:17:18 Social History Question Answer Notes LastModified by [employer] Details LastModified Time Tobacco Smoking Status Never Smoker RIANNA buckner [facility] 01/06/2023 09:56:56 What Was The Date Of Your Most Recent Tobacco Screening? 04/26/2025 [email or web address] Information not available 04/26/2025 Sex: Unknown Functional Status Question Answer Note LastModified by Organizat ion Details LastModified Time Do you use any illicit or recreational drugs? No [email or web address] Information not available 01/06/2023 Do you or have you ever used any other forms of tobacco or nicotine? No [email or web address] Information not available 10/05/2023 What is your level of alcohol consumption? None [email or web address] Information not available 01/06/2023 Do you or have you ever used any nicotine-free cigarettes, vape, or chewing tobacco? No [email or web address] Information not available 04/26/2025 Mental Status None recorded. Family History Relationship Description Onset Age of this Age Resolved Age Notes LastModified by Organization Details LastModified Time Mother Myocardial infarction [email or web address] Not available 03/2023 09:57:04 Father Coronary atherosclero sis [email or web address] Not available 01/06 09:57:12 Medical History No medical history recorded. Gynecological HistoryNo gynecological history recorded. Obstetrics History GPAL:G 0 P 0 0 0 0 Immunizations Vaccine Type Date Status Note Provider Nam e and Address Organization Details Recorded Time zoster live 3 completed Not Available [facility] 06/07/2023 11:01:31 Influenza, split virus, trivalent, preservative 2 completed Not Available [facility] 06/07/2023 11:01:31 Tdap 7 completed Not Available [facility] 06/07/2023 11:01:31 Influenza, split virus, trivalent, preservative 1 completed Not Available [facility] 06/07/2023 11:01:31 Influenza, split virus, trivalent, preservative 8 completed Not Available [facility] 06/07/2023 11:01:31 Influenza, split virus, trivalent, preservative 7 completed Not Available [facility] 06/07/2023 11:01:31 Influenza, split virus, trivalent, preservative 1 completed Not Available [facility] 06/07/2023 11:01:31 Pneumococcal conjugate PCV 13 7 completed Not Available [facility] 06/07/2023 11:01:31 pneumococcal polysaccharide PPV23 8 completed Not Available [facility] 06/07/2023 11:01:31 pneumococcal polysaccharide PPV23 5 completed Not Available [facility] 06/07/2023 11:01:31 Influenza, adjuvanted, trivalent, PF 5 completed RIANNA buckner, [facility] 06/05/2025 12:31:22 Influenza, high-dose, trivalent, PF 4 completed Not Available [facility] 06/05/2025 10:34:06 zoster recombinant 1 completed Kanika buckner, [facility] 12/28/2022 13:35:05 zoster recombinant 0 completed Kanika buckner, [facility] 12/28/2022 13:35:05 Influenza, high-dose, quadrivalent, PF 2 [facility] 12/28/2022 13:35:05 COVID-19 vaccine, vector-nr, rS-Ad26, PF, 0.5 mL 1 completed Kanika buckner, [facility] 12/28/2022 13:35:05 pneumococcal polysaccharide PPV23 5 [facility] 12/28/2022 13:35:05 Hib (PRP-T) 5 completed Kanika buckner, [facility] 12/28/2022 13:35:05 Influenza, adjuvanted, quadrivalent, PF 3 completed Kanika buckner, [facility] 06/07/2023 12:54:31 Pneumococcal conjugate PCV20, polysaccharide HMV373 conjugate, adjuvant, PF 3 completed [facility] 06/07/2023 12:54:31 Past Encounters Encounter ID Performer Location Encounter Start Date Encounter Closed Date Diagnosis/Indication Diagnosis SNOMED-CT Code Diagnosis ICD10 Code Diagnosis IMO Codes Diagnosis Note [id number] Prateek Cabral MD [facility] ([facility]) [address] [place] [address] 04/19/2025 10:04:59 04/22/2025 09:19:15 Essential hypertension 97144238 I10 Type 2 trenton betes mellitus 69957982 E11.69 4565826054 Chronic ki dney disease stage 3A 131255957 N18.31 Hypothyroidism 05805005 E03.9 [id number] Prateek Cabral MD [facility] ([facility]) [address] [place] [address] 04/26/2025 09:45:54 05/02/2025 11:19:34 Type 2 diabetes mellitus 20972169 E11.69 Lumbar spondylolisthesis 4657228923 89305 M43.16 9699408 we discussed her spinal instabilit y. if loss of bladder/ney wel control from baseline, saddle numbness foot drop, leg weakness etc go to er. Bilateral arthritis of knees 4709775910 863309 M17.0 92287175 Severe obesity 794182887 1 9104 E66.01 800293 Uncontroll ed type 2 diabetes mellitus 822350664 E11.69 Bilateral sciatica 69092 [address]109 9264736 M54.31 M54.32 [id number] Health Concerns Section Related Observation LastModified by Organization Detai ls LastModified Time None Recorded Concern Status LastModified by Organization Details LastModified Time None Recorded Payers Encounter Date Sequence Insurance Name Policy Number Policy [place] Covered Member ID Laguna Member ID Guarantor Name 04/26/2025 1 [place] Roz Mann [id number] Roz Mann 04/26/2025 2 [place] Roz Mann [id number] Roz Mann Notes Date Note Type Note [...] level: 1.41.ROS as noted in the HPI [facility] [id number] [place], [place] [address]YPxu ReportSignedPatient: Roz Mann #: [id number]: [id number]#:[id number]/Sex: 74 / FADM Date: 04/12/24Loc: ORTORoom/Bed:Attending Dr: Santhosh Novoa DOOrdering Provider/Ordering MD: Santhosh Novoa DODate of Service: 04/12/24Procedure(s): XR lumbar spine min 4V 09145Vgsnkghaw Number(s): [id number] Number: [id number]: [id number] lumbar spine min 4V 47825HTIXFS FOR EXAM: lumbar painFINDINGS:Mild rotatory levoscoliosis.Straightening of [...] joints L4-S1. XR/XR lumbar spine min 4V [id number]:Degenerativ e spondylosis of the lumbar spine as noted above. Prateek Cabral MD [address] [place] [address], [phone], [facility] 04/26/2025 11:04:30 OBGyn Episode No OBEpisode recorded.
--- OUTSIDE RECORDS SUMMARY | 2025-07-13 21:43 | XMS_ITS | Clinical Summary ---
Author Organization [facility] Address [address] [place] [address] Phone Care Team Providers Care Portable Trackman Name Role Phone Unavailable Primary Care Provider Unavailabl e Encounters Date Type Department Care Team Description 04/30/2025 Transcribe Orders [facility] Centralized Scheduling [place] CALL TO MAKE APPOINTMENT ONLY [address] [place] [address] Rm Cabral MD Spondylolisthesis of lumbar region (Primary Dx) from Last 3 Months Social History Tobacco Use Types Packs/Day Years Used Date Smoking Tobacco: Never Assessed Comments Unknown Sex and Gender Information Value Date Recorded Sex Assigned at Not on file Legal Sex Female 8:41 AM CDT Gender Identity Not on file Sexual Orientation Not on file Plan of Treatment Health Maintenance Due Date Last Done Comments DTAP/TDAP/TD VACCINES (1 - Tdap) 1967 PNEUMOCOCCAL VACCINE 50+ YEARS (1 of 1 - PCV) 04/06/19 98 ZOSTER VACCINE (1 of 2) 1998 OSTEOPOROSIS SCREENING 2013 RSV VACCINE (60+ or ) (1 - 1-dose 75+ series) 2023 INFLUENZA VACCINE (#1) 2025
--- NOTE | 2025-07-13 22:23 | XRR_ITS ---
PROCEDURE INFORMATION: Exam: XR Left Shoulder Exam date and time: 07/13/2025 10:31 PM Age: 75 years old Clinical indication: C/O of left shoulder pain with limited rom. No injury. ; Additional info: L shoulder pain TECHNIQUE: Imaging protocol: Radiologic exam of the left shoulder. Views: 2 or more views. COMPARISON: CR XR chest 1V portable [id number] 09/15/2021 6:37 PM FINDINGS: Bones/joints: Mild degenerative changes of the AC joints. Soft tissues: Normal. XR/XR shoulder LT min 2V* [id number] IMPRESSION: No definite acute findings.
[2025-07-13 22:34] VITALS: BP 159/57; O2SAT 97
--- NOTE | 2025-07-14 00:02 | W.ED.EXTPRO ---
HPI - Extremity Problem General: Chief complaint: Extremity Injury, Upper Stated complaint: LT shoulder hurting Time Seen by Provider: 07/13/25 22:22 History of Present Illness: Patient is a 75-year-old female who presents with acute onset right shoulder pain that began last night. She reports that while reaching to pull her blankets over herself, she felt grinding and snapping in her shoulder accompanied by severe pain. She denies any direct trauma to the area. Patient states she is unable to elevate the arm or move it in certain directions, though she maintains some limited range of motion. She has attempted self-treatment with Tylenol and gabapentin (which she normally takes for foot-related issues) without significant relief. She denies fever or recent injections/procedures to the affected shoulder. Related Data Home Medications ?Medication ?Instructions ?Recorded ?Confirmed metformin 1,000 mg tablet 1,000 mg PO BID 01/29/21 07/11/25 rosuvastatin 20 mg tablet 20 mg PO BEDTIME 01/29/21 07/11/25 fluticasone propionate 50 1 spray intranasal BID 07/13/21 07/11/25 mcg/actuation nasal spray,suspension montelukast 10 mg tablet 10 mg PO BEDTIME 07/13/21 07/11/25 albuterol sulfate 90 mcg/actuation 2 puff inhalation BID PRN 09/16/21 07/11/25 aerosol inhaler Shortness Of Breath azelastine 137 mcg (0.1 %) nasal 2 spray intranasal BID 09/16/21 07/11/25 spray calcium 333 mg-vit D3 133 3 tab PO BEDTIME 09/16/21 07/11/25 unit-magnesium 133 mg-zinc 5 mg tablet (Rene Mag Zinc Plus D3) furosemide 20 mg tablet 20 mg PO DAILY PRN Edema 09/16/21 07/11/25 glipizide 5 mg tablet, extended 5 mg PO QAM 09/16/21 07/11/25 release 24 hr insulin degludec 200 unit/mL (3 64 unit SUBCUT QAM 09/16/21 07/11/25 mL) subcutaneous pen (Tresiba FlexTouch U-200 insulin) levothyroxine 100 mcg tablet 100 mcg PO .MON THROUGH FRI 09/16/21 07/11/25 levothyroxine 125 mcg tablet 125 mcg PO .ON SAT AND SUN 09/16/21 07/11/25 linagliptin 5 mg tablet (Tradjenta) 5 mg PO BEDTIME 09/16/21 07/11/25 lisinopril 20 mg tablet 20 mg PO QAM 09/16/21 07/11/25 Held on 09/17/21. Instructions: Resume on 09/28/21. mirabegron 25 mg tablet,extended 25 mg PO QAM 09/16/21 07/11/25 release 24 hr (Myrbetriq) triamcinolone acetonide 0.1 % 1 applic topical BID PRN UNKNOWN 09/16/21 07/11/25 topical cream betamethasone valerate 0.1 % 1 applic topical DAILY PRN 05/10/24 07/11/25 topical cream calcipotriene 0.005 % scalp 1 applic topical DAILY 05/10/24 07/11/25 solution fluorouracil 5 % topical cream 1 applic topical BID 05/10/24 07/11/25 Previous Rx's ?Medication ?Instructions ?Recorded diabetic shoes with 3 molded #1 ea 07/13/21 inserts apixaban 5 mg tablet (Eliquis) 5 mg PO BID #90 tabs 09/17/21 benzonatate 200 mg capsule 200 mg PO BID PRN cough #60 caps 09/17/21 dextromethorphan-guaifenesin 5 10 ml PO Q4H PRN cough #237 mL 09/17/21 mg-100 mg/5 mL oral liquid (Robitussin Cough-Chest Congestion DM) metoprolol tartrate 25 mg tablet 12.5 mg (1/2 x 25 mg) PO 09/17/21 BID@0900,2100 #180 tabs diazepam 5 mg tablet 5 mg PO BID PRN anxiety #2 tabs 04/12/24 mupirocin 2 % topical ointment 1 applic topical TID #22 grams 08/31/24 cyclobenzaprine 10 mg tablet 10 mg PO TID PRN muscle spasm 7 12/18/24 days #21 tabs methocarbamol 500 mg tablet 500 mg PO Q8H #20 tabs 03/27/25 methylprednisolone 4 mg tablets in See Rx Instructions PO .COMPLEX 03/27/25 a dose pack (Medrol (Tristan)) #21 ea gabapentin 100 mg capsule See Rx Instructions .Route 07/08/25 .COMPLEX #270 caps hydrocodone 5 mg-acetaminophen 325 1 tab PO Q8H PRN pain #7 tabs 07/13/25 mg tablet Allergies Allergy/AdvReac Type Severity Reaction Status Date / Time No Known Allergies Allergy Verified 07/13/25 21:49 PFS ED PFSH: Medical History (Updated 07/13/25 @ 23:51 by Abran Emerson DO) Atrial fibrillation Pneumonia Diabetes Hyperlipidemia Essential (primary) hypertension Surgical History History of hernia surgery History of tubal ligation History of tonsillectomy History of appendectomy H/O: hysterectomy Family History Other CAD (coronary artery disease) Social History Smoking and tobacco/nicotine status: never used tobacco/nicotine Alcohol intake: never Physical Exam Const: COMMON NORMALS: no acute distress GENERAL APPEARANCE: cooperative; not ill appearing and not frail appearing HENMT: COMMON NORMALS: normocephalic, atraumatic and Normal external nose present HEAD & SCALP: normocephalic and atraumatic FACE & SINUS: normal facial exam and face symmetric NOSE: Normal external nose present Eye: COMMON NORMALS: Equal, round and reactive pupils present and EOMs intact bilaterally PUPIL: Yes Equal, round and reactive pupils present Neck/C-Spine: GENERAL: Yes trachea midline Chest: CHEST: Yes Symmetrical chest wall rise Resp: COMMON NORMALS: normal respiratory effort, No retractions, No use of accessory muscles and clear to auscultation bilaterally AUSCULTATION: clear to auscultation bilaterally Cardio: COMMON NORMALS: regular rate and regular rhythm RATE: regular rate RHYTHM: regular rhythm Extremity: NARRATIVE EXTREMITY EXAM: Examination of the left shoulder reveals tenderness to palpation anteriorly more than posteriorly. There is no palpable joint effusion. There is significant pain with active and passive range of motion. There is mild warmth with no redness or significant heat. Neuro: JOSE COMA SCALE: document GCS findings Jose coma scale eye opening: Spontaneous [place] coma scale verbal response: Orientated Jose coma scale motor response: Obey commands Jose coma scale total score: 15 SENSORY EXAM: Yes extremities (intact) Psych: COMMON NORMALS: speech normal SPEECH: Yes normal speech Skin: COMMON NORMALS: no rashes or lesions noted GENERAL SKIN EXAM: no rashes or lesions noted Course Vital Signs: Vital signs: Vital Signs Temperature 97.5 F L 07/13/25 21:39 Pulse Rate 58 L 07/14/25 00:37 Respiratory Rate 18 07/13/25 21:39 Blood Pressure 161/65 07/14/25 00:37 Pulse Oximetry 98 07/14/25 00:37 Oxygen Delivery Me thod Room Air 07/14/25 00:36 MDM - Extremity (Nontraumatic) Medical Decision Making Vitals are stable. She is afebrile. She has tenderness to palpation without deformity. No evidence of septic joint on exam. No palpable effusion. She is given pain medication here. Anti-inflammatories. She will alternate anti-inflammatories with pain medication. Sling for comfort for up to 5 days no more. Outpatient follow-up. X-ray is negative. Lab Data Radiology Impressions Shoulder X-Ray 07/13/25 22:23 IMPRESSION: No definite acute findings. All radiology interpretation(s) finalized by discharge Discharge Plan Discharge Patient Disposition: Home Clinical Impression: Acute pain of left shoulder Condition: Stable Prescriptions: New hydrocodone-acetaminophen 5-325 mg tablet 1 tab PO Q8H PRN (Reason: pain) Qty: 7 0RF No Action metformin 1,000 mg tablet 1,000 mg PO BID rosuvastatin 20 mg tablet 20 mg PO BEDTIME montelukast 10 mg tablet 10 mg PO BEDTIME fluticasone propionate 50 mcg/actuation spray,suspension 1 spray intranasal BID Rx Instructions: administer into each nostril (DME) diabetic shoes with 3 molded inserts See Rx Instructions .Route .MEDSUPPLY Qty: 1 0RF Rx Instructions: As directed diazepam 5 mg tablet 5 mg PO BID PRN (Reason: anxiety) Qty: 2 0RF Rx Instructions: 1st tab 1 1/2 hour prior to MRI. 2 tab just prior to MRI fluorouracil 5 % cream 1 applic topical BID betamethasone valerate 0.1 % cream 1 applic topical DAILY PRN calcipotriene 0.005 % solution 1 applic topical DAILY Rx Instructions: rub in gently and completely mupirocin 2 % ointment 1 applic topical TID Qty: 22 2RF Rx Instructions: apply to wound TID and as needed with dressing changes, cover with band-aid cyclobenzaprine 10 mg tablet 10 mg PO TID PRN (Reason: muscle spasm) 7 Days Qty: 21 1RF gabapentin 100 mg capsule See Rx Instructions .ROUTE .COMPLEX Qty: 270 1RF Dose Instruction: take 1 capsule BY MOUTH THREE TIMES DAILY Rx Instructions: take 1 capsule BY MOUTH THREE TIMES DAILY lisinopril 20 mg tablet 20 mg PO QAM glipizide 5 mg tablet extended release 24hr 5 mg PO QAM triamcinolone acetonide 0.1 % cream 1 applic TOPICAL BID PRN (Reason: UNKNOWN) levothyroxine 100 mcg tablet 100 mcg PO .MON THROUGH FRI levothyroxine 125 mcg tablet 125 mcg PO .ON SAT AND SUN furosemide 20 mg tablet 20 mg PO DAILY PRN (Reason: Edema) azelastine 137 mcg (0.1 %) aerosol,spray 2 spray INTRANASAL BID albuterol sulfate 90 mcg/actuation HFA aerosol inhaler 2 puff INHALATION BID PRN (Reason: Shortness Of Breath) Tradjenta 5 mg tablet 5 mg PO BEDTIME Rene Mag Zinc Plus D3 333 mg-133 unit -133 mg-5 mg Tablet 3 tab PO BEDTIME Myrbetriq 25 mg tablet extended release 24 hr 25 mg PO QAM Tresiba FlexTouch U-200 200 unit/mL (3 mL) insulin pen 64 unit SUBCUT QAM benzonatate 200 mg capsule 200 mg PO BID PRN (Reason: cough) Qty: 60 0RF Robitussin Cough-Chest Ryan DM 5-100 mg/5 mL liquid 10 ml PO Q4H PRN (Reason: cough) Qty: 237 0RF Eliquis 5 mg tablet 5 mg PO BID Qty: 90 0RF metoprolol tartrate 25 mg Tablet 12.5 mg PO BID@0900,2100 Qty: 180 0RF methocarbamol 500 mg tablet 500 mg PO Q8H Qty: 20 0RF methylprednisolone [Medrol (Tristan)] 4 mg tablets,dose pack See Rx Instructions .ROUTE .COMPLEX Qty: 21 0RF Rx Instructions: orally per package directions Discharge Orders: Discharge ED (Routine); Ordered 07/13/25 Ordered By: Abran Emerson Referrals: Rm Cabral MD [Primary Care Provider, Family Practice] - 1-3 days Patient Instructions: Shoulder Pain (ED), Opioid Safety, Pain Management, Patient Portal & Janine Instructions Activity Restrictions/Additional Instructions: You may sling the arm, but do not do so for more than 5 days. Call your doctor on Tuesday for a follow-up appointment. Pain medication as directed. Ice will help with pain as well. Return for fever, worsening pain despite treatment, noticeable worsening swelling or redness, any other concerning symptoms Print Language: Georgian Coding Level of Care Code ED Physician Assistant for Maurilio Cao
[2025-07-14 00:36] VITALS: BP 161/65; PULSE 56; O2SAT 94
[2025-07-14 00:37] VITALS: BP 161/65; PULSE 58; O2SAT 98
[2025-07-14] MEDS: HYDROmorphone 0.5 MG/0.5 ML INJ 1 MG IM (01:42)
[2025-07-14 01:58] VITALS: BP 159/78; PULSE 58; O2SAT 93
== END 2025-07-14 01:58 | disposition home or self-care (01) ==
PROVIDERS: Emergency Provider Emergency Medicine; PCP Family Medicine
DX: M25.512 Pain in left shoulder (principal); Z79.84 Long term (current) use of oral hypoglycemic drugs; Z79.01 Long term (current) use of anticoagulants; E78.5 Hyperlipidemia, unspecified; E11.9 Type 2 diabetes mellitus without complications; I10 Essential (primary) hypertension
CPT/HCPCS: 73030; 96372; 99284; J1171; J1885